=== PATIENT | female | born 1945 | race Caucasian/White ===

== ENCOUNTER 2023-06-04 05:41 | Inpatient (IN) | payer MEDICARE, OTHER, SELFPAY ==
[2023-06-04] VITALS (17 sets, daily range): BP systolic 128–174; BP diastolic 69–99; PULSE 124; O2SAT 92–94; BMI 19.7; BMI 18.6
[2023-06-04] MEDS: DUONEB 3 ML INH ×5 (04:19→20:49)
[2023-06-04] MEDS: DECADRON 6 MG IV (04:19)
--- NOTE | 2023-06-04 04:23 | ED.GENMED ---
History of Present Illness
<Keo Smith MD - Last Filed: 06/04/23 13:10>
General
Chief Complaint: Breathing Problem
Source: patient and ambulance crew
Exam Limitations: none
Time Seen by Provider: 06/04/23 04:01
Nursing documentation reviewed up to this point in time: agreed with
Travel History
Have you had any contact with someone who has COVID-19?: No
Do you have any symptoms of coronavirus? Fever > 100 degrees, chills, cough, shortness of breath, sore throat, loss of taste or smell, muscle aches, or headache?: No
History of Present Illness
History of Present Illness:
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 Denies fever or chills. Denies chest pain. Denies chest palpitations. Denies back
pain. Denies nausea, vomiting, or diarrhea. Denies leg pain or swelling. Denies recent travel or surgery. Denies sick contact. Denies recent change in medications or diet. Per paramedics, patient's pulse ox was 88% on 2 L of oxygen with
significantly decreased breath sounds, along with respiratory distress. Patient was initially placed on CPAP, which she could not tolerate. Patient was given DuoNeb in route to the hospital along with supplemental oxygen.
Past History
<Keo Smith MD - Last Filed: 06/04/23 13:10>
Past History
ED Past Medical History: COPD and HTN
ED Past Surgical History: Gynecological and Orthopedic
Review of Systems
<Keo Smith MD - Last Filed: 06/04/23 13:10>
Review of Systems
Allergies reviewed?: Yes
All Other Systems: ROS reviewed and negative except as documented in HPI and ROS
Constitutional: Reports no symptoms; Denies fever
EENT: Reports no symptoms
Respiratory: Reports cough and trouble breathing
Cardiac: Reports no symptoms
ABD/GI: Reports no symptoms
: Reports no symptoms
Musculoskeletal: Reports no symptoms
Skin: Reports no symptoms
Neurological: Reports no symptoms
Phy Exam
<Keo Smith MD - Last Filed: 06/04/23 13:10>
Physical Exam
Physical Exam:
Physical Exam
General: mild respiratory distress, not acutely ill. afebrile
Head: nc/at. eomi
Neck: supple. no meningeal signs.
Heart: tachycardic, no murmur. equal radial pulses.
Lungs: mild respiratory distress. expiratory wheezing bilaterally with diminished breath sounds.
Abdomen: normal bowel sounds. not tender.
Neuro: alert and oriented. no focal neurological deficits
Skin: no rash
Psychiatric: well kept. interactive and cooperative
Extremities: no edema. no calf tenderness
<CLEMENT David - Last Filed: 06/04/23 05:45>
Heart Failure Risk
Heart Failure Risk Score: Not Applicable
Course
<Keo Smith MD - Last Filed: 06/04/23 13:10>
Orders/Labs/Results
Orders:
Orders
06/04/23 04:09
Dexamethasone Sod Phosphate [Decadron] 6 mg IV NOW STA
Ipratropium/Albuterol Sulfate [Duoneb] 3 ml INH R NOW ONE
06/04/23 04:10
Electrocardiogram (*1) Urgent
Reason for Study: Shortness of Breath
EKG- Treatment ONCE
CR Chest Portable - 1 View Urgent
Comment:
Reason For Exam: cough/sob
Reason Study Needs to be Portable: Patient Unstable
06/04/23 04:11
Dexamethasone Sod Phosphate [Decadron] 20 mg .ROUTE .STK-MED ONE
Ipratropium/Albuterol Sulfate [Duoneb] 3 ml .ROUTE .STK-MED ONE
06/04/23 04:21
COVID-19 Antigen Urgent
Source: Nasal Swab
Complete Blood Count/With Diff Urgent
Comprehensive Metabolic Panel Urgent
D-Dimer Urgent
Magnesium Urgent
Troponin I Urgent
Dexamethasone Sod Phosphate [Decadron] 6 mg IV NOW STA
06/04/23 05:29
Admit/Transfer Patient As Directed
Co-Sign Provider:
Level of Care: Inpatient admission
Assign to:: Telemetry
Physician / Group: Carmine
Diagnosis: Acute COPD Exac
Reason for Telemetry: Arrhythmia
Date to Stop Telemetry: 06/07/23
Time to Stop Telemetry: 11:00
Reason for Hospitalization: COPD
Expected length of stay greater than two midnights?: Yes
ELOS- Estimated Length of Stay in days: 3
I certify the patient meets the requirements for IP care: Yes
06/04/23 05:30
Code Status As Directed
Resuscitation Status: Full Code
06/04/23 07:40
Troponin I Q6H
Acetaminophen [Tylenol] 650 mg PO Q4HPRN PRN
Albuterol Nebs [Ventolin Nebules] 2.5 mg INH R Q4HPRN PRN
06/04/23 07:40
Consult Notification Routine
Specialty to Notify: Pulmonary
Date consulting provider notified: 06/04/23
Time consulting provider notified: 07:43
Notified:: Provider
Comment: TT @ [phone]
PULMONARY CONSULT Routine
Consulting Provider: Antonio Sweeney
Was physician already notified: No
Reason for consult: AE-COPD
Activity As Directed
Activity Level: Ambulate
With Assistance
I/O [Intake/ Output] As Directed
Frequency: Per unit guidelines
Vital Signs As Directed
Frequency: Per unit guidelines
Chest PT [Rx Chest Pt] [RESP] Routine
Special Instructions: BID
Oxygen Therapy [O2 Therapy] [RESP] Routine
Titrate/Wean O2 to maintain O2 sat greater than (%): 94
Ot Eval And Treat Routine
PT Consult [Pt Eval And Treat] Routine
Activity Level: Ambulate
With Assistance
DX Deep Vein Thrombosis Video Routine
06/04/23 08:00
Amlodipine [Norvasc] 10 mg PO DAILY
Budesonide [Pulmicort] 0.5 mg INH R BID
Famotidine [Pepcid] 20 mg PO DAILY
Guaifenesin [Mucinex] 1,200 mg PO Q12
Ipratropium/Albuterol Sulfate [Duoneb] 3 ml INH R QID
Levothyroxine [Synthroid] 50 mcg PO DAILY@0700
06/04/23 09:00
Lisinopril [Zestril] 30 mg PO DAILY
06/04/23 10:00
Doxycycline Hyclate [Vibramycin] 100 mg 0.9% Sodium Chloride 250 ml [Nss] 250 ml IV Q12H
06/04/23 12:00
Dexamethasone Sod Phosphate [Decadron] 4 mg IV Q8H
06/04/23 13:40
Troponin I Q6H
06/04/23 18:00
Enoxaparin Sodium [Lovenox] 40 mg SC QPM
06/04/23 19:40
Troponin I Q6H
06/04/23 22:00
Montelukast Sodium [Singulair] 10 mg PO HS
Pravastatin Sodium [Pravachol] 20 mg PO HS
06/05/23 Breakfast
Regular
At Your Request: Full Participation
Basic Metabolic Panel IN AM
Complete Blood Count/No Diff IN AM
06/07/23 11:00
DC Protocol for Telemetry ONCE
Abnormal Lab Results
06/04/23
04:21
WBC 12.6 H 10^3/uL
(4.8-10.8)
RBC 4.09 L 10^6/uL
(4.20-5.40)
MCH 31.5 H pg
(27.0-31.0)
MPV 11.5 H fL
(7.4-10.4)
Abs Immat Gran (auto) 0.1 H 10^3/uL
(0-0.05)
Absolute Neuts (auto) 7.0 H 10^3/uL
(1.4-6.5)
Absolute Lymphs (auto) 3.7 H 10^3/uL
(1.2-3.4)
Absolute Monos (auto) 1.4 H 10^3/uL
(0.1-0.6)
Monocytes % 11.1 H %
(1.7-9.3)
Glucose 142 H mg/dl
(70-99)
06/04/23 04:21
06/04/23 04:21
Vital Signs
Initial and Last Documented VS:
Initial Vital Signs
Pulse Ox
100
06/04/23 04:02
Last Documented Vital Signs
Temp Pulse Resp BP Pulse Ox
98 F 122 18 148/77 95
06/04/23 12:32 06/04/23 12:32 06/04/23 12:32 06/04/23 12:32 06/04/23 12:32
<CLEMENT David - Last Filed: 06/04/23 05:45>
Orders/Labs/Results
Orders:
Orders
06/04/23 04:09
Dexamethasone Sod Phosphate [Decadron] 6 mg IV NOW STA
Ipratropium/Albuterol Sulfate [Duoneb] 3 ml INH R NOW ONE
06/04/23 04:10
Electrocardiogram (*1) Urgent
Reason for Study: Shortness of Breath
EKG- Treatment ONCE
CR Chest Portable - 1 View Urgent
Comment:
Reason For Exam: cough/sob
Reason Study Needs to be Portable: Patient Unstable
06/04/23 04:11
Dexamethasone Sod Phosphate [Decadron] 20 mg .ROUTE .STK-MED ONE
Ipratropium/Albuterol Sulfate [Duoneb] 3 ml .ROUTE .STK-MED ONE
06/04/23 04:21
COVID-19 Antigen Urgent
Source: Nasal Swab
Complete Blood Count/With Diff Urgent
Comprehensive Metabolic Panel Urgent
D-Dimer Urgent
Magnesium Urgent
Troponin I Urgent
Dexamethasone Sod Phosphate [Decadron] 6 mg IV NOW STA
06/04/23 05:29
Admit/Transfer Patient As Directed
Co-Sign Provider:
Level of Care: Inpatient admission
Assign to:: Telemetry
Physician / Group: Carmine
Diagnosis: Acute COPD Exac
Reason for Telemetry: Arrhythmia
Date to Stop Telemetry: 06/07/23
Time to Stop Telemetry: 11:00
Reason for Hospitalization: COPD
Expected length of stay greater than two midnights?: Yes
ELOS- Estimated Length of Stay in days: 3
I certify the patient meets the requirements for IP care: Yes
06/04/23 05:30
Code Status As Directed
Resuscitation Status: Full Code
06/04/23 07:40
Troponin I Q6H
Acetaminophen [Tylenol] 650 mg PO Q4HPRN PRN
Albuterol Nebs [Ventolin Nebules] 2.5 mg INH R Q4HPRN PRN
06/04/23 07:40
Consult Notification Routine
Specialty to Notify: Pulmonary
Date consulting provider notified: 06/04/23
Time consulting provider notified: 07:43
Notified:: Provider
Comment: TT @ [phone]
PULMONARY CONSULT Routine
Consulting Provider: Antonio Sweeney
Was physician already notified: No
Reason for consult: AE-COPD
Activity As Directed
Activity Level: Ambulate
With Assistance
I/O [Intake/ Output] As Directed
Frequency: Per unit guidelines
Vital Signs As Directed
Frequency: Per unit guidelines
Chest PT [Rx Chest Pt] [RESP] Routine
Special Instructions: BID
Oxygen Therapy [O2 Therapy] [RESP] Routine
Titrate/Wean O2 to maintain O2 sat greater than (%): 94
Ot Eval And Treat Routine
PT Consult [Pt Eval And Treat] Routine
Activity Level: Ambulate
With Assistance
DX Deep Vein Thrombosis Video Routine
06/04/23 08:00
Amlodipine [Norvasc] 10 mg PO DAILY
Budesonide [Pulmicort] 0.5 mg INH R BID
Famotidine [Pepcid] 20 mg PO DAILY
Guaifenesin [Mucinex] 1,200 mg PO Q12
Ipratropium/Albuterol Sulfate [Duoneb] 3 ml INH R QID
Levothyroxine [Synthroid] 50 mcg PO DAILY@0700
06/04/23 09:00
Lisinopril [Zestril] 30 mg PO DAILY
06/04/23 10:00
Doxycycline Hyclate [Vibramycin] 100 mg 0.9% Sodium Chloride 250 ml [Nss] 250 ml IV Q12H
06/04/23 12:00
Dexamethasone Sod Phosphate [Decadron] 4 mg IV Q8H
06/04/23 13:40
Troponin I Q6H
06/04/23 18:00
Enoxaparin Sodium [Lovenox] 40 mg SC QPM
06/04/23 19:40
Troponin I Q6H
06/04/23 22:00
Montelukast Sodium [Singulair] 10 mg PO HS
Pravastatin Sodium [Pravachol] 20 mg PO HS
06/05/23 Breakfast
Regular
At Your Request: Full Participation
Basic Metabolic Panel IN AM
Complete Blood Count/No Diff IN AM
06/07/23 11:00
DC Protocol for Telemetry ONCE
Abnormal Lab Results
06/04/23
04:21
WBC 12.6 H 10^3/uL
(4.8-10.8)
RBC 4.09 L 10^6/uL
(4.20-5.40)
MCH 31.5 H pg
(27.0-31.0)
MPV 11.5 H fL
(7.4-10.4)
Abs Immat Gran (auto) 0.1 H 10^3/uL
(0-0.05)
Absolute Neuts (auto) 7.0 H 10^3/uL
(1.4-6.5)
Absolute Lymphs (auto) 3.7 H 10^3/uL
(1.2-3.4)
Absolute Monos (auto) 1.4 H 10^3/uL
(0.1-0.6)
Monocytes % 11.1 H %
(1.7-9.3)
Glucose 142 H mg/dl
(70-99)
06/04/23 04:21
06/04/23 04:21
Vital Signs
Initial and Last Documented VS:
Initial Vital Signs
Pulse Ox
100
06/04/23 04:02
Last Documented Vital Signs
Temp Pulse Resp BP Pulse Ox
98 F 122 18 148/77 95
06/04/23 12:32 06/04/23 12:32 06/04/23 12:32 06/04/23 12:32 06/04/23 12:32
<Keo Smith MD - Last Filed: 06/04/23 13:10>
MDM/Problems Addressed
MDM/Problems Addressed:
Chest x-ray: No acute findings. COVID-negative
Patient reports significant improvement in symptoms after treatment.
History and exam consistent with likely COPD exacerbation versus acute bronchitis. Patient will be admitted for further evaluation and treatment.
<Keo Smith MD - Last Filed: 06/04/23 13:10>
*EKG
Interpreted by ED Provider?: Yes
Heart Rate: 117
Rate: tachycardiac
Rhythm: sinus and PVC's
[place]: normal axis
Interval: normal interval
<CLEMENT David - Last Filed: 06/04/23 05:45>
*Critical Care Note
Total Time (30-74mins, 75-104mins- exclusive of procedures): Not Applicable
ED Attending Note
<Keo Smith MD - Last Filed: 06/04/23 13:10>
-
Portions of this chart may have been created with voice recognition software.� Occasional wrong word or��sound alike� substitutions may have occurred due to the inherent limitations of voice recognition software.
Discharge Plan
Departure
Patient Disposition: Admit
Date of Disposition: 06/04/23
Time of Disposition: 04:58
Admit to: Telemetry
Presentation/result/management discussed w/ accepting MD/DO: Hospitalist
Condition: Fair
Covid-19: Negative COVID-19
Discharge Problem:
COPD exacerbation
Interventions
Interventions:
*Risk Screen - Suicide Last Done: 06/04/23 04:03
*General Assessment Last Done: 06/04/23 04:03
*Neglect/Abuse Screening Last Done: 06/04/23 04:03
ED- Fall Risk Assessment Last Done: 06/04/23 04:03
*ED COVID-19 Vaccine History Last Done: 06/04/23 04:03
ED- Cardiac Assessment Last Done: 06/04/23 04:24
ED- Pulmonary Assessment Last Done: 06/04/23 04:24
[2023-06-04 04:38] LABS: % Basophils 1.1 % (0-2); % Eosinophils 1.9 % (0-6); % Immature Granulocytes 0.5 % (0-0.5); % Lymphocytes 29.7 % (20.5-51.1); % Monocytes 11.1 % (1.7-9.3); % Neutrophils 55.7 % (42.2-75.2); Absolute Basophils 0.1 10^3/uL (0-0.2); Absolute Eosinophils 0.2 10^3/uL (0-0.7); Absolute Immature Granulocytes 0.1 10^3/uL (0-0.05); Absolute Lymphocytes 3.7 10^3/uL (1.2-3.4); Absolute Monocytes 1.4 10^3/uL (0.1-0.6); Hematocrit 39.1 % (37.0-47.0); Hemoglobin 12.9 g/dL (12.0-16.0); Mean Corpuscular Hgb 31.5 pg (27.0-31.0); Mean Corpuscular Volume 95.6 fL (81.0-99.0); Mean Platelet Volume 11.5 fL (7.4-10.4); Nucleated Red Blood Cells % 0 %; Platelet Count 370 10^3/uL (130-400); Red Blood Cell Count 4.09 10^6/uL (4.20-5.40); Red Cell Dist. Width 12.8 % (11.5-14.5); White Blood Cell Count 12.6 10^3/uL (4.8-10.8)
[2023-06-04 04:44] LABS: COVID-19 Antigen Negative (Negative)
[2023-06-04 04:47] LABS: D-Dimer 0.41 ug/mlFEU (0.00-0.50)
[2023-06-04 04:49] LABS: ALT (SGPT) 22 U/L (0-35); AST (SGOT) 30 U/L (14-36); Albumin 4.8 g/dl (3.5-5.0); Alkaline Phosphatase 43 U/L (38-126); Blood Urea Nitrogen 15 mg/dl (7-17); Calcium 9.9 mg/dl (8.4-10.2); Carbon Dioxide 29 mmol/L (22-30); Chloride 101 mmol/L (98-107); Estimated Creatinine Clearance 44 ml/min; Glucose 142 mg/dl (70-99); Potassium 4.2 mmol/L (3.5-5.1); Sodium 138 mmol/L (135-145); Total Bilirubin 0.6 mg/dl (0.2-1.3); Total Protein 7.4 g/dl (6.3-8.2); eGFR > 60.00
[2023-06-04 05:00] LABS: Troponin I < 0.012 ng/ml
--- NOTE | 2023-06-04 05:33 | HPS.HSE ---
Family Physician
-
Family Physician: Shantelle Strickland
Chief Complaint
-
SOB
History of Present Illness
Patient is a 77y F with PMH significant for COPD who presents to ED complaining of SOB. Patient states that she has been more SOB than usual for the past week or so. She has had increased cough that was productive early in the week - but has
become gradually less so. Cough is now described as 'tight'. She has been wearing her O2 at 2 lpm at all times at home for the past 3 days or so (usually 1 lpm during the day and 2 lpm at HS). She has been using her nebs as prescribed but has
noted no significant improvement in her symptoms.
Patient states that she woke around 2AM feeling SOB. She checked her SpO2 at home and it was in the 80s. She attempted to get her breath, but ultimately woke her around 3 AM and presented to the ED for further evaluation.
Patient states that she also appreciated chest heaviness / L sided chest discomfort with this AM's symptoms.
Patient has been treated in the ED with oxygen, nebs and steroids and notes that she feels improved from initial arrival.
Patient was last hospitalized for similar in 09/2022.
She is followed locally by Dr. Ahmadi.
Medical History
Past Medical History
Past Medical History: Reports Other
Additional Past Medical History:
COPD
Hypertension
Hypothyroidism
Skin Cancer
Past Surgical History: Reports Other
Additional Past Surgical History:
Hysterectomy
Spinal Surgery
Foot Surgery
Skin Cancer Excision
Social History
Tobacco: Former Smoker (Quit smoking 2011. > 50 pack years total use.)
Alcohol: Occasional
Drug: None
Personal:
Living: With Family
Family History
Family History: Not pertinent
Allergies / Home Medications
Allergies reflects when Allergies were last updated in [facility].
Home Medications with original date entered in [facility]
Allergy/Medication List:
Allergies
Allergy/AdvReac Type Severity Reaction Status Date / Time
No Known Allergies Allergy Verified 06/04/23 04:02
Home Medications
amlodipine 10 mg tablet 10 mg PO DAILY Blood pressure 02/15/09
levothyroxine 50 mcg tablet 50 mcg PO DAILY Thyroid 02/15/09
lisinopril 30 mg tablet (Zestril) 30 mg PO DAILY Blood pressure 02/15/09
montelukast 10 mg tablet 10 mg PO HS Allergies 02/15/09
fluticasone fur. 100 mcg-umeclid 62.5 mcg-vilant 25 mcg inhalat.powder (Trelegy Ellipta) 1 ea inhalation R DAILY Lung/breathing issues 09/17/22
pravastatin 20 mg tablet 20 mg PO HS High cholesterol 09/17/22
budesonide 0.5 mg/2 mL suspension for nebulization 0.5 mg (2 mL) inhalation BID 30 days #120 mL 09/25/22
famotidine 20 mg tablet 20 mg PO DAILY 30 days #30 tabs 09/25/22
nebulizer and compressor #1 ea 09/25/22
albuterol sulfate 2.5 mg/3 mL (0.083 %) solution for nebulization 2.5 mg inhalation BID 06/04/23
Review of Systems
-
History Source: Patient
A 12 point ROS was completed and negative except as noted: Yes
Constitutional: Reports Fatigue; Denies Fever or Chills
EENT: Denies Sore Throat
Respiratory: Reports Cough and Trouble Breathing; Denies Hemoptysis
Cardiac: Reports Chest Pain; Denies Diaphoresis, Palpitations or Syncope
Abdomen/GI: Denies Abdominal Pain, Nausea, Vomiting or Diarrhea
: Denies Dysuria or Frequency
Musculoskeletal: Reports Edema; Denies Joint Pain
Neurological: Denies Dizzy or Headache
Psych: Denies Depression or Anxiety
Physical Exam
Vital Signs
Vital Signs
Temp Pulse Resp BP Pulse Ox
98.1 F 114 24 173/83 96
06/04/23 04:03 06/04/23 04:03 06/04/23 04:03 06/04/23 04:03 06/04/23 04:24
Physical Exam
General: Other (77y F in moderate distress due to dyspnea.)
HEENT: Moist mucous membranes, PERRLA and Other (Neck supple.)
Respiratory: Other (Markedly diminished breath sounds throughout. Faint end expiratory wheezing. Purse-lipped breathing with accessory muscle use.)
Cardiac: S1/S2 and Tachycardia; No Murmur
GI: Soft, Non Tender, Non Distended and Normal Bowel Sounds
Musculoskeletal: No Clubbing, No Cyanosis and Other (1+ pitting edema b/l ankles)
Neuro: AO x 3
Laboratory Results
-
06/04/23 04:21
06/04/23 04:21
Laboratory Results
Total Bilirubin 0.6 mg/dl (0.2-1.3) 06/04/23 04:21
AST 30 U/L (14-36) 06/04/23 04:21
ALT 22 U/L (0-35) 06/04/23 04:21
Alkaline Phosphatase 43 U/L (38-126) 06/04/23 04:21
Troponin I < 0.012 ng/ml 06/04/23 04:21
Impression/Plan
-
A/P: Patient is a 77y F with PMH significant for COPD and hypertension who presents to ED complaining of SOB.
AE-COPD
Acute Hypoxemic Respiratory Insufficiency secondary to the above
- Admit for further evaluation and treatment.
- Markedly diminished breath sounds throughout at present.
- IV steroids, O2 support, nebs ATC and PRN.
- IV doxycycline for now given harsh cough / mucus production.
- Chest PT / mucolytics.
- Pulm evaluation - followed by Dr. Ahmadi as an outpatient.
- Follow for clinical improvement.
Benign Hypertension
- Stable. Continue outpatient med regimen with holding parameters.
Hypothyroidism
- Stable. Continue T4 supplementation.
DVT Prophylaxis: Lovenox
Code Status: Full
[2023-06-04] MEDS: PULMICORT 0.5 MG INH ×2 (08:26→20:49)
[2023-06-04] MEDS: PEPCID 20 MG PO (09:07)
[2023-06-04] MEDS: MUCINEX 1200 MG PO ×2 (09:07→21:03)
[2023-06-04] MEDS: SYNTHROID 50 MCG PO (09:07)
[2023-06-04] MEDS: NORVASC 10 MG PO (09:07)
[2023-06-04] MEDS: ZESTRIL 30 MG PO (09:19)
[2023-06-04] MEDS: VIBRAMYCIN 260 MG IV ×2 (10:41→22:44)
--- NOTE | 2023-06-04 12:54 | W.PN.HOSP.TC ---
Today's Communication/Plan
-
continue Decadron
currently on Doxy, will defer to pulm if abx should be broadened
CT scan of chest
Assessment / Plan
Assessment / Plan
A/P:� Patient is a 77y F with PMH significant for COPD and hypertension who presents to ED complaining of SOB.
AE-COPD
Acute Hypoxemic Respiratory Insufficiency secondary to the above
�- Admit for further evaluation and treatment.
�- Improved breath sounds throughout at present with significant wheeze
�- IV steroids, O2 support, nebs ATC and PRN.
�- IV doxycycline for now given harsh cough / mucus production.
�- Chest PT / mucolytics.
�- Pulm evaluation - followed by Dr. Ahmadi as an outpatient.
�- Follow for clinical improvement.
continue Decadron 4 mg IV q8h
CT scan of chest
Benign Hypertension
�- Stable.� Continue outpatient med regimen with holding parameters.
Hypothyroidism
�- Stable.� Continue T4 supplementation.
DVT Prophylaxis:� Lovenox
Code Status:� Full
reviewed with at bedside
Anticipated Discharge: > 48 hours
Subjective/Interval History
-
Date of Service: June 04, 2023
remains sob, freq coughing
Objective Data
-
Labs:
Laboratory Results
06/04/23
04:21
WBC 12.6 H
Hgb 12.9
Hct 39.1
Plt Count 370
Sodium 138
Potassium 4.2
Chloride 101
Carbon Dioxide 29
BUN 15
Creatinine 0.8
Glucose 142 H
Calcium 9.9
Total Bilirubin 0.6
AST 30
ALT 22
Alkaline Phosphatase 43
Vital Signs:
Vital Signs
Temp Pulse Resp BP Pulse Ox
98 F 122 18 148/77 95
06/04/23 12:32 06/04/23 12:32 06/04/23 12:32 06/04/23 12:32 06/04/23 12:32
Review of Systems
-
Constitutional: Denies Fever
EENT: Reports No Symptoms Reported
Respiratory: Reports Cough, Trouble Breathing and Wheezing
Cardiac: Reports No Symptoms; Denies Chest Pain
Musculoskeletal: Reports No Symptoms
Physical Exam
-
General: Well Developed, Well Nourished and Respiratory Distress
HEENT: Normocephalic, Atraumatic and Moist Mucous Membranes
Respiratory: Wheezes (holoexpiratory wheeze) and Rhonchi (very rhonchus cough)
Cardiac: Regular Rhythm and S1/S2
GI: Soft, Nontender and Nondistended
Musculoskeletal: No Clubbing, No Cyanosis and No Edema
[2023-06-04] MEDS: DECADRON 4 MG IV ×2 (12:56→21:04)
--- NOTE | 2023-06-04 14:25 | PTCARENOTE ---
Patient unable to complete Ct scan of chest. Patient was too SOB. Patient on 4L NC 95%, RR 30-32, pursed lip breathing, unable to complete a sentence. Earlier it took patient 10 mins to recover from using BSC. Physician made aware and respiratory.
--- NOTE | 2023-06-04 15:00 | PTCARENOTE ---
Report given to Jeane, transfer patient to [id number].
--- NOTE | 2023-06-04 15:15 | PTCARENOTE ---
Physician at bedside, patient received neb treatment. Patient is breathing better and moving air better. RR 22, 4L NC 94-96%
--- NOTE | 2023-06-04 15:43 | CON.PUL ---
Consultation
Consultation Request
Date/Time Consultation Requested: 06-04-23
Date/Time Consultation Performed: 06-04-23
Requesting Provider: Hospitalist
Performing Provider: Dr Lara
Reason for Consultation: dyspnea
Medical History
-
Chief Complaint: dyspnea
History of Present Illness:
Ms Santiago Richardson is a 77/W adm with acute on chronic dyspnea and acute on chronic dry cough.
Known h/o very severe COPD, on comprehensive BD therapy and home O2 at 2LPM
Noticed mild improvement in dyspnea since after adm
Her previous unintentional wt loss has improved as c/w September 2022: depression/anxiety/poor appetite due to lung cancer diagnosis [currently on chemo-XRT at [facility] and locally]), and very severe COPD
Past Medical History
Past Medical History: Other (see A&P for PMH/PSH)
Social History
Tobacco: Former Smoker
Alcohol: None
Drug: None
Personal:
Living: With Family
Employment: Not Employed
Family History
Family History: Reviewed & Not Pertinent
Allergies / Home Medications
Allergies
Allergy/AdvReac Type Severity Reaction Status Date / Time
No Known Allergies Allergy Verified 06/04/23 04:02
Home Medications
Medication Instructions Recorded Confirmed Last Taken Type
amlodipine 10 mg tablet 10 mg PO DAILY Blood pressure 02/15/09 06/04/23 06/03/23 History
levothyroxine 50 mcg tablet 50 mcg PO DAILY@0600 Thyroid 02/15/09 06/04/23 06/03/23 History
lisinopril 30 mg tablet (Zestril) 30 mg PO DAILY Blood pressure 02/15/09 06/04/23 06/03/23 History
montelukast 10 mg tablet 10 mg PO HS Allergies 02/15/09 06/04/23 06/03/23 History
fluticasone fur. 100 mcg-umeclid 1 ea inhalation R DAILY 09/17/22 06/04/2324 History
62.5 mcg-vilant 25 mcg Lung/breathing issues
inhalat.powder (Trelegy Ellipta)
pravastatin 20 mg tablet 20 mg PO HS High cholesterol 09/17/22 06/04/23 06/03/23 History
famotidine 20 mg tablet 20 mg PO DAILY 30 days #30 tabs 09/25/22 06/04/23 06/03/23 Rx
acetaminophen 500 mg tablet 1,000 mg PO HS 06/04/23 06/04/23 06/03/23 History
(Tylenol Extra Strength)
albuterol sulfate 2.5 mg/3 mL 2.5 mg inhalation R BID 06/04/23 06/04/23 06/03/23 History
(0.083 %) solution for nebulization
albuterol sulfate 90 mcg/actuation 2 puff inhalation R Q6HPRN PRN sob 06/04/23 06/04/23 Unknown History
aerosol inhaler (ProAir HFA)
budesonide 0.5 mg/2 mL suspension 0.5 mg inhalation R BID 06/04/23 06/04/23 06/03/23 History
for nebulization
guaifenesin 400 mg tablet 400 mg PO BID 06/04/23 06/04/23 06/03/23 History
omega 6-hpn-wsb-fish oil 1,000 mg 1 cap PO DAILY 06/04/23 06/04/23 06/03/23 History
(120 mg-180 mg) capsule (Fish Oil)
therapeutic multivitamin 1 tab PO DAILY 06/04/23 06/04/23 06/03/23 History
Review of Systems
-
History Source: Patient
All other systems: Negative unless noted
Constitutional: Fatigue
Respiratory: Cough and Trouble Breathing
Neuro: Weakness
Vitals / Labs / Diagnostic Testing
Vital Signs
Temp Pulse Resp BP Pulse Ox
98 F 120 24 149/75 94
06/04/23 12:32 06/04/23 15:15 06/04/23 15:15 06/04/23 14:15 06/04/23 15:15
Lab Data
06/04/23 04:21
06/04/23 04:21
Diagnostic Testing:
Physical Exam
-
HEENT: Normocephalic and Moist Mucous Membranes
Cardiovascular: Regular Rhythm, Murmur (n) and Peripheral Edema (trace MAUREEN)
Respiratory: Wheeze (trace), Rhonchi and Accessory Resp Muscle Use (mild)
GI: Soft, Non Distended and Non Tender
Neurology: Awake, AO x 3 and No Motor Deficits
Skin: Dry
General: Respiratory Distress (mild at rest on O2)
Assessment
-
Assessment:
Ms Santiago Richardson is a 77/W adm with acute on chronic dyspnea and acute on chronic dry cough. Known h/o very severe COPD, on comprehensive BD therapy and home O2 at 2LPM
Impression:
AECOPD
Chronic leukocytosis
Negative COVID
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
COPD, on nocturnal home O2 at 2LPM, added exertional O2 2L for last 6m, on trelegy, albuterol HFA/nebs, montelukast
HTN
Hypothyroidism
HLD
Recent HZ, L posterior thigh
Contrast allergy
Plan:
O2 protocol to continue
Baseline O2 at home 2L
Currently at 4L, POx 94% at rest
States mild improvement of dyspnea since adm
Reports some increase in chronic dry cogh
Reports compliance to outpatient COPD regimen
Empiric doxycycline IV started at ER 06-04, continue
Procure sputum sample
Mucolytics
Acapella valve
She is not on chronic antimicrobial prophylaxis for COPD
Continue dexam as prescribed on adm: 4 mg IV q8
Will taper depending on response
She is not on chronic systemic CS
Continue Dns qid and alb ns prn for now
Hold LABDs for now, eventually return to trelegy
Continue budesonide
OK to continue budesonide, DNs, montelukast. Although we may consider resume trelegy upon d/c, she may benefit from ongoing nebulized therapy in the interim until seen in the office
Will need nebulizer prescription at d/c
DVT prophylaxis
Full code status
D/w and Mr Richardson
Follow with Dr Ahmadi as scheduled
Diagnostic tests:
CXR 06-04-23: portable, no infiltrates. Emphysematous lewis
Chest CTA 09-18-22
Comparison examination: Chest CT 11/09/2020
FINDINGS:
There is no pulmonary embolism.
There is no aortic dissection.
There is no pneumothorax.
There are no abnormal pleural or parenchymal masses.
There is no pleural effusion.
There is no significant parenchymal airspace disease.
The mediastinum is normal.
There is no hilar or mediastinal lymphadenopathy.
There is no axillary lymphadenopathy.
There is mild right middle lobe consolidation. There is mild atelectasis versus scarring of the lingula.
There is severe cystic change mostly in the right upper lung field but also the right lower lobe and left upper lung consistent with emphysematous disease.
There is a simple left renal cyst measuring 3.7 cm.
There is minimal atherosclerotic vascular disease. The osseous structures show mild degenerative disease.
IMPRESSION: No evidence of pulmonary embolus.
Mild right middle lobe consolidation. This may represent atelectasis or pneumonia. Stable
Mild lingular atelectasis versus scarring. Stable
Severe emphysematous disease. Stable
Simple left renal cyst. Stable
MAUREEN doppler 09-17-22: negative
TTE 01-07-23: LVEF 65%. Normal RV
--- NOTE | 2023-06-04 16:19 | PTCARENOTE ---
Received patient from ED via stretcher. AAOx3, assisted to bed. Assessed and oriented to room. estate agent reading ST. Breath sounds diminished. Tachypneic and pursed lip breathing noted. Call marina in close reach. Family at bedside.
[2023-06-04 16:49] LABS: Troponin I < 0.012 ng/ml
[2023-06-04] MEDS: LOVENOX 40 MG SC (17:27)
--- NOTE | 2023-06-04 19:30 | PTCARENOTE ---
Patient arrived to the unit via stretcher. Patient transferred over onto the bed. AAOx2. Disoriented to time. Patient confused on why she was here, RN called patient's daughter from room and put patient at ease. Patient educated on medications and
plan care. Stated she as in some pain in her LE's. BLIND INSTALLER ordered PRN tylenol. See MAR. Patient made comfortable in bed.
[2023-06-04] MEDS: PRAVACHOL 20 MG PO (21:04)
[2023-06-04] MEDS: SINGULAIR 10 MG PO (21:04)
[2023-06-04 22:46] LABS: Troponin I < 0.012 ng/ml
[2023-06-05] MEDS: DECADRON 4 MG IV ×3 (03:23→22:33)
[2023-06-05 03:27] VITALS: BP 122/72
[2023-06-05] MEDS: SYNTHROID 50 MCG PO (06:10)
[2023-06-05 07:25] VITALS: BP 111/56
[2023-06-05] MEDS: DUONEB 3 ML INH ×4 (07:43→20:14)
[2023-06-05] MEDS: PULMICORT 0.5 MG INH ×2 (07:43→20:13)
[2023-06-05 08:16] LABS: Hematocrit 33.3 % (37.0-47.0); Hemoglobin 10.9 g/dL (12.0-16.0); Mean Corp Hgb Conc. 32.7 g/dL (33.0-37.0); Mean Corpuscular Hgb 31.4 pg (27.0-31.0); Mean Platelet Volume 11.4 fL (7.4-10.4); Platelet Count 292 10^3/uL (130-400); Red Blood Cell Count 3.47 10^6/uL (4.20-5.40); Red Cell Dist. Width 13.2 % (11.5-14.5); White Blood Cell Count 7.9 10^3/uL (4.8-10.8)
[2023-06-05] MEDS: VIBRAMYCIN 260 MG IV (08:59)
[2023-06-05] MEDS: ZESTRIL 30 MG PO (08:59)
[2023-06-05] MEDS: MUCINEX 1200 MG PO ×2 (08:59→22:32)
[2023-06-05] MEDS: NORVASC 10 MG PO (08:59)
[2023-06-05] MEDS: PEPCID 20 MG PO (08:59)
[2023-06-05 09:51] LABS: Blood Urea Nitrogen 20 mg/dl (7-17); Calcium 8.9 mg/dl (8.4-10.2); Carbon Dioxide 27 mmol/L (22-30); Chloride 101 mmol/L (98-107); Estimated Creatinine Clearance 41 ml/min; Glucose 140 mg/dl (70-99); Potassium 4.9 mmol/L (3.5-5.1); Sodium 137 mmol/L (135-145); eGFR > 60.00
--- NOTE | 2023-06-05 10:21 | W.PN.HOSP.TC ---
Addendum entered and electronically signed by Honey Bennett MD 06/05/23 14:41:
Acute on chronic� Hypoxic respiratory Failure
-see treatment plan below
Underweight
- appreciate dietary
Original Note:
Today's Communication/Plan
-
decadron
duonebs
doxycycline
appreciate pulm
Assessment / Plan
Assessment / Plan
A/P:� Patient is a 77y F with PMH significant for COPD and hypertension who presents to ED complaining of SOB.
AE-COPD
Acute Hypoxemic Respiratory Insufficiency secondary to the above
�- Improved breath sounds throughout at present with significant wheeze
�- IV steroids, O2 support, nebs ATC and PRN.
�- continue doxycycline given harsh cough / mucus production.
�- Chest PT / mucolytics.
�- Pulm evaluation appreciated- followed by Dr. Ahmadi as an outpatient.
�- Follow for clinical improvement.
continue Decadron 4 mg IV q8h
CT scan of chest w/out contrast ordered
-will need nebulizer prescription at [place] - consult placed
Patient needs a nebulizer due to chronic lung disease.
Benign Hypertension
�- Stable.� Continue outpatient med regimen with holding parameters.
Hypothyroidism
�- Stable.� Continue T4 supplementation.
DVT Prophylaxis:� Lovenox
Code Status:� Full
reviewed with at bedside
Anticipated Discharge: > 48 hours
Subjective/Interval History
-
Date of Service: June 05, 2023
patient with some deep breathing when I walked in stating she was anxious from IV leaking
still very OOB with using bathroom, anxiety
nebulizers help
she is able to converse with me
Objective Data
-
Labs:
Laboratory Results
06/05/23
07:24
WBC 7.9
Hgb 10.9 L
Hct 33.3 L
Plt Count 292 D
Sodium 137
Potassium 4.9
Chloride 101
Carbon Dioxide 27
BUN 20 H
Creatinine 0.8
Glucose 140 H
Calcium 8.9
Vital Signs:
Vital Signs
Temp Pulse Resp BP Pulse Ox
98.1 F 96 18 111/56 97
06/05/23 07:25 06/05/23 07:50 06/05/23 07:50 06/05/23 07:25 06/05/23 09:05
I&O
06/04/23 06/05/23 06/06/23
06:59 06:59 06:59
Intake Total 920 / 920
Balance 920 / 920
Review of Systems
-
History Source: Patient
All other systems: Reviewed and negative
Physical Exam
-
General: Well Developed, Well Nourished and Respiratory Distress
HEENT: Normocephalic, Atraumatic and Moist Mucous Membranes
Respiratory: Wheezes (end expiratory ) and Decreased Breath Sounds
Cardiac: Regular Rhythm and S1/S2
GI: Soft, Nontender and Nondistended
Musculoskeletal: No Clubbing, No Cyanosis and No Edema
Skin: Warm and Dry; Negative Rash
Neuro: AO x 3
Psych: Anxious
Data Reviewed
-
Diagnostic Radiology: Report Reviewed by me
Labs: Labs Reviewed by me
--- NOTE | 2023-06-05 11:24 | W.PN.PUL3 ---
Today's Communication / Plan
-
O2
Atb
Sputum cx
BDs
CS
Assessment
-
Assessment:
Ms Santiago Richardson is a 77/W adm with acute on chronic dyspnea and acute on chronic dry cough. Known h/o very severe COPD, on comprehensive BD therapy and home O2 at 2LPM
Impression:
AECOPD
Chronic leukocytosis
Negative COVID
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
Very COPD, on nocturnal and exertional home O2 at 2LPM, on trelegy, albuterol HFA/nebs, montelukast
HTN
Hypothyroidism
HLD
Plan:
O2 protocol to continue
Baseline O2 at home 2L
Currently at 4L, POx 96% at rest
States mild improvement of dyspnea since adm
Reports some increase in chronic dry cough, today able to expectorate small amount of yellow sputum (sent for cx 06-05)
Reports compliance to outpatient COPD regimen
Empiric doxycycline IV started at ER 06-04, continue
Mucolytics
Acapella valve
She is not on chronic antimicrobial prophylaxis for COPD
Continue dexam as prescribed on adm: 4 mg IV q8, keep for now
Will taper depending on response
She is not on chronic systemic CS
Continue Dns qid and alb ns prn for now
Hold LABDs for now, eventually return to trelegy
Continue budesonide
OK to continue budesonide, DNs, montelukast.
DVT prophylaxis
Full code status
D/w and Mr Dylan on a daily basis
Follow with Dr Ahmadi as scheduled
Diagnostic tests:
CXR 06-04-23: portable, no infiltrates. Emphysematous lewis
Chest CTA 09-18-22
Comparison examination: Chest CT 11/09/2020
FINDINGS:
There is no pulmonary embolism.
There is no aortic dissection.
There is no pneumothorax.
There are no abnormal pleural or parenchymal masses.
There is no pleural effusion.
There is no significant parenchymal airspace disease.
The mediastinum is normal.
There is no hilar or mediastinal lymphadenopathy.
There is no axillary lymphadenopathy.
There is mild right middle lobe consolidation. There is mild atelectasis versus scarring of the lingula.
There is severe cystic change mostly in the right upper lung field but also the right lower lobe and left upper lung consistent with emphysematous disease.
There is a simple left renal cyst measuring 3.7 cm.
There is minimal atherosclerotic vascular disease. The osseous structures show mild degenerative disease.
IMPRESSION: No evidence of pulmonary embolus.
Mild right middle lobe consolidation. This may represent atelectasis or pneumonia. Stable
Mild lingular atelectasis versus scarring. Stable
Severe emphysematous disease. Stable
Simple left renal cyst. Stable
MAUREEN doppler 09-17-22: negative
TTE 01-07-23: LVEF 65%. Normal RV
Subjective Data
-
Date of Service:
Date of Service: June 05, 2023
Chief Complaint: Pulmonary Follow Up
Subjective:
No major events reported overnight
No able to expectorate scanty yellowish sputum this morning
Review of Systems
General: Fever (n), Sweats (n), Chills (n) and Satisfactory Appetite
HEENT: Epistaxis (n) and Dysphagia (n)
Cardiopulmonary: Dyspnea, Cough, Sputum Production and Wheezing
GI: Abdominal Pain (n), Nausea (n) and Vomiting (n)
Neuro: Weakness
Objective Data
Data Reviewed
Vital Signs / I&O / Oxygen:
Vital Signs
Temp Pulse Resp BP Pulse Ox
98.1 F 96 18 111/56 97
06/05/23 07:25 06/05/23 07:50 06/05/23 07:50 06/05/23 07:25 06/05/23 09:05
Intake and Output
06/04/23 06/05/23 06/06/23
06:59 06:59 06:59
Intake Total 920 / 920
Balance 920 / 920
SaO2 97
Nasal Cannula flow liters per 4
minute
Physical Exam
General: Comfortable
HEENT: Normocephalic and Moist Mucous Membranes
Cardiovascular: Regular Rhythm, Murmur (n), JVD, Peripheral Edema (n) and Calf Tenderness (n)
Respiratory: Wheeze (trace), Rhonchi, Accessory Resp Muscle Use and Stridor (n)
GI: Soft, Non Distended and Non Tender
Neurology: AO x 3 and No Motor Deficits
Skin: Dry
Labs/Micro/Reports
Lab Data
06/05/23 07:24
06/05/23 07:24
[2023-06-05 11:29] VITALS: BP 162/76
--- NOTE | 2023-06-05 13:47 | CM ---
Reviewed chart, met with patient, her spouse and two sons to obtain information for assessment. Patient stated that she lives in a multi-story town home with one step to enter a stair glide to get from the first floor to the next.
Patient described herself as independent with some of her ADLs, dressing, bathing and toileting. Her spouse is home and available in the event she gets sob. 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
they both do laundry.
Patient is on continuos o2 2 liters. She has a concentrator and portable units. She has a nebulizer but it is old. She has a rollator that she uses when she gets tired.
Patient has a prescription plan and uses the [facility] in [place] for all of her medications. She has a cardiologist whom she sees as well as a PCP.
Patient has had VN services in the past through [facility]. She denied wanting them post this admission. She has never been to a SNF and is hopeful just to be able to return right home when she is medically cleared for discharge.
Plan: Case management will continue to follow and assist with discharge planning. Patient is hoping to be able to return home with no needs. Received consult for nebulizer.
--- NOTE | 2023-06-05 14:16 | PN.CDI ---
CDI
- -
CDI:
Physician Documentation Request
Admit Date: 06/04/23 05:41
Dear Doctor Donald,
Please review the following and provide your response in the progress notes.
Clinical Indicators:
Height:5 ft 2 in
Weight: 101 lb 9.6 oz
BMI:18.6
Other Clinical Notes: Pulmonology consult,' ....poor appetite due to lung cancer diagnosis...'
If possible, please provide an associated diagnosis related to the abnormal BMI, such as:
BMI < or = to 19
Underweight
Cachexia
- Other
Use of terms such as suspected, likely, concern for, or probable (associated with a specific diagnosis that is being evaluated, monitored, or treated as if it exists) are acceptable and can be coded in the inpatient setting, when documented at the
time of discharge.
Thank you,
Jeanie Ascencio RN
CDI Specialist
[place] [facility]
Please use your independent medical judgment in providing your response.
--- NOTE | 2023-06-05 14:19 | PN.CDI ---
CDI
- -
CDI:
Physician Documentation Request
Admit Date: 06/04/23 05:41
Dear Doctor Donald,
Please review the following and provide your response in the progress notes.
Clinical Indicators:
Pt admitted with COPD exacerbation on 2 LPM home oxygen via NC
Documented throughout the record, ' Acute Hypoxemic Respiratory Insufficiency ...'
Documented per EMS record, ' ...sitting in tripod position on the edge of her bed stating she can't breathing.The patient in obvious and severe distress with tachypnea, accessory muscle use and speaking in 1-2 word sentences .The patient was also
noted to be pursed lip breathing and found on nasal oxygen at 2 LPM ...The patient stated she has a history of COPD and is always on oxygen via NC NC @ 2 LPM ...pulse ox was initially 82 % ...NRB mask was replaced with duoneb treatment... placed
on CPAP.After about 1 minute she was complaining of increased trouble breathing ...It was replaced with the NRB @ 20 LPM .' 15 LPM Pulse 116, RR 36 effort labored 36
Pt care note 06/04 @ 1425, ' Patient was too SOB. Patient on 4L NC 95%, RR 30-32, pursed lip breathing, unable to complete a sentence. Earlier it took patient 10 mins to recover from using BSC..'
Documented per ED, ' Patient with history of oxygen dependent COPD (2 L via nasal cannula), presents to ED secondary to worsening shortness of breath with cough over the past 3 days...mild respiratory distress... tachycardic, ...'
Documented per H&P,' She has been wearing her O2 at 2 lpm at all times at home for the past 3 days or so (usually 1 lpm during the day and 2 lpm at HS)...She checked her SpO2 at home and it was in the 80s. ....Respiratory: Other (Markedly
diminished breath sounds throughout. Faint end expiratory wheezing. Purse-lipped breathing with accessory muscle use.)...'
Clarify which of the following accurately represents the patient's respiratory status:
Acute on chronic Hypoxic respiratory Failure
Chronic Hypoxic respiratory Failure
COPD exacerbation -only
Hypoxia
Other
Additional information for Respiratory Failure:
Recognized criteria for Respiratory Failure (Source: [facility] Feb/Mar 2013)
ABGs: (1 or more) Symptoms Please indicate type if known
1. p)2 <60 or RA SPO2 <91% on RA 1. Tachypnea, SOB, dyspnea Hypoxic
2. pCO2 50 and pH <7.35 2. Use of accessory muscles Hypercapnic
3. pO2 decrease of pCO2 increase by 3. Pallor or cyanosis Hypoxic and Hypercapnic
10 mmHg from baseline if known 4. Anxiety or restlessness Unable to determine
5. Unable to speak in full sentences
Supplemental O2 of > 40% (5LPM) Intubation is not required
Use of terms such as suspected, likely, concern for, or probable (associated with a specific diagnosis that is being evaluated, monitored, or treated as if it exists) are acceptable and can be coded in the inpatient setting, when documented at the
time of discharge.
Thank you,
Jeanie Ascencio RN
CDI Specialist
[place] [facility]
Please use your independent medical judgment in providing your response.
[2023-06-05 15:36] VITALS: BP 136/66
[2023-06-05] MEDS: LOVENOX 40 MG SC (17:00)
[2023-06-05] MEDS: TYLENOL 650 MG PO (17:04)
[2023-06-05 19:20] VITALS: BP 137/68
[2023-06-05] MEDS: SINGULAIR 10 MG PO (22:33)
[2023-06-05] MEDS: PRAVACHOL 20 MG PO (22:33)
[2023-06-05] MEDS: VIBRAMYCIN 100 MG PO (22:33)
[2023-06-05 23:03] VITALS: BP 118/58
[2023-06-06] VITALS (8 sets, daily range): BP systolic 110–161; BP diastolic 57–115; PULSE 104; O2SAT 93
[2023-06-06] MEDS: DECADRON 4 MG IV ×3 (04:12→21:15)
[2023-06-06] MEDS: SYNTHROID 50 MCG PO (05:31)
[2023-06-06] MEDS: PULMICORT 0.5 MG INH ×2 (07:27→19:50)
[2023-06-06] MEDS: DUONEB 3 ML INH ×4 (07:27→19:50)
[2023-06-06] MEDS: ZESTRIL 30 MG PO (09:28)
[2023-06-06] MEDS: MUCINEX 1200 MG PO ×2 (09:28→21:15)
[2023-06-06] MEDS: VIBRAMYCIN 100 MG PO (09:28)
[2023-06-06] MEDS: NORVASC 10 MG PO (09:28)
[2023-06-06] MEDS: PEPCID 20 MG PO (09:29)
--- NOTE | 2023-06-06 10:30 | W.PN.HOSP.TC ---
Today's Communication/Plan
-
Continue with current steroids with a taper.
Continue with nebulizers and antibiotics
For CT chest today.
Assessment / Plan
Assessment / Plan
A/P:� Patient is a 77y F with PMH significant for COPD and hypertension who presents to ED complaining of SOB.
AE-COPD
Acute Hypoxemic Respiratory Insufficiency secondary to the above
�- Improved breathing but still symptomatic
�- IV steroids without taper, O2 support, nebs ATC and PRN.
�- continue doxycycline given harsh cough / mucus production.
�- Chest PT / mucolytics.
�- Pulm evaluation appreciated- followed by Dr. Ahmadi as an outpatient.
�- Follow for clinical improvement.
continue Decadron 4 mg IV q8h
CT scan of chest w/out contrast ordered-patient with shortness of breath and also getting worked up and anxious about her chest CT. Will give 1 dose of Ativan.
-will need nebulizer prescription at [facility] consult placed
Patient needs a nebulizer due to chronic lung disease.
Benign Hypertension
�- Stable.� Continue outpatient med regimen with holding parameters.
Hypothyroidism
�- Stable.� Continue T4 supplementation.
DVT Prophylaxis:� Lovenox
Code Status:� Full
reviewed with at bedside
Anticipated Discharge: > 48 hours
Subjective/Interval History
-
Date of Service: June 06, 2023
Patient overall feeling improved with her breathing since admission. At home she could not even breathe. Now she is able to breathe little better but still having struggle this morning. She is also very anxious about her CAT scan chest today.
She does not take anything for anxiety.
Objective Data
-
Vital Signs:
Vital Signs
Temp Pulse Resp BP Pulse Ox
98.0 F 94 22 132/60 98
06/06/23 07:30 06/06/23 09:28 06/06/23 07:33 06/06/23 09:28 06/06/23 07:33
I&O
06/05/23 06/06/23 06/07/23
06:59 06:59 06:59
Intake Total 920 / 920 720 / 720
Balance 920 / 920 720 / 720
Review of Systems
-
Constitutional: Denies Fever
EENT: Denies Sore Throat
Respiratory: Reports Cough and Trouble Breathing
Cardiac: Denies Chest Pain
Abdomen/GI: Denies Abdominal Pain, Nausea or Vomiting
Neuro: Denies Dizzy
Physical Exam
-
General: No Apparent Distress
HEENT: Moist Mucous Membranes
Respiratory: Decreased Breath Sounds (In general); Negative Non Labored Respirations (Tachypnea) or Accessory Resp Muscle Use
Cardiac: Regular Rhythm and S1/S2
Musculoskeletal: No Edema
Neuro: AO x 3; Negative Tremors
Psych: Calm; Negative Confused
Data Reviewed
-
Labs: Labs Reviewed by me
[2023-06-06] MEDS: ATIVAN 0.5 MG PO (11:13)
--- NOTE | 2023-06-06 12:01 | W.PN.PUL3 ---
Today's Communication / Plan
-
O2
Azithro
Sputum cx
BDs
CS with wean as tolerated
Assessment
-
Assessment:
Ms Santiago Richardson is a 77/W adm with acute on chronic dyspnea and acute on chronic dry cough. Known h/o very severe COPD, on comprehensive BD therapy and home O2 at 2LPM
Impression:
AECOPD
Chronic leukocytosis - resolved 06/05/2023
Negative COVID
Conditions LABELING STRATEGIST:
Severe COPD (post-BD FEV1: 44%, DLco: 27% via PFT from 05/2018), on nocturnal and exertional home O2 at 2LPM, on trelegy, albuterol HFA/nebs, montelukast
HTN
Hypothyroidism
HLD
Plan:
O2 protocol to continue --> titrate to keep SpO2 >88% and <96%
Baseline O2 at home 2L
Currently at 4L, POx 96% at rest
States mild improvement of dyspnea since adm and seems to worsen with anxiety
Reports some increase in chronic dry cough, able to expectorate small amount of yellow sputum (sent for cx 06-05)
Reports compliance to outpatient COPD regimen
Empiric doxycycline IV started at ER 06-04, continue
There is no evidence of pneumonia on CT chest today --> change doxy to azithro for anti-inflammatory effect
Mucolytics
Acapella valve
She is not on chronic antimicrobial prophylaxis for COPD
Continue dexam as prescribed on adm: 4 mg IV q8, keep for now
Will taper depending on response
She is not on chronic systemic CS
Continue Dns qid and alb ns prn for now
Hold LABDs for now, eventually return to trelegy
Continue budesonide
OK to continue budesonide, DNs, montelukast.
DVT prophylaxis
Full code status
D/w Mrs and Mr Richardson on a daily basis
Pulmonary service will continue to follow along. I discussed above plan with the patient and her and they verbalized understanding to their satisfaction.
Follow with Dr Ahmadi as scheduled
Diagnostic tests:
CXR 06-04-23: portable, no infiltrates. Emphysematous lewis
Chest CTA 09-18-22
Comparison examination: Chest CT 11/09/2020
FINDINGS:
There is no pulmonary embolism.
There is no aortic dissection.
There is no pneumothorax.
There are no abnormal pleural or parenchymal masses.
There is no pleural effusion.
There is no significant parenchymal airspace disease.
The mediastinum is normal.
There is no hilar or mediastinal lymphadenopathy.
There is no axillary lymphadenopathy.
There is mild right middle lobe consolidation. There is mild atelectasis versus scarring of the lingula.
There is severe cystic change mostly in the right upper lung field but also the right lower lobe and left upper lung consistent with emphysematous disease.
There is a simple left renal cyst measuring 3.7 cm.
There is minimal atherosclerotic vascular disease. The osseous structures show mild degenerative disease.
IMPRESSION: No evidence of pulmonary embolus.
Mild right middle lobe consolidation. This may represent atelectasis or pneumonia. Stable
Mild lingular atelectasis versus scarring. Stable
Severe emphysematous disease. Stable
Simple left renal cyst. Stable
MAUREEN doppler 09-17-22: negative
TTE 01-07-23: LVEF 65%. Normal RV
Subjective Data
-
Date of Service:
Date of Service: June 06, 2023
Chief Complaint: Pulmonary Follow Up
Subjective:
Seen today. Saturating 97% on 3 L/min nasal cannula. She feels like her breathing is better today and that it is directly related to anxiety. She took Ativan today prior to her CT chest send the Ativan really helped her breathing. She denies
chest pain, headache, worsening shortness of breath, fevers or chills.
Review of Systems
General: Other (12 point ROS performed and is negative unless mentioned above.)
Objective Data
Data Reviewed
Vital Signs / I&O / Oxygen:
Vital Signs
Temp Pulse Resp BP Pulse Ox
98.1 F 104 22 144/65 92
06/06/23 15:38 06/06/23 15:38 06/06/23 15:38 06/06/23 15:38 06/06/23 15:38
Intake and Output
06/05/23 06/06/23 06/07/23
06:59 06:59 06:59
Intake Total 920 / 920 720 / 720
Balance 920 / 920 720 / 720
SaO2 92
Nasal Cannula flow liters per 3
minute
Physical Exam
General: Respiratory Distress (Negative) and Comfortable
HEENT: Normocephalic and Moist Mucous Membranes
Cardiovascular: Regular Rhythm, Murmur (n), JVD, Peripheral Edema (n) and Calf Tenderness (n)
Respiratory: Wheeze (trace), Rhonchi, Accessory Resp Muscle Use (Negative), Stridor (n) and Other (Grossly diminished breath sounds)
GI: Soft, Non Distended and Non Tender
Neurology: AO x 3 and No Motor Deficits
Skin: Warm and Dry
Labs/Micro/Reports
Lab Data
06/05/23 07:24
06/05/23 07:24
Microbiology
06/05/23 13:22 Sputum Respiratory Culture - Final
06/05/23 13:22 Sputum Gram Stain - Final
[2023-06-06] MEDS: LOVENOX 40 MG SC (18:26)
[2023-06-06] MEDS: ZITHROMAX INFUSION 250 IV (18:26)
[2023-06-06] MEDS: PRAVACHOL 20 MG PO (21:15)
[2023-06-06] MEDS: SINGULAIR 10 MG PO (21:15)
[2023-06-06] MEDS: TYLENOL 650 MG PO (21:30)
[2023-06-07] VITALS (68 sets, daily range): BP systolic 51–176; BP diastolic 31–102; BMI 18.9
[2023-06-07] MEDS: DECADRON 4 MG IV ×3 (04:34→20:00)
[2023-06-07] MEDS: SYNTHROID 50 MCG PO (05:29)
[2023-06-07] MEDS: PULMICORT 0.5 MG INH (07:52)
[2023-06-07] MEDS: DUONEB 3 ML INH ×4 (07:52→19:35)
[2023-06-07 08:09] LABS: Hematocrit 32.9 % (37.0-47.0); Mean Corp Hgb Conc. 33.4 g/dL (33.0-37.0); Mean Corpuscular Hgb 32.3 pg (27.0-31.0); Mean Corpuscular Volume 96.5 fL (81.0-99.0); Mean Platelet Volume 12.3 fL (7.4-10.4); Platelet Count 312 10^3/uL (130-400); Red Blood Cell Count 3.41 10^6/uL (4.20-5.40); Red Cell Dist. Width 13.2 % (11.5-14.5); White Blood Cell Count 11.3 10^3/uL (4.8-10.8)
[2023-06-07] MEDS: NORVASC 10 MG PO (09:34)
[2023-06-07] MEDS: MUCINEX 1200 MG PO (09:34)
[2023-06-07] MEDS: PEPCID 20 MG PO (09:34)
[2023-06-07] MEDS: ZESTRIL 30 MG PO (09:34)
[2023-06-07] MEDS: ZITHROMAX 250 MG PO (09:35)
[2023-06-07] MEDS: ATROVENT NEBULES 1 MG INH (10:05)
[2023-06-07] MEDS: XOPENEX 1.25 MG INHALANT SOLUTION INH (10:05)
[2023-06-07] MEDS: MORPHINE SULFATE 1 MG IV (10:12)
[2023-06-07] MEDS: FLUSH (NSS) 2 FLUSH IV (10:13)
--- NOTE | 2023-06-07 10:20 | RR ---
A Rapid Response was called on this patient, please see Rapid Response form.
--- NOTE | 2023-06-07 10:20 | PTCARENOTE ---
0940 assisted patient back to bed from commode, heart rate as high as 160's, resp rate 34/min patient struggling to breath. pox 89% on 4l nasal cannula, patient reporting SOB and pain in left chest and of feeling hot. O2 increased to 6 liters,
0945 Dr Reaves and resp therapist texted and asked to come and see patient. 1000 EKG completed, Dr and therapist at bedside , updated. Xopenex treatment given, heart remaining in 130's 1015, morphine 1mg IV given as ordered, neb finished and patient
less responsive, not following commands, rapid respnse called and Dr Reaves texted with update and asked to return to room. Doctor at bedside within minutes. see rapid response form.
[2023-06-07 10:29] LABS: Glucose - Point of Care 181 mg/dl (70-99)
[2023-06-07 10:37] LABS: B.E. -0.3 mmol/L; O2 Saturation % 88.6 % (94-98); PO2 60 mmHg (83-108)
[2023-06-07 10:40] LABS: pH 7.15 (7.35-7.45)
[2023-06-07 10:41] LABS: PCO2 89 mmHg (32-35)
[2023-06-07 11:09] LABS: Hematocrit 40.5 % (37.0-47.0); Hemoglobin 13.1 g/dL (12.0-16.0); Mean Corp Hgb Conc. 32.3 g/dL (33.0-37.0); Mean Corpuscular Volume 98.8 fL (81.0-99.0); Mean Platelet Volume 11.8 fL (7.4-10.4); Platelet Count 415 10^3/uL (130-400); Red Cell Dist. Width 13.1 % (11.5-14.5); White Blood Cell Count 16.8 10^3/uL (4.8-10.8)
[2023-06-07] MEDS: SUBLIMAZE 50 MCG IV ×3 (11:28→12:53)
[2023-06-07] MEDS: SUBLIMAZE 100 IV (11:29)
[2023-06-07 11:39] LABS: ALT (SGPT) 31 U/L (0-35); AST (SGOT) 34 U/L (14-36); Albumin 4.8 g/dl (3.5-5.0); Alkaline Phosphatase 45 U/L (38-126); Blood Urea Nitrogen 25 mg/dl (7-17); Calcium 9.3 mg/dl (8.4-10.2); Carbon Dioxide 32 mmol/L (22-30); Chloride 99 mmol/L (98-107); Estimated Creatinine Clearance 37 ml/min; Glucose 207 mg/dl (70-99); Potassium 5.3 mmol/L (3.5-5.1); Sodium 135 mmol/L (135-145); Total Bilirubin 0.6 mg/dl (0.2-1.3); Total Protein 7.6 g/dl (6.3-8.2); eGFR > 60.00
[2023-06-07 11:50] LABS: Troponin I < 0.012 ng/ml
--- NOTE | 2023-06-07 12:08 | W.PN.INTV ---
Today's Communication / Plan
Recommendations
Continue mechanical ventilation
Follow chest tube output
Daily chest x-ray
Continue steroids
Continue nebulizers
Continue sedation
Assessment
-
Acute hypercapnic respiratory failure due to severe exacerbation of COPD-transfer from floors 06/07/2023
Emergently intubated at the bedside in the ICU-06/07/2023
CT chest this admission: Severe emphysema. No pneumonia.
Spontaneous secondary pneumothorax on the left
Status post emergent chest tube placement 06/07/2023
Conditions INVESTIGATIONS MANAGER:
Severe COPD (post-BD FEV1: 44%, DLco: 27% via PFT from 05/2018), on nocturnal and exertional home O2 at 2LPM, on trelegy, albuterol HFA/nebs, montelukast
Follows with Dr. Ahmadi
HTN
Hypothyroidism
HLD
Assessment and plan:
Critically ill: Emergently intubated due to worsening shortness of breath-initially admitted for acute exacerbation of COPD.
ABG prior to intubation 7 ..
Emergently intubated: I was at the bedside during intubation: Tooth #7 was placed-#8 tube too large for her.
Developed hypotension post propofol and paralysis for intubation.
Small amount of Dylan-Synephrine was given.
Fluid resuscitation with normal saline was given.
-
On exam noted asymmetric breath sounds. Chest x-ray confirmed left pneumothorax moderate to large.
Immediately discussed with interventional radiology: Dr. Marlow came at the bedside and placed a chest tube.
Currently with continuous airleak.
-
On mechanical ventilation unable to deliver tidal volumes due to ongoing air leak.
Pulmonary mechanics reviewed.
Personally adjusted mechanical ventilation to pressure control.
Will target tidal volume between 280 and 300 to decrease transpulmonary pressure.
PEEP of 5.
Maintain respiratory rate of 14
Maintain sedation
Repeat ABG, will adjust minute ventilation as necessary.
Will keep sedation
-
Remains hypotensive: PICC line will be placed.
Started Levophed, maintain mean arterial blood pressure 65 mmHg.
Hopefully hemodynamics will improve as sedation wears off. Will try to minimize as able.
Hold antihypertensives
-
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
Will continue conservative management.
-
Continue steroids
Nebulizers
Azithromycin for anti-inflammatory properties
Recent CT chest without pneumonia.
Obtain a sputum culture.
-
Dobbhoff tube will be placed: Start tube feedings
-
Monitor blood sugars on high-dose of steroids
Insulin sliding scale
-
DVT prophylaxis subcu Lovenox
PPI for GI prophylaxis
-
Personally discussed case with primary team, interventional radiology, anesthesia. Records reviewed.
-
Critical care statement: A total of 60 minutes of critical care time was provided for this patient today. This includes management of unstable vital signs, evaluation of the patient at bedside, reviewing the patient's pertinent medical records
including ventilator settings, arterial blood gases, radiographs, microbiology, laboratory evaluations and discussion with primary team, critical care nursing, and respiratory therapy.
Subjective Dataa
Subjective Data
Date of Service:
Date of Service: June 07, 2023
Chief Complaint: Sod Cutter Follow Up (Acute respiratory failure-hypercapnic due to severe COPD exacerbation)
Subjective:
Patient transferred to the ICU 06/07/2023 emergently after developing acute onset shortness of breath after moving to the commode.
ABG performed: Showed acute hypercapnic respiratory failure.
Immediately, immediately, anesthesia was called by me. Anesthesia was called stat by me-patient was intubated with a #7 ET tube. I was at the bedside during the course of the intubation.
Patient was sedated.
After intubation it was noted asymmetric breath sounds. Decreased on the left.
Stat chest x-ray demonstrated left pneumothorax.
I personally also call interventional radiology, chest tube was placed.
Patient is unable to provide history.
Records reviewed: Patient has severe emphysema/COPD follows in our office with Dr. Ahmadi.
Review of Systems
General: Fever and Unobtainable - Sedation
Objective Data
Data Reviewed
Vital Signs / I&O / Oxygen:
Vital Signs
Temp Pulse Resp BP Pulse Ox
96.6 F L 143 32 156/74 91
06/07/23 11:27 06/07/23 10:05 06/07/23 10:05 06/07/23 09:34 06/07/23 10:05
Intake and Output
06/06/23 06/07/23 06/08/23
06:59 06:59 06:59
Intake Total 720 / 720 1200 / 1200
Balance 720 / 720 1200 / 1200
SaO2 91
Nasal Cannula flow liters per 6
minute
Physical Exam
General: Respiratory Distress (Severe on exam)
HEENT: Normocephalic
Cardiovascular: S1-S2, JVD and Other (Tachycardic)
Respiratory: Other (Decreased breath sounds bilaterally throughout)
GI: Soft and Non Distended
Neurology: Awake and Other (Moving 4 extremities, follows simple commands.)
Skin: Other (Cold extremities)
Labs/Micro/Reports
Lab Data
06/07/23 10:55
06/07/23 10:55
Laboratory Results
06/07/23 06/07/23
10:28 10:55
pH 7.15 L* Cancelled
pCO2 89 H* Cancelled
pO2 60 L Cancelled
HCO3 31.0 H Cancelled
O2 Delivery Level Cancelled
Microbiology
06/05/23 13:22 Sputum Respiratory Culture - Final
06/05/23 13:22 Sputum Gram Stain - Final
[2023-06-07 12:54] LABS: B.E. -0.8 mmol/L; HCO3 24.3 mmol/L (21-28); O2 Saturation % 98.7 % (94-98); PCO2 41 mmHg (32-35); PO2 81 mmHg (83-108); pH 7.38 (7.35-7.45)
[2023-06-07 13:29] LABS: Glucose - Point of Care 191 mg/dl (70-99)
[2023-06-07] MEDS: NOVOLOG FLEXPEN-LOW RESISTANCE 1 UNITS SC ×2 (13:57→17:43)
--- NOTE | 2023-06-07 14:49 | PTCARENOTE ---
Pt is s/p rapid response. Pt had gotten OOB to commode x 2 this am. Pt became tachypneic,dyspneic with decreased LOC after the second time OOB.
1042-Pt transported to ICU via bed with RNs and RT.Dr Monahan at bedside.No breath sounds auscultated throughout.Pt remains tachypneic and dyspneic. She is awake and nods yes when physician asked if she wanted to be intubated.
1045-Intubated by GEOTHERMAL OPERATING ENGINEER as per MD order. #7 ETT 21 cm.Pt hypotensive.500 ml NSS bolus given as per MD order.Post intubation CXR completed.Left pneumo noted by physician.
1140-Left chest tube placed by IR MD. Draining serosang drainage.+ air leak noted.Dr Monahan made aware. Pt alarming for low tidal volume.Dr Monahan adjusted chest tube suction to 10cm.
1200-BP 73/43.Levophed initiated as per MD order.
1215-Right PICC placed as per MD order.Dobbhoff inserted as per MD order.
1500-Pt awakens to voice.Nods/shakes head appropriately to questions.Her is at bedside.Plan of care discussed.Fentanyl,Propofol and Levophed gtts infusing via right PICC.#7 ETT to vent. PCMV 16 14/5 40%.Coarse diminished breath sounds
throughout.Sputum C&S sent.POX 94%Dobbhoff clamped.Pt incontinent moderate amount urine.
--- NOTE | 2023-06-07 15:07 | W.PN.HOSP.TC ---
Today's Communication/Plan
-
Call her and updated him
Discussed with the critical care
Discussed with the nurse
Prognosis is poor
Assessment / Plan
Assessment / Plan
Physical exam:
General: Lethargic but oriented x3, continue to get worse, in respiratory distress, tachypneic and tachycardic
HEENT: No active discharge, ecchymosis or bruising, moist lips, tongue and mucous membrane.
Eyes: No discharge or red conjunctiva, no nystagmus, pupils are reactive and equal
Neck:Supple, no JVD no bruit no goiter.
Respiratory: Normal AP contour and diameter, normal chest wall movement, normal respiratory effort, no respiratory distress,
Lungs: Diminished air entry bilaterally, no wheezing or rhonchi, no rales or crackles
Heart: S1, S2 regular, tachycardia, no added sound.
Gastrointestinal: Positive bowel sounds, soft, nontender, no guarding or rigidity or organomegaly
Musculoskeletal: , no chest wall abnormality or tenderness. All joints and extremities have good range of motion, no muscle tenderness or any joint swelling or tenderness.
Extremities: No pitting edema, good peripheral pulses, good range of motion
A/P:� Patient is a 77y F with PMH significant for COPD and hypertension who presents to ED complaining of SOB.
Acute respiratory distress:
Likely secondary to pneumothorax.
-Transfer to ICU and intubated
-Chest tube placement
-Management. Nuclear Process Engineer
-Discussed with lawn care professional
AE-COPD
Acute Hypoxemic Respiratory Insufficiency secondary to the above
�- Improved breathing but still symptomatic
�- IV steroids without taper, O2 support, nebs ATC and PRN.
�-Defer management to inflammatory factors for pulmonary
�- Pulm evaluation appreciated-
�- Follow for clinical improvement.
-Breathing treatment
Patient needs a nebulizer due to chronic lung disease.
Benign Hypertension
�- Stable.� Continue outpatient med regimen with holding parameters.
Hypothyroidism
�- Stable.� Continue T4 supplementation.
DVT Prophylaxis:� Lovenox
Code Status:� Full as discussed with the patient
Called her and updated him
Anticipated Discharge: > 48 hours
Subjective/Interval History
-
Date of Service: June 07, 2023
Seen and examined multiple times earlier today and BOAT DETAILER were called.
Earlier the morning she was doing well but she wanted to come over the bedside and she came back to the bedside chest pain with worsening shortness of breath and tachycardia, patient evaluated and she has worsening short of breath and tachycardia
cardia and tachypneic and left-sided chest pain continued, EKG done showed sinus tachycardia without acute change, she was clearly very anxious we will give 1 mg IV morphine. Just before the morphine were given she received a dose of Xopenex and
Atrovent while she was receiving dose according to the nurse she was becoming less responsive given her eyes wide awake and she was breathing on her own, after the morphine given she remained the same, patient was reevaluated closely, ensure coming
around even we gave some Narcan without major change,
Placed on nonrebreather mask, and eventually transferred to ICU where continued to get worse intubated while chest x-ray showed large left-sided pneumothorax. Chest tube placed
Objective Data
-
Labs:
Laboratory Results
06/07/23 06/07/23 06/07/23
06:09 10:28 10:55
WBC 11.3 H 16.8 H
Hgb 11.0 L 13.1
Hct 32.9 L 40.5
Plt Count 312 415 H D
HCO3 31.0 H Cancelled
Sodium 135
Potassium 5.3 H
Chloride 99
Carbon Dioxide 32 H
BUN 25 H
Creatinine 0.9
Glucose 207 H
Calcium 9.3
Total Bilirubin 0.6
AST 34
ALT 31
Alkaline Phosphatase 45
06/07/23
12:42
WBC
Hgb
Hct
Plt Count
HCO3 24.3
Sodium
Potassium
Chloride
Carbon Dioxide
BUN
Creatinine
Glucose
Calcium
Total Bilirubin
AST
ALT
Alkaline Phosphatase
Vital Signs:
Vital Signs
Temp Pulse Resp BP Pulse Ox
96.6 F L 102 14 116/51 94
06/07/23 11:27 06/07/23 14:00 06/07/23 14:00 06/07/23 14:00 06/07/23 14:42
I&O
06/06/23 06/07/23 06/08/23
07:59 07:59 07:59
Intake Total 720 / 720 1200 / 1200 618.2 / 618.2
Balance 720 / 720 1200 / 1200 618.2 / 618.2
Review of Systems
-
Unable to obtain full review of systems at this time due to: Acuity
[2023-06-07 15:23] LABS: Triglycerides 157 mg/dl (10-149)
--- NOTE | 2023-06-07 15:28 | PTOTSP ---
Patient transfer from [facility]- to ICU 06/07. DC OT, waiting for new eval orders when medically stable.
--- NOTE | 2023-06-07 16:29 | PTCARENOTE ---
Pt assessed.No change in assessment noted.
[2023-06-07] MEDS: LOVENOX 40 MG SC (17:36)
[2023-06-07] MEDS: DIPRIVAN 100 IV (17:51)
[2023-06-07 17:53] LABS: Glucose - Point of Care 152 mg/dl (70-99)
--- NOTE | 2023-06-07 18:08 | PTCARENOTE ---
Pt's son at bedside.Pt's eyes open.Pt gesturing to ETT,nodding head yes when I asked her if she wanted an explanation.She has no recall of this mornings events. This am's events and plan of care discussed with pt.Pt maintained full eye contact when
I was speaking to her.
[2023-06-07] MEDS: LEVOPHED 250 IV (20:30)
[2023-06-07] MEDS: PRAVACHOL 20 MG TUBE (22:30)
[2023-06-07] MEDS: SINGULAIR 10 MG TUBE (22:30)
[2023-06-07 23:44] LABS: Glucose - Point of Care 180 mg/dl (70-99)
[2023-06-08] VITALS (66 sets, daily range): BP systolic 75–145; BP diastolic 41–86; BMI 18.8
[2023-06-08] MEDS: NOVOLOG FLEXPEN-LOW RESISTANCE 1 UNITS SC (00:04)
--- NOTE | 2023-06-08 02:27 | PTCARENOTE ---
Rec'd care of patient at 1930. Patient intubated and sedated. Alert and following commands. Nodding head and mouthing words appropriately. Oriented x3. NSR with pvcs on tele. Trace edema in b/l LE. Palpable pulses. #7 ett @ 21 cm. Repositioned to
the left. PC A/C 16 14/5/40%. Left chest tube to wall suction, -[id number]. +1 air leak. Negative for tidaling/crepitus. Lung sounds diminished throughout. Right nare DHT in place. No TFs ordered at current time. Incontinent of urine. Purewick in
place. Around 2200, changes in chest tube observed. Air leak constant bubbling. Patient resting comfortably. No distress. Vital stable. No crepitus. Chest tube assessed for any kinks or disconnections. HAUL TRUCK DRIVER notified and CXR obtained. 'Small new left
inferior pneumothorax' found on CXR. No new orders. Assessment unchanged at 0000. Levophed gtt down to 3 mcg/min. Titrating for MAP >65.
[2023-06-08] MEDS: DIPRIVAN 100 IV (03:43)
[2023-06-08] MEDS: SUBLIMAZE 100 IV (03:43)
[2023-06-08] MEDS: DECADRON 4 MG IV ×2 (03:51→19:33)
--- NOTE | 2023-06-08 04:51 | PTCARENOTE ---
Air leak increased after patient observed to be coughing. Vitals stable. No crepitus. Dressing c/d/i. No changes in assessment.
[2023-06-08 04:55] LABS: Hematocrit 30.9 % (37.0-47.0); Hemoglobin 10.6 g/dL (12.0-16.0); Mean Corp Hgb Conc. 34.3 g/dL (33.0-37.0); Mean Corpuscular Hgb 31.7 pg (27.0-31.0); Mean Corpuscular Volume 92.5 fL (81.0-99.0); Mean Platelet Volume 11.5 fL (7.4-10.4); Platelet Count 327 10^3/uL (130-400); Red Blood Cell Count 3.34 10^6/uL (4.20-5.40); Red Cell Dist. Width 13.2 % (11.5-14.5); White Blood Cell Count 14.4 10^3/uL (4.8-10.8)
[2023-06-08 05:53] LABS: Blood Urea Nitrogen 21 mg/dl (7-17); Calcium 8.5 mg/dl (8.4-10.2); Carbon Dioxide 26 mmol/L (22-30); Chloride 103 mmol/L (98-107); Estimated Creatinine Clearance 42 ml/min; Glucose 144 mg/dl (70-99); Magnesium 2.6 mg/dl (1.6-2.3); Potassium 4.5 mmol/L (3.5-5.1); Sodium 133 mmol/L (135-145); eGFR > 60.00
[2023-06-08] MEDS: NOVOLOG FLEXPEN-LOW RESISTANCE SC ×2 (06:03→11:58)
[2023-06-08] MEDS: SYNTHROID 50 MCG PO (06:04)
[2023-06-08 06:20] LABS: Glucose - Point of Care 146 mg/dl (70-99)
[2023-06-08] MEDS: DUONEB 3 ML INH ×4 (07:42→20:18)
--- NOTE | 2023-06-08 08:23 | W.PN.HOSP.TC ---
Today's Communication/Plan
-
see A/P
Assessment / Plan
Assessment / Plan
HPI: Patient is a 77y F with PMH significant for COPD and hypertension who presents to ED complaining of SOB.
A/P:
# Acute hypercapnic respiratory failure on admission due to severe exacerbation of COPD
s/p Emergently intubated at the bedside in the ICU-06/07/2023
Cont sedation with propofol/fentanyl
GI ppx with IV Protonix (instead of MOBILE NURSE pepcid)
Cont IV Decadron, DuoNeb, Azithromycin for COPD
Industrial Insulator on board
# Spontaneous secondary pneumothorax on the left following intubation
Status post emergent chest tube placement 06/07/2023
Industrial Insulator on board
# Mild hyponatremia
# Benign Hypertension
BP low, hold MOBILE NURSE Norvasc and Lisinopril
Levophed started, cont
# Hypothyroidism, Stable.�
Continue T4 supplementation.
DVT Prophylaxis: Lovenox SQ
Code Status:�Full as discussed with the patient
DW RN
d/w on the phone
Anticipated Discharge: > 48 hours
Subjective/Interval History
-
Date of Service: June 08, 2023
Objective Data
-
Labs:
Laboratory Results
06/08/23 06/08/23
04:26 04:42
WBC 14.4 H
Hgb 10.6 L
Hct 30.9 L
Plt Count 327 D
Sodium Cancelled 133 L
Potassium Cancelled 4.5
Chloride Cancelled 103
Carbon Dioxide Cancelled 26
BUN Cancelled 21 H
Creatinine Cancelled 0.8
Glucose Cancelled 144 H
Calcium Cancelled 8.5
Vital Signs:
Vital Signs
Temp Pulse Resp BP Pulse Ox
37.4 C 66 14 101/62 97
06/08/23 07:47 06/08/23 07:46 06/08/23 07:46 06/08/23 07:25 06/08/23 07:46
I&O
06/07/23 06/08/23 06/09/23
06:59 06:59 06:59
Intake Total 1200 / 1200 1173.8 / 1196.2 22. / 22.4
Output Total 169 / 169
Balance 1200 / 1200 1004.8 / 1027.2 22. / .4
Review of Systems
-
Unable to obtain full review of systems at this time due to: Patient Intubation
Physical Exam
-
General: Intubated and Appears Chronically Ill
HEENT: Oxygen (on vent)
Respiratory: Chest Tubes (L side)
Cardiac: Regular Rhythm and S1/S2
GI: Soft, Nontender and Nondistended
Musculoskeletal: No Edema
Neuro: Sedated
Data Reviewed
-
Diagnostic Radiology: Image personally visualized and interpreted and Report Reviewed by me
Labs: Labs Reviewed by me
[2023-06-08] MEDS: TYLENOL ORAL SOLUTION 650 MG TUBE ×3 (08:37→21:58)
[2023-06-08] MEDS: ZITHROMAX 250 MG TUBE (08:37)
[2023-06-08] MEDS: MIRALAX 17 GRAMS TUBE (08:37)
[2023-06-08] MEDS: NSS (PRESERVATIVE FREE) 10 ML IV (09:05)
[2023-06-08] MEDS: PROTONIX IV 40 MG IV (09:06)
--- NOTE | 2023-06-08 10:40 | W.PN.INTV ---
Today's Communication / Plan
Recommendations
Will increase suction to -15
Repeat chest x-ray tomorrow morning
continue pressure control ventilation
wean sedation and try spontaneous breathing trial today
Continue nebulizers
Decrease steroids
Nutritional support.
*Lovenox for DVT prophylaxis
Assessment
-
77-year-old woman with history of COPD, initially admitted with acute exacerbation of COPD. Emergently transferred to ICU on 06/07/2023 after developing acute onset shortness of breath. Found to have a left-sided pneumothorax. Chest tube was
placed. Patient was intubated for hypercapnic respiratory failure.
Acute hypercapnic respiratory failure due to severe exacerbation of COPD-transfer from floors 06/07/2023
Emergently intubated at the bedside in the ICU-06/07/2023
CT chest this admission: Severe emphysema. No pneumonia.
Spontaneous secondary pneumothorax on the left
Status post emergent chest tube placement 06/07/2023
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
Severe COPD (post-BD FEV1: 44%, DLco: 27% via PFT from 05/2018), on nocturnal and exertional home O2 at 2LPM, on trelegy, albuterol HFA/nebs, montelukast
Follows with Dr. Ahmadi
HTN
Hypothyroidism
HLD
Assessment and plan:
Critically ill: Emergently intubated due to worsening shortness of breath-initially admitted for acute exacerbation of COPD.06/07/2023
Emergently intubated: I was at the bedside during intubation: Tooth #7 was placed-#8 tube too large for her.
-
Secondary spontaneous pneumothorax on the left.
Status post bedside chest tube placement
Continuous airleak present.
Will keep chest tube to suction
Chest x-ray this morning with persistent small left pneumothorax.
Will increase suction to -20 and repeat chest x-ray later today.(We have been trying to minimize suction) not ready for waterseal yet.
-
On mechanical ventilation unable to deliver tidal volumes due to ongoing air leak.
Pulmonary mechanics reviewed.
Personally adjusted mechanical ventilation to pressure control.
Will target tidal volume between 280 and 300 to decrease transpulmonary pressure.
PEEP of 5.
Maintain respiratory rate of 14
Maintain sedation-without change.
ABG 06/07/2023: 7.38/41/81-adequate oxygenation and ventilation.
-
Remains hypotensive:
PICC line in place.
Continue Levophed, maintain mean arterial blood pressure 65 mmHg.
Hold antihypertensives
-
No evidence for infection at this point.
-
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
Will continue conservative management.
-
Wean down steroids 4 mg IV every 12 hours.
Nebulizers
Azithromycin for anti-inflammatory properties
Recent CT chest without pneumonia. Normal respiratory danielle 06/05/2023
Tracheal aspirate sent and will be pending.
-
Dobbhoff tube will be placed: Continue tube feedings
-
Monitor blood sugars on high-dose of steroids
Insulin sliding scale
-
DVT prophylaxis subcu Lovenox
PPI for GI prophylaxis
-
Critical care statement: A total of 35 minutes of critical care time was provided for this patient today. This includes management of unstable vital signs, evaluation of the patient at bedside, reviewing the patient's pertinent medical records
including ventilator settings, arterial blood gases, radiographs, microbiology, laboratory evaluations and discussion with primary team, critical care nursing, and respiratory therapy.
Subjective Dataa
Subjective Data
Date of Service:
Date of Service: June 08, 2023
Chief Complaint: Kayak Maker Follow Up (Acute respiratory failure-hypercapnic due to severe COPD exacerbation)
Subjective:
Sedated
Mechanical ventilation
Chest tube in place on the left hemithorax
Review of Systems
General: Unobtainable - Sedation
Objective Data
Data Reviewed
Vital Signs / I&O / Oxygen:
Vital Signs
Temp Pulse Resp BP Pulse Ox
99.3 F 75 21 88/58 96
06/08/23 07:47 06/08/23 10:00 06/08/23 10:00 06/08/23 10:00 06/08/23 10:00
Intake and Output
06/07/23 06/08/23 06/09/23
06:59 06:59 06:59
Intake Total 1200 / 1200 1173.8 / 1196.2 22.4 / 22.4
Output Total 169 / 169
Balance 1200 / 1200 1004.8 / 1027.2 22.4 / 22.4
SaO2 [P-A/C] 96
SaO2 96
Nasal Cannula flow liters per 6
minute
Physical Exam
General: Respiratory Distress (Severe on exam)
HEENT: Normocephalic and Other (ET tube in place without secretions)
Cardiovascular: S1-S2, JVD and Other (Tachycardic)
Respiratory: Wheeze (Expiratory bilaterally) and Chest Tube (Continues air leak)
GI: Soft and Non Distended
Neurology: Awake and Other (Moving 4 extremities, follows simple commands.)
Skin: Other (Cold extremities)
Labs/Micro/Reports
Lab Data
06/08/23 04:42
06/08/23 04:42
Laboratory Results
06/07/23 06/07/23 06/07/23
10:28 10:55 12:42
pH 7.15 L* Cancelled 7.38
pCO2 89 H* Cancelled 41 H
pO2 60 L Cancelled 81 L
HCO3 31.0 H Cancelled 24.3
O2 Delivery Level Cancelled Not Reportable
Microbiology
06/07/23 14:04 Tracheal Aspirate Gram Stain - Preliminary
06/05/23 13:22 Sputum Respiratory Culture - Final
06/05/23 13:22 Sputum Gram Stain - Final
--- NOTE | 2023-06-08 10:58 | W.PN.UPDATE ---
Update Note
Progress Note Update
was updated by Dr. Monahan 06/08/2023. He states that he is coming later to visit.
--- NOTE | 2023-06-08 11:54 | PTCARENOTE ---
Patient has been on wean since around 1100. Pt awake, following commands. Just mildly anxious with sedation off. Relaxing music playing in background. Chest tube increased to -[address] Monahan. Otherwise no changes at this time.
[2023-06-08 12:00] LABS: Glucose - Point of Care 130 mg/dl (70-99)
[2023-06-08 12:18] LABS: B.E. 1.7 mmol/L; HCO3 25.8 mmol/L (21-28); O2 Saturation % 98.6 % (94-98); PCO2 38 mmHg (32-35); PO2 93 mmHg (83-108); pH 7.44 (7.35-7.45)
--- NOTE | 2023-06-08 13:31 | PTCARENOTE ---
pt extubated without difficulty to nasal cannula. voice is hoarse, thrush noted on tongue. pt reports recent amoxicillin for dental procedure as outpatient. Dr Monahan aware. Family at bedside and updated.
[2023-06-08 17:26] LABS: Glucose - Point of Care 116 mg/dl (70-99)
[2023-06-08] MEDS: LOVENOX 40 MG SC (18:00)
[2023-06-08] MEDS: MYCOSTATIN ORAL SUSPENSION 5 ML PO ×2 (18:01→21:40)
[2023-06-08] MEDS: DILAUDID 0.25 MG IV (19:49)
[2023-06-08] MEDS: PULMICORT 0.5 MG INH (20:18)
[2023-06-08] MEDS: PRAVACHOL 20 MG TUBE (21:41)
[2023-06-08] MEDS: SINGULAIR 10 MG TUBE (21:41)
--- NOTE | 2023-06-08 21:47 | PTCARENOTE ---
Addendum entered by Vivian Orellana RN 06/08/23 22:21:
O2 titrated down to 4L, pulse ox mid 90s.
Original Note:
Initial assessment as documented. At approx 21:30, pt with increased SOB/WOB after repositioning, pulse ox low 80s, requiring increased O2. Pt previously on 2L NC, increased to 6L NC + NRB. Placed on midflow NC at this time, 10L. Safe environment
maintained, call marina within reach, pt repositioned self.
[2023-06-08 22:03] LABS: Glucose - Point of Care 93 mg/dl (70-99)
[2023-06-09] VITALS (18 sets, daily range): BP systolic 111–162; BP diastolic 57–87; BMI 18.6
[2023-06-09] MEDS: DILAUDID 0.25 MG IV ×4 (01:29→19:33)
[2023-06-09] MEDS: TYLENOL 650 MG PO ×2 (04:16→21:40)
[2023-06-09 04:39] LABS: Hematocrit 33.2 % (37.0-47.0); Mean Corp Hgb Conc. 33.1 g/dL (33.0-37.0); Mean Corpuscular Hgb 31.8 pg (27.0-31.0); Mean Platelet Volume 12.1 fL (7.4-10.4); Platelet Count 273 10^3/uL (130-400); Red Blood Cell Count 3.46 10^6/uL (4.20-5.40); Red Cell Dist. Width 13.3 % (11.5-14.5); White Blood Cell Count 14.9 10^3/uL (4.8-10.8)
--- NOTE | 2023-06-09 04:43 | PTCARENOTE ---
Pt now on 2L NC, tolerating, pulse ox 95%, denies SOB. AM labs pending.
[2023-06-09 04:44] LABS: INR 0.95; PT 12.8 Sec (11.4-14.6)
[2023-06-09 04:45] LABS: APTT 25.1 Sec (23.4-35.0)
[2023-06-09 04:50] LABS: Blood Urea Nitrogen 23 mg/dl (7-17); Calcium 8.2 mg/dl (8.4-10.2); Carbon Dioxide 27 mmol/L (22-30); Chloride 103 mmol/L (98-107); Estimated Creatinine Clearance 48 ml/min; Glucose 130 mg/dl (70-99); Potassium 4.9 mmol/L (3.5-5.1); Sodium 134 mmol/L (135-145); eGFR > 60.00
[2023-06-09] MEDS: SYNTHROID 50 MCG PO (06:09)
[2023-06-09] MEDS: DUONEB 3 ML INH ×4 (07:35→19:13)
[2023-06-09] MEDS: PULMICORT 0.5 MG INH ×2 (07:35→19:13)
[2023-06-09] MEDS: NSS (PRESERVATIVE FREE) 10 ML IV (08:01)
[2023-06-09] MEDS: MYCOSTATIN ORAL SUSPENSION 5 ML PO ×4 (08:02→21:40)
[2023-06-09] MEDS: PROTONIX IV 40 MG IV (08:02)
[2023-06-09] MEDS: ZITHROMAX 250 MG TUBE (08:02)
[2023-06-09] MEDS: PEPCID 20 MG PO (08:02)
[2023-06-09] MEDS: DECADRON 4 MG IV ×2 (08:03→14:52)
[2023-06-09 08:19] LABS: Glucose - Point of Care 104 mg/dl (70-99)
--- NOTE | 2023-06-09 08:45 | PTCARENOTE ---
Rec'd pt at 0700. Pt AAOx3, follows commands, CORDOBA. Monitor SR with occas PVCs. Lungs dim, increased WOB. +orthopnea/LAMBERT. Pox 93-95% on 2LNC. Left chest tube in place, dressing C/D/I, no crepitus. +1 air leak. Serosang drainage to atrium. +BS, abd
soft/nt. Incont yellow urine, purewick in place.
--- NOTE | 2023-06-09 09:32 | W.PN.HOSP.TC ---
Today's Communication/Plan
-
see A/P
Assessment / Plan
Assessment / Plan
HPI: Patient is a 77y F with PMH significant for COPD and hypertension who presents to ED complaining of SOB.
A/P:
# Acute hypercapnic respiratory failure on admission due to severe COPD exacerbation
s/p Emergent intubation in the ICU 06/07, Extubated 06/08
GI ppx with IV Protonix (instead of STRATIGRAPHY TEACHER pepcid)
Cont IV Decadron, DuoNeb, Azithromycin for COPD
Mobility Specialist/pulm on board
# Spontaneous secondary pneumothorax on the left following intubation
Status post emergent chest tube placement 06/07/2023
Mobility Specialist/Pulm on board to manage chets tube
# Likely compensated shock with positive pressure ventilation and sedation S/E, resolved
Off Levophed
# Mild hyponatremia
# Mild leucocytosis likely reactive
# Benign Hypertension
BP now stable, STRATIGRAPHY TEACHER Norvasc and Lisinopril not resumed yet
Off Levophed support
# Hypothyroidism, Stable.�
Continue T4 supplementation.
DVT Prophylaxis: Lovenox SQ
Code Status:�Full as discussed with the patient
called to update, call not answered
Anticipated Discharge: > 48 hours
Subjective/Interval History
-
Date of Service: June 09, 2023
Objective Data
-
Labs:
Laboratory Results
06/09/23
04:12
WBC 14.9 H
Hgb 11.0 L
Hct 33.2 L
Plt Count 273
PT 12.8
INR 0.95
APTT 25.1
Sodium 134 L
Potassium 4.9
Chloride 103
Carbon Dioxide 27
BUN 23 H
Creatinine 0.7
Glucose 130 H
Calcium 8.2 L
Vital Signs:
Vital Signs
Temp Pulse Resp BP Pulse Ox
36.6 C 102 11 139/76 96
06/09/23 08:00 06/09/23 08:00 06/09/23 08:00 06/09/23 08:00 06/09/23 08:00
I&O
06/08/23 06/09/23 06/10/23
06:59 06:59 06:59
Intake Total 1173.8 / 1196.2 764.3 / 764.3
Output Total 169 / 169 1359 / 1359
Balance 1004.8 / 1027.2 -594.7 / -594.7
Review of Systems
-
All other systems: Reviewed and negative
Physical Exam
-
General: Well Developed, Comfortable, Conversant and Appears Chronically Ill
HEENT: Oxygen (on 2L NC)
Respiratory: Chest Tubes (L side)
Cardiac: Regular Rhythm and S1/S2
GI: Soft, Nontender and Nondistended
Musculoskeletal: No Edema
Neuro: Awake
Psych: Calm and Intact Judgement/Insight
Data Reviewed
-
Diagnostic Radiology: Image personally visualized and interpreted and Report Reviewed by me
Labs: Labs Reviewed by me
--- NOTE | 2023-06-09 10:50 | W.PN.INTV ---
Today's Communication / Plan
Recommendations
Continue IV steroids
Nebulizer
Daily x-ray
Follow chest tube to suction. Eventual transition to waterseal in the next 24 to 48 hours. airleak improved.
Assessment
-
77-year-old woman with history of COPD, initially admitted with acute exacerbation of COPD. Emergently transferred to ICU on 06/07/2023 after developing acute onset shortness of breath. Found to have a left-sided pneumothorax. Chest tube was
placed. Patient was intubated for hypercapnic respiratory failure.
Acute hypercapnic respiratory failure due to severe exacerbation of COPD-transfer from floors 06/07/2023
Emergently intubated at the bedside in the ICU-06/07/2023
CT chest this admission: Severe emphysema. No pneumonia.
Spontaneous secondary pneumothorax on the left
Status post emergent chest tube placement 06/07/2023
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
Severe COPD (post-BD FEV1: 44%, DLco: 27% via PFT from 05/2018), on nocturnal and exertional home O2 at 2LPM, on trelegy, albuterol HFA/nebs, montelukast
Follows with Dr. Ahmadi
HTN
Hypothyroidism
HLD
Assessment and plan:
Critically ill: Emergently intubated due to worsening shortness of breath-initially admitted for acute exacerbation of COPD.06/07/2023
Emergently intubated: I was at the bedside during intubation: Tooth #7 was placed-#8 tube too large for her.
-
Secondary spontaneous pneumothorax on the left.
Status post bedside chest tube placement 06/07/2023.
Decrease suction to - 02/17/20212023.
Chest x-ray 06/09/2023: Persistent 5 to 10% basilar pneumothorax. Stable since yesterday.
Airleak improved, intermittently present with tidal respirations.
No ready for waterseal yet. Will consider in the next 24 hours.
Recommend conservative management. If airleak stops during the last several days and able to discontinue chest tube. I recommend outpatient CT surgery evaluation for VATS as the rate of recurrence is very high. If there is persistent air leak
with conservative management may need to consult while in the hospital.
-
Extubated 06/08/2023.
Tolerating well
Continue oxygen supplementation to maintain pulse ox above 90%.
-
Hemodynamically stable.
-
No evidence for infection at this point.
Tracheal aspirate with normal respiratory danielle.
-
Continues to report dyspnea, overall improved.
Decreased breath sounds bilaterally.
Continue dexamethasone 4 mg IV every 12 hours.
Nebulizers-Pulmicort/DuoNebs.
Azithromycin for anti-inflammatory properties
Recent CT chest without pneumonia. Normal respiratory danielle 06/05/2023
Tracheal aspirate with normal respiratory danielle.
-
Tolerating diet
-
Monitor blood sugars on high-dose of steroids
Insulin sliding scale
-
DVT prophylaxis subcu Lovenox
PPI for GI prophylaxis
Transfer to telemetry. Critical care team will sign off.
Pulmonary will follow
Subjective Dataa
Subjective Data
Date of Service:
Date of Service: June 09, 2023
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
Subjective:
No new complaints.
Chest tube continues to have air leak.
Objective Data
Data Reviewed
Vital Signs / I&O / Oxygen:
Vital Signs
Temp Pulse Resp BP Pulse Ox
98 F 102 11 139/76 96
06/09/23 08:00 06/09/23 08:00 06/09/23 08:00 06/09/23 08:00 06/09/23 08:00
Intake and Output
06/08/23 06/09/23 06/10/23
06:59 06:59 06:59
Intake Total 1173.8 / 1196.2 764.3 / 764.3
Output Total 169 / 169 1359 / 1359
Balance 1004.8 / 1027.2 -594.7 / -594.7
SaO2 [CPAP/PSV] 96
SaO2 [P-A/C] 96
SaO2 96
Nasal Cannula flow liters per 2
minute
Physical Exam
General: Respiratory Distress (Severe on exam)
HEENT: Normocephalic and Other (ET tube in place without secretions)
Cardiovascular: S1-S2, JVD and Other (Tachycardic)
Respiratory: Wheeze (Expiratory bilaterally) and Chest Tube (Continues air leak)
GI: Soft and Non Distended
Neurology: Awake and Other (Moving 4 extremities, follows simple commands.)
Skin: Other (Cold extremities)
Labs/Micro/Reports
Lab Data
06/09/23 04:12
06/09/23 04:12
Laboratory Results
06/08/23 06/09/23
11:59 04:12
PT 12.8
INR 0.95
APTT 25.1
pH 7.44
pCO2 38 H
pO2 93
HCO3 25.8
O2 Delivery Level Not Reportable
Microbiology
06/07/23 14:04 Tracheal Aspirate Respiratory Culture - Preliminary
Usual Respiratory Danielle
06/07/23 14:04 Tracheal Aspirate Gram Stain - Preliminary
[2023-06-09 12:00] LABS: Glucose - Point of Care 112 mg/dl (70-99)
--- NOTE | 2023-06-09 12:19 | PTCARENOTE ---
chest tube suction changed to -10cm by Dr. Monahan. Assessment otherwise unchanged. Family at bedside, updated. Pt tele status
--- NOTE | 2023-06-09 13:30 | PTCARENOTE ---
~1245 pt c/o some pain at chest tube site, PRN Dilaudid given. ~1300 pt with increased WOB, pox down to 87%. Pt stated that she couldn't catch her breath. O2 increased to 6L, pox up to 96%. Chest tube assessed, no crepitus, device connected
appropriately. Air leak remains +1. Dr. Monahan notified, suction changed back to -20cm, stat PCXR done. ~1320 pt stated that her breathing was feeling better. Family remains at bedside.
--- NOTE | 2023-06-09 14:40 | W.PN.UPDATE ---
Update Note
Progress Note Update
Developed acute onset shortness of breath.
Lung exam with diminished breath sounds bilaterally.
Repeat chest x-ray with worsening pneumothorax.
Patient tachycardic but cooperative. Mild chest discomfort to palpation.
EKG appears regular.
Will obtain troponins
Suction on chest tube was increased to -30, now I can see a constant air leak. Perhaps with decreased suction there was recurrent pneumothorax.
Will continue to monitor in the ICU.
Family at the bedside.
--- NOTE | 2023-06-09 15:05 | PTCARENOTE ---
Pt with second episode of resp distress, HR 130-150's, pox 86% on 4LNC. Increased WOB, lungs dim throughout/tight. Pt stating she can't catch her breath. Dr. Monahan notified. Breathing treatment given, O2 increased to 10L midflow. MD at bedside to
assess pt. Suction on chest tube increased to -30cm by MD. Troponin drawn and sent. Family at bedside, pt states that her breathing is starting to feel better at this time.
[2023-06-09 15:26] LABS: Troponin I < 0.012 ng/ml
[2023-06-09 16:21] LABS: Glucose - Point of Care 149 mg/dl (70-99)
[2023-06-09] MEDS: LOVENOX 40 MG SC (17:33)
[2023-06-09] MEDS: PRAVACHOL 20 MG PO (21:40)
[2023-06-09] MEDS: SINGULAIR 10 MG TUBE (21:40)
[2023-06-10] VITALS (11 sets, daily range): BP systolic 101–157; BP diastolic 56–104; BMI 18.6
[2023-06-10] MEDS: DECADRON 4 MG IV ×3 (00:17→15:54)
[2023-06-10 03:40] LABS: Hematocrit 33.5 % (37.0-47.0); Hemoglobin 11.1 g/dL (12.0-16.0); Mean Corp Hgb Conc. 33.1 g/dL (33.0-37.0); Mean Corpuscular Hgb 31.5 pg (27.0-31.0); Mean Corpuscular Volume 95.2 fL (81.0-99.0); Mean Platelet Volume 11.4 fL (7.4-10.4); Platelet Count 262 10^3/uL (130-400); Red Blood Cell Count 3.52 10^6/uL (4.20-5.40); Red Cell Dist. Width 13.3 % (11.5-14.5); White Blood Cell Count 14.7 10^3/uL (4.8-10.8)
[2023-06-10 04:33] LABS: Blood Urea Nitrogen 27 mg/dl (7-17); Calcium 8.6 mg/dl (8.4-10.2); Carbon Dioxide 30 mmol/L (22-30); Chloride 102 mmol/L (98-107); Estimated Creatinine Clearance 55 ml/min; Glucose 135 mg/dl (70-99); Sodium 135 mmol/L (135-145); eGFR > 60.00
[2023-06-10] MEDS: SYNTHROID 50 MCG PO (06:10)
[2023-06-10] MEDS: DILAUDID 0.25 MG IV ×2 (06:11→11:21)
--- NOTE | 2023-06-10 06:31 | PTCARENOTE ---
PW catheter in place, pt voided 750ml this shift in PW. Pt placed on bedpan with attempt to have BM, voided 500ml--no BM. Continued stress incontinence with each cough immediately after voiding. Bladder scanned for 91ml. Continued with stress
incontinence, straight cath = 450ml.
[2023-06-10] MEDS: DUONEB 3 ML INH ×4 (07:30→19:36)
[2023-06-10] MEDS: PULMICORT 0.5 MG INH ×2 (07:31→19:36)
[2023-06-10 07:38] LABS: Glucose - Point of Care 129 mg/dl (70-99)
--- NOTE | 2023-06-10 07:44 | W.PN.HOSP.TC ---
Today's Communication/Plan
-
see A/P
Assessment / Plan
Assessment / Plan
HPI: Patient is a 77y F with PMH significant for COPD and hypertension who presents to ED complaining of SOB.
A/P:
# Acute hypercapnic respiratory failure on admission due to severe COPD exacerbation
s/p Emergent intubation in the ICU 06/07, Extubated 06/08
GI ppx with MUSIC EDUCATION ADJUNCT PROFESSOR pepcid and added IV Protonix
Cont IV Decadron, DuoNeb, Azithromycin for COPD
Economic Analysis Director/pulm on board
# Spontaneous secondary pneumothorax on the left following intubation
Status post emergent chest tube placement 06/07/2023
Per Pulm, likely constant air leak, increased chest tube suction
# Likely compensated shock with positive pressure ventilation and sedation S/E, resolved
Off Levophed
# Mild hyponatremia, resolved
# Mild leucocytosis likely reactive, improving
# Benign Hypertension
BP stable off Levophed support
MUSIC EDUCATION ADJUNCT PROFESSOR Norvasc and Lisinopril NOT resumed yet
# Hypothyroidism, Stable.�
Continue T4 supplementation.
DVT Prophylaxis: Lovenox SQ
Code Status:�Full as discussed with the patient
Anticipated Discharge: > 48 hours
Subjective/Interval History
-
Date of Service: June 10, 2023
Objective Data
-
Labs:
Laboratory Results
06/10/23
03:29
WBC 14.7 H
Hgb 11.1 L
Hct 33.5 L
Plt Count 262
Sodium 135
Potassium 5.0
Chloride 102
Carbon Dioxide 30
BUN 27 H
Creatinine 0.6
Glucose 135 H
Calcium 8.6
Vital Signs:
Vital Signs
Temp Pulse Resp BP Pulse Ox
36.6 C 116 24 142/94 96
06/10/23 07:34 01/22/24 07:32 06/10/23 07:32 06/10/23 06:00 06/10/23 07:32
I&O
06/09/23 06/10/23 06/11/23
06:59 06:59 06:59
Intake Total 764.3 / 764.3 240 / 240
Output Total 1359 / 1359 2180 / 2180
Balance -594.7 / -594.7 -1940 / -194
Review of Systems
-
All other systems: Reviewed and negative
Physical Exam
-
General: Well Developed, Comfortable, Conversant and Appears Chronically Ill
HEENT: Oxygen (2L -> 7L NC)
Respiratory: Chest Tubes (L side)
Cardiac: Regular Rhythm and S1/S2
GI: Soft, Nontender and Nondistended
Musculoskeletal: No Edema
Neuro: Awake
Psych: Calm and Intact Judgement/Insight
Data Reviewed
-
Diagnostic Radiology: Image personally visualized and interpreted and Report Reviewed by me
Labs: Labs Reviewed by me
[2023-06-10] MEDS: ZESTRIL 30 MG PO (07:48)
[2023-06-10] MEDS: MYCOSTATIN ORAL SUSPENSION 5 ML PO ×4 (07:48→21:46)
[2023-06-10] MEDS: NORVASC 10 MG PO (07:48)
[2023-06-10] MEDS: PEPCID 20 MG PO (07:48)
[2023-06-10] MEDS: TYLENOL 650 MG PO ×3 (07:49→22:07)
[2023-06-10] MEDS: ZITHROMAX 250 MG PO (07:59)
--- NOTE | 2023-06-10 09:07 | W.PN.INTV ---
Today's Communication / Plan
Recommendations
Continue IV steroids
Nebulizer
Daily x-ray
Follow chest tube to suction. Eventual transition to waterseal in the next 24 hours. airleak continues to improve. Hopefully can remove by -Saturday.
Assessment
-
77-year-old woman with history of COPD, initially admitted with acute exacerbation of COPD. Emergently transferred to ICU on 06/07/2023 after developing acute onset shortness of breath. Found to have a left-sided pneumothorax. Chest tube was
placed. Patient was intubated for hypercapnic respiratory failure.
Acute hypercapnic respiratory failure due to severe exacerbation of COPD-transfer from floors 06/07/2023
Emergently intubated at the bedside in the ICU-06/07/2023 - extubated 06/08/2023
CT chest this admission: Severe emphysema. No pneumonia.
Spontaneous secondary pneumothorax on the left
Status post emergent chest tube placement 06/07/2023
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
Severe COPD (post-BD FEV1: 44%, DLco: 27% via PFT from 05/2018), on nocturnal and exertional home O2 at 2LPM, on trelegy, albuterol HFA/nebs, montelukast
Follows with Dr. Ahmadi
HTN
Hypothyroidism
HLD
Assessment and plan:
On -, pt was was emergently intubated due to worsening shortness of breath-initially admitted for acute exacerbation of COPD.06/07/2023
Pt extubated the next day
-
Secondary spontaneous pneumothorax on the left
Status post bedside chest tube placement 06/07/2023.
Chest x-ray 06/09/2023: Persistent 5 to 10% basilar pneumothorax.
Air leak continues to improve --> reduced suction to -[id number]. If PTX is stable tomorrow AM, tehn will clamp chest tube. IF PTX stable for >6 hrs then will remove chest tube. If air leak persists then she will need to be evaluated by thoracic
surgery for pleurodesis
Continue high-dose oxygen to help resorb PTX
-
Maintain MAP>65
-
No evidence for infection at this point.
Tracheal aspirate with normal respiratory danielle iwona (likely contaminant and not pathological)
-
Continues to report dyspnea, overall improved.
Decreased breath sounds bilaterally.
Continue dexamethasone 4 mg IV every 8 hours.
Nebulizers-Pulmicort/DuoNebs.
Azithromycin for anti-inflammatory properties
Recent CT chest without pneumonia. Normal respiratory danielle 06/05/2023
Tracheal aspirate with normal respiratory danielle.
-
Tolerating diet
-
Monitor blood sugars on high-dose of steroids
Insulin sliding scale
-
DVT prophylaxis subcu Lovenox
PPI for GI prophylaxis
Continue telemetry level of care.
Pulmonary will follow
(Patient was seen and examined on 06/10/2023)
Subjective Dataa
Subjective Data
Date of Service:
Date of Service: June 10, 2023
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
Subjective:
Pt seen this AM. Doing well, but having hard time taking in deep breath. She had no issues overnight. Chest tube at negative suction at -[id number] - no air leak seen at bedside. Pt denies chest pain, CHIU, abd pain, N/V/f/c.
Review of Systems
General: Other (negative unless mentioned above)
Objective Data
Data Reviewed
Vital Signs / I&O / Oxygen:
Vital Signs
Temp Pulse Resp BP Pulse Ox
97.8 F 116 24 142/94 96
06/10/23 07:34 06/10/23 07:32 06/10/23 07:32 06/10/23 06:00 06/10/23 07:32
Intake and Output
01/06/10/23 06/11/23
06:59 06:59 06:59
Intake Total 764.3 / 764.3 240 / 240
Output Total 1359 / 1359 2180 / 2180
Balance -594.7 / -594.7 -194 / -1939
SaO2 [CPAP/PSV] 96
SaO2 [P-A/C] 96
SaO2 96
Nasal Cannula flow liters per 8
minute
Physical Exam
General: Comfortable and Chills (negative)
HEENT: Normocephalic and Anicteric
Cardiovascular: S1-S2 and Peripheral Edema (negative)
Respiratory: Wheeze (minimal during end-expiration), Crackles (negative), Rhonchi (negative), Accessory Resp Muscle Use (occasionally and worsened with coughing) and Chest Tube (Continues air leak)
GI: Soft, Non Distended and Non Tender
Neurology: AO x 3
Skin: Warm, Dry and Jaundice (negative)
Labs/Micro/Reports
Lab Data
06/10/23 03:29
06/10/23 03:29
Microbiology
06/07/23 14:04 Tracheal Aspirate Respiratory Culture - Final
Iwona albicans
06/07/23 14:04 Tracheal Aspirate Gram Stain - Final
[2023-06-10] MEDS: ATIVAN 0.5 MG PO (11:00)
--- NOTE | 2023-06-10 11:09 | VATNOTE ---
06/10 Evaluated need for picc- primary RN request to keep another day d/t potential for reintubation.
[2023-06-10] MEDS: PROTONIX IV IV (12:08)
[2023-06-10] MEDS: NSS (PRESERVATIVE FREE) IV (12:08)
--- NOTE | 2023-06-10 12:15 | PTCARENOTE ---
Pt has c/o t/o morning of having some difficulty with breathing. Slightly anxious, does well with pursed lip breathing, but sats mid 80s on 6l midflow, oxygen increased to 8lmidflow. Dr Mckeon in to see pt. Chest tube without airleak, but air
leak has been intermittent at [address] Mckeon adjusted suction to -20. Ativan given and shortly after, pt reported not being able to urinate and feeling pressure. Bladder scan for [address] Straight cath
without difficulty for 1liter of clear yellow urine, pt reported relief. Now with soreness at chest tube site. Dilaudid given as ordered as it is early for tylenol. Family in to see pt and updated. Otherwise no changes from am assessment.
[2023-06-10] MEDS: SENOKOT-S 1 TABLET PO (13:28)
--- NOTE | 2023-06-10 16:11 | PTCARENOTE ---
Pt assisted oob to chair with 1 person assist. Slowly with break. Pt tolerated well. No desats noted. Pt does have some increased wob, but settles quickly. Pt does have frequent cough that causes her to be sob. Otherwise no changes. Family
remains at bedside.
[2023-06-10] MEDS: TESSALON PERLES 200 MG PO ×2 (16:59→20:09)
[2023-06-10] MEDS: ROBITUSSIN 200 MG PO (16:59)
[2023-06-10] MEDS: LOVENOX 40 MG SC (17:04)
[2023-06-10] MEDS: MIRALAX 17 GRAMS PO (17:43)
--- NOTE | 2023-06-10 20:00 | PTCARENOTE ---
Received patient AAOx3, family at bedside, following commands. Normal sinus/sinus tach, 90s-100s. BP stable, 150s/60s. Palpable radial and pedal pulses bilaterally. On 8L midflow, lung sounds decreased throughout. Dyspneic on exertion and at rest,
shallow and pursed lip breathing. Left chest tube, set to -20 suction, no air leak, serosanguineous drainage. Purewick in place, bedside commode to void. Heel protectors CDI, chest tube dressing CDI. PICC and PIVs WNL. Hourly rounding and patient
safety checks ongoing.
[2023-06-10] MEDS: MUCINEX 1200 MG PO (20:09)
[2023-06-10] MEDS: SINGULAIR 10 MG PO (21:46)
[2023-06-10] MEDS: PRAVACHOL 20 MG PO (21:46)
[2023-06-11] MEDS: DECADRON 4 MG IV ×3 (00:12→21:11)
[2023-06-11 05:14] VITALS: BP 136/65
--- NOTE | 2023-06-11 05:15 | PTCARENOTE ---
Gave patient tylenol earlier in the shift for pain at chest tube site. Patient voided, bladder scanned for >600 around 2230, straight cathed for 450 mls. Otherwise patient assessment unchanged from previous, labs sent, sleeping comfortably in bed.
Hourly rounding and patient safety checks ongoing.
[2023-06-11 05:26] LABS: Hematocrit 33.7 % (37.0-47.0); Hemoglobin 11.2 g/dL (12.0-16.0); Mean Corp Hgb Conc. 33.2 g/dL (33.0-37.0); Mean Corpuscular Hgb 32.3 pg (27.0-31.0); Mean Corpuscular Volume 97.1 fL (81.0-99.0); Mean Platelet Volume 11.7 fL (7.4-10.4); Platelet Count 287 10^3/uL (130-400); Red Blood Cell Count 3.47 10^6/uL (4.20-5.40); Red Cell Dist. Width 12.8 % (11.5-14.5); White Blood Cell Count 13.8 10^3/uL (4.8-10.8)
[2023-06-11 05:45] LABS: Blood Urea Nitrogen 30 mg/dl (7-17); Calcium 9.3 mg/dl (8.4-10.2); Carbon Dioxide 31 mmol/L (22-30); Chloride 98 mmol/L (98-107); Estimated Creatinine Clearance 55 ml/min; Glucose 143 mg/dl (70-99); Potassium 4.8 mmol/L (3.5-5.1); Sodium 135 mmol/L (135-145); eGFR > 60.00
[2023-06-11] MEDS: SYNTHROID 50 MCG PO (06:03)
[2023-06-11] MEDS: TYLENOL 650 MG PO ×3 (06:30→21:10)
[2023-06-11] MEDS: DUONEB 3 ML INH (07:24)
[2023-06-11] MEDS: PULMICORT 0.5 MG INH ×2 (07:24→19:50)
[2023-06-11] MEDS: MUCINEX 1200 MG PO ×2 (08:42→21:12)
[2023-06-11] MEDS: MYCOSTATIN ORAL SUSPENSION 5 ML PO ×4 (08:42→21:11)
[2023-06-11] MEDS: ZESTRIL 30 MG PO (08:43)
[2023-06-11 08:44] VITALS: BP 118/67
[2023-06-11] MEDS: TESSALON PERLES 200 MG PO ×2 (08:45→21:11)
[2023-06-11] MEDS: NORVASC 10 MG PO (08:46)
[2023-06-11] MEDS: ZITHROMAX 250 MG PO (08:46)
[2023-06-11] MEDS: MIRALAX 17 GRAMS PO (08:46)
[2023-06-11] MEDS: PROTONIX IV 40 MG IV (08:46)
[2023-06-11] MEDS: NSS (PRESERVATIVE FREE) 10 ML IV (08:46)
[2023-06-11] MEDS: PEPCID 20 MG PO (09:01)
--- NOTE | 2023-06-11 09:22 | W.PN.HOSP.TC ---
Today's Communication/Plan
-
see A/P
Assessment / Plan
Assessment / Plan
HPI: 77y F with PMH significant for COPD and hypertension who presented to ED complaining of SOB.
A/P:
# Acute hypercapnic respiratory failure on admission due to severe COPD exacerbation
s/p Emergent intubation in the ICU 06/07, Extubated 06/08
GI ppx with METER MECHANIC Pepcid and added IV Protonix
Cont IV Decadron, DuoNeb, Azithromycin for COPD
Air Twist Operator/pulm on board
# Spontaneous secondary pneumothorax on the left following intubation
Status post emergent chest tube placement 06/07/2023
Per Pulm, likely constant air leak, increased chest tube suction
# Likely compensated shock with positive pressure ventilation and sedation S/E, resolved
Off Levophed
# Mild hyponatremia, resolved
# Mild leucocytosis likely reactive, improving
# Benign Hypertension
BP stable off Levophed support
Resumed METER MECHANIC Norvasc and Lisinopril
# Hypothyroidism, Stable.�
Continue T4 supplementation.
DVT Prophylaxis: Lovenox SQ
Code Status:�Full as discussed with the patient
Anticipated Discharge: > 48 hours
Subjective/Interval History
-
Date of Service: June 11, 2023
Objective Data
-
Labs:
Laboratory Results
06/11/23
05:11
WBC 13.8 H
Hgb 11.2 L
Hct 33.7 L
Plt Count 287
Sodium 135
Potassium 4.8
Chloride 98
Carbon Dioxide 31 H
BUN 30 H
Creatinine 0.6
Glucose 143 H
Calcium 9.3
Vital Signs:
Vital Signs
Temp Pulse Resp BP Pulse Ox
36.9 C 107 24 118/67 96
06/11/23 08:06 06/11/23 08:46 06/11/23 07:28 06/11/23 08:46 06/11/23 07:28
I&O
06/10/23 06/11/23 06/12/23
06:59 06:59 06:59
Intake Total 240 / 240 1240 / 1240 240 / 240
Output Total 2180 / 2180 2200 / 2200 450 / 450
Balance -1940 / -1940 -960 / -960 -210 / -210
Review of Systems
-
All other systems: Reviewed and negative
Physical Exam
-
General: Well Developed, Comfortable, Conversant and Appears Chronically Ill
HEENT: Oxygen (2L -> 6L NC)
Respiratory: Chest Tubes (L side)
Cardiac: Regular Rhythm and S1/S2
GI: Soft, Nontender and Nondistended
Musculoskeletal: No Edema
Neuro: Awake
Psych: Calm and Intact Judgement/Insight
Data Reviewed
-
Diagnostic Radiology: Image personally visualized and interpreted and Report Reviewed by me
Labs: Labs Reviewed by me
[2023-06-11 09:50] VITALS: BP 118/47
--- NOTE | 2023-06-11 09:55 | W.PN.PUL3 ---
Today's Communication / Plan
-
Continue IV steroids
Nebulizer
Daily x-ray
Keep chest tube to negative suction.� Eventual transition to waterseal once air leak is resolved.
Assessment
-
77-year-old woman with history of COPD, initially admitted with acute exacerbation of COPD.� Emergently transferred to ICU on 06/07/2023 after developing acute onset shortness of breath.� Found to have a left-sided pneumothorax.� Chest tube was
placed.� Patient was intubated for hypercapnic respiratory failure.
Acute hypercapnic respiratory failure due to severe exacerbation of COPD-transfer from floors 06/07/2023
Emergently intubated at the bedside in the ICU-06/07/2023 - extubated 06/08/2023
CT chest this admission: Severe emphysema.� No pneumonia.
Spontaneous secondary pneumothorax on the left
Status post emergent chest tube placement 06/07/2023
Conditions TRIP RIDER:
Severe COPD (post-BD FEV1: 44%, DLco: 27% via PFT from 05/2018), on nocturnal and exertional home O2 at 2LPM, on trelegy, albuterol HFA/nebs, montelukast
Follows with Dr. Ahmadi
HTN
Hypothyroidism
HLD
Assessment and plan:
On -, pt was was emergently intubated due to worsening shortness of breath-initially admitted for acute exacerbation of COPD.06/07/2023
Pt extubated the next day
-
Secondary spontaneous pneumothorax on the left
s/p bedside chest tube placement 06/07/2023.
Chest x-ray 06/09/2023: Persistent 5 to 10% basilar pneumothorax.
Air leak continues to improve -->�reduced suction to -[id number].� Due to persistent air leak, keep chest tube to negative suction and continue to monitor. �If air leak persists by tomorrow she will need to be evaluated by thoracic surgery for
pleurodesis
Continue high-dose oxygen to help resorb PTX
-
Maintain MAP>65
-
No evidence for infection at this point.
Tracheal aspirate with normal respiratory danielle� iwona (likely contaminant and not pathological)
-
Continues to report dyspnea, overall improved.
Decreased breath sounds bilaterally.
Continue dexamethasone� 4 mg IV every 8 hours.�
Nebulizers-Pulmicort/DuoNebs.
Azithromycin for anti-inflammatory properties
Recent CT chest without pneumonia.� Normal respiratory danielle 06/05/2023
Tracheal aspirate with normal respiratory danielle.
-
Tolerating diet
-
Monitor blood sugars on high-dose of steroids
Insulin sliding scale
-
DVT prophylaxis subcu Lovenox
PPI for GI prophylaxis
Continue telemetry level of care.
Pulmonary will follow
(Patient was seen and examined on 06/11/2023)
Subjective Data
-
Date of Service:
Date of Service: June 11, 2023
Chief Complaint: Pulmonary Follow Up
Subjective:
Looks well this AM. Straight cath overnight and again yesterday. There is still a level 1 air leak seen, with stable left basilar pneumothorax.
Review of Systems
General: Other (Negative unless mentioned above)
Objective Data
Data Reviewed
Vital Signs / I&O / Oxygen:
Vital Signs
Temp Pulse Resp BP Pulse Ox
98.4 F 107 24 118/67 96
06/11/23 08:06 06/11/23 08:46 06/11/23 07:28 06/11/23 08:46 06/11/23 07:28
Intake and Output
06/10/23 06/11/23 06/12/23
06:59 06:59 06:59
Intake Total 240 / 240 1240 / 1240 240 / 240
Output Total 2180 / 2180 2200 / 2200 450 / 450
Balance -1940 / -1940 -960 / -960 -210 / -210
SaO2 [CPAP/PSV] 96
SaO2 [P-A/C] 96
SaO2 96
Nasal Cannula flow liters per 8
minute
Physical Exam
General: Respiratory Distress (Negative) and Comfortable
HEENT: Normocephalic and Moist Mucous Membranes
Cardiovascular: S1-S2, Murmur (n), JVD, Peripheral Edema (n) and Calf Tenderness (n)
Respiratory: Wheeze (trace), Rhonchi, Accessory Resp Muscle Use (Negative), Stridor (n), Chest Tube (Left hemithorax) and Other (Grossly diminished breath sounds)
GI: Soft, Non Distended and Non Tender
Neurology: AO x 3 and No Motor Deficits
Skin: Warm and Dry
Labs/Micro/Reports
Lab Data
06/11/23 05:11
06/11/23 05:11
Microbiology
06/07/23 14:04 Tracheal Aspirate Respiratory Culture - Final
Iwona albicans
06/07/23 14:04 Tracheal Aspirate Gram Stain - Final
--- NOTE | 2023-06-11 09:56 | PTCARENOTE ---
drowsy , pleasant , on 6L NC with sat of 100% , ST on monitor, L chest tube 20cm of suction , Lungs with exp wheezing , occasional productive cough , tolerating diet , voided on commode , post residual urine was 0 , labs noted
[2023-06-11] MEDS: ATROVENT NEBULES 0.5 MG INH ×3 (11:16→19:48)
[2023-06-11] MEDS: XOPENEX 1.25 MG INHALANT SOLUTION INH ×3 (11:16→19:53)
[2023-06-11 11:19] VITALS: BP 139/99
[2023-06-11] MEDS: FLOMAX 0.400000000000000022 MG PO (12:03)
[2023-06-11 14:34] LABS: Urine Albumin Negative (Neg - Trace); Urine Bilirubin Negative (Negative); Urine Character Clear (Clear); Urine Color Yellow; Urine Glucose Negative (Negative); Urine Ketone Negative (Negative); Urine Leukocyte Negative (Negative); Urine Nitrite Negative (Negative); Urine Occult Blood Negative (Negative); Urine Urobilinogen Negative (Neg - 1+)
[2023-06-11] MEDS: MUCOMYST 10% 4 ML INH (14:49)
[2023-06-11 15:18] VITALS: BP 111/56
--- NOTE | 2023-06-11 15:50 | CM ---
CM following re: discharge planning.
Reviewed pt's chart. Per chart review, pt requires 5L NC of O2. Patient is on continuos o2 2 liters at home. She has a concentrator and portable units. She has a nebulizer but it is old. She has a rollator that she uses when she gets tired.
PT/OT recommended home PT. Awaiting for updated PT/OT evaluations to determine a level of care at discharge.
Per CM note, pt is known to [facility]
D/C plan: home with anticipated [facility] and family support. family to transport at discharge.
CM will follow with discharge plan updates as hospitalization progresses
[2023-06-11 15:51] VITALS: BP 111/56
[2023-06-11] MEDS: LOVENOX 40 MG SC (17:12)
--- NOTE | 2023-06-11 18:04 | PTCARENOTE ---
no change in assessments , pt family at bedside
[2023-06-11] MEDS: MUCOMYST 10% 2 ML INH (19:53)
[2023-06-11] MEDS: SINGULAIR 10 MG PO (21:10)
[2023-06-11] MEDS: PRAVACHOL 20 MG PO (21:12)
--- NOTE | 2023-06-11 23:46 | PTCARENOTE ---
Cannot verify vitals from 1000, from previous shift. Received patient AAOx3, in bed, family at bedside. Gave tylenol for pain at chest tube site. Normal sinus/sinus tach, 80s-110s. BP stable. Palpable radial and pedal pulses bilaterally. 6 liters
midflow, increased to 12 liters when using bedside commode. Lung sounds diminished, expiratory wheeze noted. Left chest tube, dressing CDI. Serosanguineous fluid, set to -20 suction, air leak present. Commode to void. PICC WNL, PIVs WNL. Hourly
rounding and patient safety checks ongoing.
[2023-06-12] VITALS (10 sets, daily range): BP systolic 89–156; BP diastolic 50–104
[2023-06-12] MEDS: TYLENOL 650 MG PO ×3 (01:31→17:38)
[2023-06-12 04:43] LABS: Hematocrit 31.9 % (37.0-47.0); Hemoglobin 10.9 g/dL (12.0-16.0); Mean Corp Hgb Conc. 34.2 g/dL (33.0-37.0); Mean Corpuscular Hgb 32.5 pg (27.0-31.0); Mean Corpuscular Volume 95.2 fL (81.0-99.0); Mean Platelet Volume 11.5 fL (7.4-10.4); Platelet Count 294 10^3/uL (130-400); Red Blood Cell Count 3.35 10^6/uL (4.20-5.40); Red Cell Dist. Width 12.9 % (11.5-14.5); White Blood Cell Count 14.1 10^3/uL (4.8-10.8)
[2023-06-12 05:17] LABS: Blood Urea Nitrogen 29 mg/dl (7-17); Calcium 8.9 mg/dl (8.4-10.2); Carbon Dioxide 29 mmol/L (22-30); Chloride 99 mmol/L (98-107); Estimated Creatinine Clearance 55 ml/min; Glucose 129 mg/dl (70-99); Potassium 5.1 mmol/L (3.5-5.1); Sodium 131 mmol/L (135-145); eGFR > 60.00
[2023-06-12] MEDS: SYNTHROID 50 MCG PO (06:37)
--- NOTE | 2023-06-12 06:56 | PTCARENOTE ---
Assessed patient at bedside change of shift. Patient in respiratory distress. HR in 160s, use of accessory muscles. RT to bedside and Stat CXR ordered. Patient is AAOx3, denies pain, feels very anxious. awaiting cxr
[2023-06-12] MEDS: ATROVENT NEBULES 0.5 MG INH ×4 (06:59→19:21)
[2023-06-12] MEDS: PULMICORT 0.5 MG INH ×2 (06:59→19:21)
[2023-06-12] MEDS: MUCOMYST 10% 2 ML INH ×2 (07:26→19:22)
[2023-06-12] MEDS: XOPENEX 1.25 MG INHALANT SOLUTION INH ×4 (07:26→19:21)
--- NOTE | 2023-06-12 07:34 | W.PN.HOSP.TC ---
Today's Communication/Plan
-
see A/P
Assessment / Plan
Assessment / Plan
HPI: 77y F with PMH significant for COPD and hypertension who presented to ED complaining of SOB.
A/P:
# Acute hypercapnic respiratory failure on admission due to severe COPD exacerbation
s/p Emergent intubation in the ICU 06/07, Extubated 06/08
GI ppx with RECORD LABEL INTERNSHIP Pepcid and added IV Protonix
Cont IV Decadron, DuoNeb with levalbuterol, Azithromycin for COPD
Pasteuriser Operator/pulm on board
Check CT PE 06/12 for acute respiratory distress
# Spontaneous secondary pneumothorax on the left following intubation
Status post emergent chest tube placement 06/07/2023
Per Pulm, likely constant air leak, chest tube suction was increased, plan for waterseal in the next 24 hours. ��
# Likely compensated shock with positive pressure ventilation and sedation S/E, resolved
Off Levophed
# Mild hyponatremia, resolved
# Mild leucocytosis likely reactive, improving
# Benign Hypertension
BP stable off Levophed support
Resumed RECORD LABEL INTERNSHIP Norvasc and Lisinopril
# Hypothyroidism, Stable.�
Continue T4 supplementation.
DVT Prophylaxis: Lovenox SQ
Code Status:�Full as discussed with the patient
DW RN
acute respiratory distress 06/12 morning
Anticipated Discharge: > 48 hours
Subjective/Interval History
-
Date of Service: June 12, 2023
Objective Data
-
Labs:
Laboratory Results
06/12/23
04:31
WBC 14.1 H
Hgb 10.9 L
Hct 31.9 L
Plt Count 294
Sodium 131 L
Potassium 5.1
Chloride 99
Carbon Dioxide 29
BUN 29 H
Creatinine 0.6
Glucose 129 H
Calcium 8.9
Vital Signs:
Vital Signs
Temp Pulse Resp BP Pulse Ox
37.2 C 115 28 156/78 92
06/11/23 15:51 06/12/23 07:08 06/12/23 07:08 06/12/23 06:40 06/12/23 07:08
I&O
06/11/23 06/12/23 06/13/23
06:59 06:59 06:59
Intake Total 1240 / 1240 490 / 490
Output Total 2200 / 2200 2100 / 2100
Balance -960 / -960 -1610 / -1610
Review of Systems
-
All other systems: Reviewed and negative
Respiratory: Reports Trouble Breathing
Physical Exam
-
General: Well Developed, Comfortable, Respiratory Distress, Conversant and Appears Chronically Ill
HEENT: Oxygen (7L NC)
Respiratory: Chest Tubes (L side)
Cardiac: Regular Rhythm and S1/S2
GI: Soft, Nontender and Nondistended
Musculoskeletal: No Edema
Neuro: Awake
Psych: Calm and Intact Judgement/Insight
Data Reviewed
-
Diagnostic Radiology: Image personally visualized and interpreted and Report Reviewed by me
Labs: Labs Reviewed by me
[2023-06-12] MEDS: ZESTRIL 30 MG PO (08:38)
[2023-06-12] MEDS: FLOMAX 0.400000000000000022 MG PO (08:39)
[2023-06-12] MEDS: PEPCID 20 MG PO (08:39)
[2023-06-12] MEDS: NORVASC 10 MG PO (08:40)
[2023-06-12] MEDS: MIRALAX PO (08:40)
[2023-06-12] MEDS: TESSALON PERLES 200 MG PO ×2 (08:40→20:02)
[2023-06-12] MEDS: MUCINEX 1200 MG PO ×2 (08:40→20:02)
[2023-06-12] MEDS: DECADRON 4 MG IV ×2 (08:40→20:02)
[2023-06-12] MEDS: PROTONIX IV 40 MG IV (08:41)
[2023-06-12] MEDS: NSS (PRESERVATIVE FREE) 10 ML IV (08:41)
[2023-06-12] MEDS: MYCOSTATIN ORAL SUSPENSION 5 ML PO ×3 (08:41→22:54)
[2023-06-12] MEDS: ZITHROMAX PO (09:35)
--- NOTE | 2023-06-12 09:55 | W.PN.PUL3 ---
Today's Communication / Plan
-
Continue IV steroids - wean as tolerated
Check CTA chest
Raise suction on left-sided CT back to -40; obtain serial CXR
Nebulizers with mucomyst
Eventual transition to waterseal once air leak is resolved. If PAL does not resolve, will consult CT surgery as options are surgery vs endobronchial valve placement
Assessment
-
77-year-old woman with history of COPD, initially admitted with acute exacerbation of COPD.� Emergently transferred to ICU on 06/07/2023 after developing acute onset shortness of breath.� Found to have a left-sided pneumothorax.� Chest tube was
placed.� Patient was intubated for hypercapnic respiratory failure.
Acute hypercapnic respiratory failure due to severe exacerbation of COPD-transfer from floors 06/07/2023
Emergently intubated at the bedside in the ICU-06/07/2023 - extubated 06/08/2023
CT chest this admission: Severe emphysema.� No pneumonia.
Spontaneous secondary pneumothorax on the left c/b persistent air leak (occurring throughout respiratory cycle)
Status post emergent chest tube placement 06/07/2023
Conditions ENGLISH ADJUNCT FACULTY:
Severe COPD (post-BD FEV1: 44%, DLco: 27% via PFT from 05/2018), on nocturnal and exertional home O2 at 2LPM, on trelegy, albuterol HFA/nebs, montelukast
Follows with Dr. Ahmadi
HTN
Hypothyroidism
HLD
Assessment and plan:
On -, pt was was emergently intubated due to worsening shortness of breath-initially admitted for acute exacerbation of COPD.06/07/2023
Pt extubated the next day
-
Secondary spontaneous pneumothorax on the left
s/p bedside chest tube placement 06/07/2023.
Chest x-ray 06/09/2023: Persistent 5 to 10% basilar pneumothorax.
Air leak is now worse today and is persisting throughout inspiration and expiration -->�suction is currently at -[id number].� Due to persistent air leak, keep chest tube to negative suction and continue to monitor. �If air leak persists she will need
to be evaluated by thoracic surgery for pleurodesis - other option besides surgery is bronchoscopic valve placement
Continue high-dose oxygen to help resorb PTX
CXR obtained on afternoon due to continues SOB and worsening hypoxia --> shows worsening L-sided PTX. Suction raised to -[id number] and FIO2 should be continued on 100%
Check CTA Chest to r/o PE given her worsening hypoxia and tachycardia (unlikely a PE given she has been getting LMWH since admission)
-
Maintain MAP>65
-
No evidence for infection at this point.
Tracheal aspirate with normal respiratory danielle� iwona (likely contaminant and not pathological)
-
Decreased breath sounds bilaterally.
Continue dexamethasone�--> reduced on 06/11 from 4 mg IV every 8 hours to 4mg IV q12hr
Nebulizers-Pulmicort/DuoNebs.
Azithromycin for anti-inflammatory properties
Recent CT chest without pneumonia.� Normal respiratory danielle 06/05/2023
Tracheal aspirate with normal respiratory danielle.
Continue mucolytics with mucinex and mucomyst given with nebulized bronchodilators
-
Tolerating diet - hold PO diet until SOB improves and L-sided PTX is stable
-
Monitor blood sugars on high-dose of steroids
Insulin sliding scale
Goal BG 140-180
-
DVT prophylaxis subcu Lovenox
PPI for GI prophylaxis
Continue telemetry level of care.
Pulmonary will follow
Subjective Data
-
Date of Service:
Date of Service: June 12, 2023
Chief Complaint: Pulmonary Follow Up
Subjective:
Patient seen this morning. She appears more short of breath today although she does not endorse difficulty breathing. Afebrile overnight. She denies chest pain. Leukocytosis is stable. Hemoglobin also stable. She says that she gets short of
breath still with minimal activity. Family at bedside including son and . They state that she has been getting short of breath with minimal activity for months now. Patient denies headache, abdominal pain, nausea, vomiting, fevers or
chills.
Review of Systems
General: Other (12 point ROS performed and is negative unless mentioned above.)
Objective Data
Data Reviewed
Vital Signs / I&O / Oxygen:
Vital Signs
Temp Pulse Resp BP Pulse Ox
97.8 F 124 20 126/72 95
06/12/23 12:41 06/12/23 12:06 06/12/23 12:06 06/12/23 08:40 06/12/23 12:06
Intake and Output
06/11/23 06/12/23 06/13/23
06:59 06:59 06:59
Intake Total 1240 / 1240 490 / 490
Output Total 2200 / 2200 2100 / 2100
Balance -960 / -960 -1610 / -1610
SaO2 [CPAP/PSV] 96
SaO2 [P-A/C] 96
SaO2 95
Nasal Cannula flow liters per 60
minute
Physical Exam
General: Respiratory Distress (positive)
HEENT: Normocephalic and Moist Mucous Membranes
Cardiovascular: S1-S2, Murmur (n), JVD, Peripheral Edema (n) and Calf Tenderness (n)
Respiratory: Wheeze (trace), Rhonchi, Accessory Resp Muscle Use (positive, worsens with movement), Stridor (n), Chest Tube (Left hemithorax with level 1 air leak) and Other (Grossly diminished breath sounds)
GI: Soft, Non Distended and Non Tender
Neurology: AO x 3 and No Motor Deficits
Skin: Warm and Dry
Labs/Micro/Reports
Lab Data
06/12/23 04:31
06/12/23 04:31
Microbiology
06/07/23 14:04 Tracheal Aspirate Respiratory Culture - Final
Iwona albicans
06/07/23 14:04 Tracheal Aspirate Gram Stain - Final
[2023-06-12] MEDS: MIRALAX 17 GRAMS PO (10:27)
[2023-06-12] MEDS: ZITHROMAX 250 MG PO (10:27)
[2023-06-12] MEDS: SOLU-CORTEF 200 MG IV ×3 (11:25→22:54)
--- NOTE | 2023-06-12 11:51 | PTCARENOTE ---
Patient used bedpan, had difficult time recovering. Switched from nasal midflow cannula to high flow. 60L at 100%. STarted pre medication for CT scan PE study.
[2023-06-12] MEDS: MYCOSTATIN ORAL SUSPENSION PO (13:04)
--- NOTE | 2023-06-12 14:54 | CM ---
CM following re: discharge planning.
Discussed in rounds,reviewed pt's chart, met with pt. Per Rounds meeting, pt requires 60 L HFNC with FIO2 100%, family at bedside. Patient is on continuos O2 at home 2 L NC at baseline. She has a concentrator and portable units. She has a
nebulizer but it is old. She has a rollator that she uses when she gets tired.
PT/OT will re-evaluate the pt when clinically appropriate.
Per CM note, [facility]
D/C plan: TBD and will depend on pt's progress
CM will follow with discharge plan updates as hospitalization progresses
--- NOTE | 2023-06-12 17:00 | PTCARENOTE ---
Repeat CXR completed, appears improved. Patient may eat. Continuing to premedicate for CT scan tonight.
[2023-06-12] MEDS: LOVENOX 40 MG SC (17:38)
--- NOTE | 2023-06-12 20:00 | PTCARENOTE ---
Received patient AAOx3, following commands, denying pain. at bedside. Normal sinus/sinus tach, 90s-110s. BP stable, 110s/50-60s. Palpable radial and pedal pulses bilaterally. Lung sounds diminished, expiratory wheeze noted. Left chest tube
set to -40 suction, air leak level 1. No crepitus. Dressing CDI. Maxed on high flow nasal cannula, saturating 99%. Bedpan to void. Right DL PICC WNL, PIVs WNL. Hourly rounding and patient safety checks ongoing, CT PE at 0000.
[2023-06-12] MEDS: PRAVACHOL 20 MG PO (22:55)
[2023-06-12] MEDS: SINGULAIR 10 MG PO (22:55)
[2023-06-12] MEDS: BENADRYL 50 MG IV (22:55)
[2023-06-13] VITALS (24 sets, daily range): BP systolic 98–153; BP diastolic 55–93
[2023-06-13] MEDS: TYLENOL 650 MG PO ×3 (05:03→17:21)
[2023-06-13 05:18] LABS: Hematocrit 31.1 % (37.0-47.0); Mean Corp Hgb Conc. 35.4 g/dL (33.0-37.0); Mean Corpuscular Volume 90.4 fL (81.0-99.0); Mean Platelet Volume 11.3 fL (7.4-10.4); Platelet Count 318 10^3/uL (130-400); Red Blood Cell Count 3.44 10^6/uL (4.20-5.40); Red Cell Dist. Width 12.9 % (11.5-14.5); White Blood Cell Count 12.8 10^3/uL (4.8-10.8)
--- NOTE | 2023-06-13 05:29 | PTCARENOTE ---
After using bedpan, patient reported new sharp pain on inspiration under her right shoulder. New crepitus around chest tube site noted as well. Pedro Alvarado PRESIDENT + PUBLISHER to bedside, no further intervention at this time. Vitals stable, saturating 97%, BP
120s/60s, heart rate 90s. Patient safety checks ongoing.
[2023-06-13 05:40] LABS: Blood Urea Nitrogen 26 mg/dl (7-17); Calcium 8.7 mg/dl (8.4-10.2); Carbon Dioxide 29 mmol/L (22-30); Chloride 102 mmol/L (98-107); Estimated Creatinine Clearance 55 ml/min; Glucose 133 mg/dl (70-99); Potassium 4.3 mmol/L (3.5-5.1); Sodium 134 mmol/L (135-145); eGFR > 60.00
[2023-06-13] MEDS: SYNTHROID 50 MCG PO (06:19)
[2023-06-13] MEDS: PULMICORT 0.5 MG INH ×2 (07:27→20:47)
[2023-06-13] MEDS: ATROVENT NEBULES 0.5 MG INH ×4 (07:27→20:46)
[2023-06-13] MEDS: XOPENEX 1.25 MG INHALANT SOLUTION INH ×4 (07:27→20:46)
[2023-06-13] MEDS: MUCOMYST 10% 2 ML INH ×2 (07:27→20:46)
--- NOTE | 2023-06-13 08:00 | PTCARENOTE ---
Received patient from night time babysitter. Patient is AAOx3, tearful but pleasant. States she did not sleep well, does not feel well, complains of headache. Patient remains on high flow nasal cannula, is completely turned on right side and states that
she breathes better in that position. Left sided chest tube is hooked up to -40cm of suction, airleak noted and slight amount of crepitus at chest tube insertion. Patient states that she has pain underneath right scapula and slight pain at collar
bone. Patient remains tachypneic Did obtain order from Dr. Javier for morphine. Patient is sinus tach on the monitor. Using bed shore to void, minimal appetite and did not want bowel regimen today. Will review orders. Patient able to make needs
known and call marina within reach.
[2023-06-13] MEDS: PROTONIX IV 40 MG IV (08:07)
[2023-06-13] MEDS: NSS (PRESERVATIVE FREE) 10 ML IV (08:07)
[2023-06-13] MEDS: DECADRON 4 MG IV (08:07)
[2023-06-13] MEDS: TESSALON PERLES 200 MG PO ×2 (08:08→21:07)
[2023-06-13] MEDS: NORVASC PO (08:08)
[2023-06-13] MEDS: ZITHROMAX 250 MG PO (08:08)
[2023-06-13] MEDS: MYCOSTATIN ORAL SUSPENSION 5 ML PO ×3 (08:08→21:08)
[2023-06-13] MEDS: MUCINEX 1200 MG PO ×2 (08:09→21:06)
[2023-06-13] MEDS: PEPCID 20 MG PO (08:09)
[2023-06-13] MEDS: FLOMAX 0.400000000000000022 MG PO (08:09)
[2023-06-13] MEDS: ZESTRIL 30 MG PO (08:09)
[2023-06-13] MEDS: MIRALAX PO (08:14)
--- NOTE | 2023-06-13 08:16 | W.PN.HOSP.TC ---
Addendum entered and electronically signed by Ibis Javier MD 06/14/23 09:20:
discussed with RN and consulting manager extensively
total time spent 51 min
Original Note:
Today's Communication/Plan
-
see A/P
Assessment / Plan
Assessment / Plan
HPI: 77y F with PMH significant for COPD and hypertension who presented to ED complaining of SOB.
A/P:
# Acute hypercapnic respiratory failure on admission due to severe COPD exacerbation
s/p Emergent intubation in the ICU 06/07, Extubated 06/08
now on high flow NC
GI ppx with SCADA TECHNICIAN Pepcid and added IV Protonix
Cont IV Decadron, DuoNeb with levalbuterol, Azithromycin for COPD
Alarm Service Technician/pulm on board
Follow CT PE formal report from 06/12
# Spontaneous secondary pneumothorax on the left following intubation
Status post emergent chest tube placement 06/07/2023
Worsening resp distress 06/12 with increased pneumothorax on CXR, increased suction of chest tube
follow up CXR noted worsening L pneumothorax
pending CXR 06/13 report
Alarm Service Technician/Pulm on board
# Likely compensated shock with positive pressure ventilation and sedation S/E, resolved
Off Levophed
# Mild hyponatremia
# Mild leucocytosis likely reactive, improving
# Benign Hypertension
BP stable off Levophed support
Resumed SCADA TECHNICIAN Norvasc and Lisinopril
# Hypothyroidism, Stable.�
Continue T4 supplementation.
DVT Prophylaxis: Lovenox SQ
Code Status:�Full as discussed with the patient
DW RN
Anticipated Discharge: > 48 hours
Subjective/Interval History
-
Date of Service: June 13, 2023
Objective Data
-
Labs:
Laboratory Results
06/13/23
04:56
WBC 12.8 H
Hgb 11.0 L
Hct 31.1 L
Plt Count 318
Sodium 134 L
Potassium 4.3
Chloride 102
Carbon Dioxide 29
BUN 26 H
Creatinine 0.6
Glucose 133 H
Calcium 8.7
Vital Signs:
Vital Signs
Temp Pulse Resp BP Pulse Ox
36.7 C 97 16 98/87 94
06/13/23 07:59 06/13/23 07:35 06/13/23 07:35 06/13/23 08:09 06/13/23 07:35
I&O
06/12/23 06/13/23 06/14/23
06:59 06:59 06:59
Intake Total 490 / 490
Output Total 2100 / 2100 800 / 800
Balance -1610 / -1610 -800 / -800
Review of Systems
-
Respiratory: Reports Trouble Breathing
Physical Exam
-
General: Well Developed, Comfortable, Respiratory Distress, Conversant and Appears Chronically Ill
HEENT: Oxygen (high flow NC)
Respiratory: Chest Tubes (L side)
Cardiac: Regular Rhythm and S1/S2
GI: Soft, Nontender and Nondistended
Musculoskeletal: No Edema
Neuro: Awake
Psych: Calm and Intact Judgement/Insight
Data Reviewed
-
Diagnostic Radiology: Image personally visualized and interpreted and Report Reviewed by me
CT Scan: Image personally visualized and interpreted
Labs: Labs Reviewed by me
[2023-06-13] MEDS: MORPHINE SULFATE 1 MG IV ×3 (09:56→21:06)
--- NOTE | 2023-06-13 10:02 | W.PN.PUL3 ---
Today's Communication / Plan
-
Continue IV steroids - wean as tolerated
Place new chest tube into left-sided PTX
Continue negative suction on left-sided CT & obtain daily CXR
Nebulizers with mucomyst
Eventual transition to waterseal once air leak is resolved. If PAL does not resolve, will consult CT surgery as options are surgery vs endobronchial valve placement. With her low DLco of <28% since 2019 and most recent PFT showed a DLco of 6%, it
is contraindicated for her to lose any additional lung function as this may not be compatible with life. Hence, hospice may be her best option if this air leak does not resolve.
Assessment
-
77-year-old woman with history of COPD, initially admitted with acute exacerbation of COPD.� Emergently transferred to ICU on 06/07/2023 after developing acute onset shortness of breath.� Found to have a left-sided pneumothorax.� Chest tube was
placed.� Patient was intubated for hypercapnic respiratory failure.
Acute hypercapnic respiratory failure due to severe exacerbation of COPD-transfer from floors 06/07/2023
Emergently intubated at the bedside in the ICU-06/07/2023 - extubated 06/08/2023
CT chest this admission: Severe emphysema.� No pneumonia.
Spontaneous secondary pneumothorax on the left c/b persistent air leak, appears loculated via CTA chest done 06/12/2023
Status post emergent chest tube placement 06/07/2023 but now with possible chest tube dysfunction either due to compression from partially re-expanded lung vs chest tube torsion
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
Very severe COPD (FEV1: 30%, DLco: 6% via PFT from 02/2023, decreased from DLco of 27% via PFT from 05/2018), on nocturnal and exertional home O2 at 2LPM, on trelegy, albuterol HFA/nebs, montelukast
Follows with Dr. Ahmadi
Air trapping also seen due to emphysema
HTN
Hypothyroidism
HLD
Assessment and plan:
On -, pt was was emergently intubated due to worsening shortness of breath-initially admitted for acute exacerbation of COPD.06/07/2023
Pt extubated the next day
-
Secondary spontaneous pneumothorax on the left
s/p bedside chest tube placement 06/07/2023.
Chest x-ray 06/09/2023: Persistent 5 to 10% basilar pneumothorax.
Airleak had initially improved earlier this week, but now it is persisting and she is more symptomatic. CT chest done yesterday shows a moderately sized left-sided partially loculated pneumothorax with near complete left lower lobe atelectasis. No
tension seen. Also a left upper lobe suspected pneumatocele. Considering patient is more symptomatic despite having a chest tube on negative suction at [id number], additional chest tube to be placed to see if this helps her Sx.
If air leak persists she will need to be evaluated by thoracic surgery for pleurodesis - other option besides surgery is bronchoscopic valve placement; she is high risk for either of these procedures and I do not feel any loss of lung function will
be tolerated given her DLco is 6% with DLco/VA 9% on PFts from 02/2023, reduced from DLco of 27% in October 2021
Continue high-dose oxygen to help resorb PTX --> ideally would get her off the HFNC as the positive pressure will only worsen her PTX; once 2nd chest tube is inserted we will place onto NRB andn remove her from HFNC, and see if she is stable on
this regimen
-
Maintain MAP>65
-
No evidence for infection at this point.
Tracheal aspirate with normal respiratory danielle� kwaku (likely contaminant and not pathological)
-
Decreased breath sounds bilaterally.
Continue dexamethasone�--> reduced on 06/11 from 4 mg IV q8 hours to 4mg IV q12hr (equivalent to 53mg prednisone)
Nebulizers-Pulmicort/DuoNebs.
Azithromycin for anti-inflammatory properties
Recent CT chest without pneumonia.� Normal respiratory danielle 06/05/2023
Tracheal aspirate with normal respiratory danielle.
Continue mucolytics with mucinex and mucomyst given with nebulized bronchodilators
-
Tolerating diet - hold PO diet until SOB improves and L-sided PTX is stable
-
Monitor blood sugars on high-dose of steroids
Insulin sliding scale
Goal BG 140-180
-
DVT prophylaxis subcu Lovenox
PPI for GI prophylaxis
Continue telemetry level of care.
Pulmonary will follow
Data:
CTA Chest 06-13-2023:
1. No evidence of pulmonary embolism.
2. Moderate partially loculated left-sided pneumothorax with associated complete left lower lobe atelectasis. No overt tension. Consider possibility of chest tube dysfunction and/or bronchopleural fistula.
3. Probable pneumatocele development in the left upper lobe.
4. Scattered bronchial wall thickening and mucous plugging with possible superimposed aspiration pneumonia in the left lower lobe.
Subjective Data
-
Date of Service:
Date of Service: June 13, 2023
Chief Complaint: Pulmonary Follow Up
Subjective:
Appears more short of breath this morning and tachycardic into the 110s. CTA of the chest done last night is negative for pulmonary embolism and it shows a partially loculated left sided pneumothorax with possible chest tube dysfunction versus BPF.
Also a probable pneumatocele in the left upper lobe. There continues to be an occasional air leak (level 1) in chest to this morning. Patient feels better when she is leaning on her right side. Discussion held with myself and IR, and considering
the moderately sized left-sided pneumothorax on CTA chest, decision made to reinsert new chest tube on the left for patient's comfort.
Review of Systems
General: Other (12 point ROS performed and is negative unless mentioned above.)
Objective Data
Data Reviewed
Vital Signs / I&O / Oxygen:
Vital Signs
Temp Pulse Resp BP Pulse Ox
98.0 F 96 16 113/66 97
06/13/23 07:59 06/13/23 11:06 06/13/23 11:06 06/13/23 11:00 06/13/23 11:06
Intake and Output
06/12/23 06/13/23 06/14/23
06:59 06:59 06:59
Intake Total 490 / 490
Output Total 2100 / 2100 800 / 800
Balance -1610 / -1610 -800 / -800
SaO2 [CPAP/PSV] 96
SaO2 [P-A/C] 96
SaO2 97
Nasal Cannula flow liters per 50
minute
Physical Exam
General: Respiratory Distress (positive) and Chills (negative)
HEENT: Normocephalic and Moist Mucous Membranes
Cardiovascular: Murmur (n), JVD, Peripheral Edema (n), Calf Tenderness (n) and Other (Tachycardic)
Respiratory: Wheeze (negative), Rhonchi, Accessory Resp Muscle Use (positive, worsens with movement), Stridor (n), Chest Tube (Left hemithorax with occassional level 1 air leak) and Other (Grossly diminished breath sounds)
GI: Soft, Non Distended and Non Tender
Neurology: AO x 3 and No Motor Deficits
Skin: Warm and Dry
Labs/Micro/Reports
Lab Data
06/13/23 04:56
06/13/23 04:56
--- NOTE | 2023-06-13 12:00 | PTCARENOTE ---
Awaiting call from IR to take patient to procedure to reposition chest tube. Patient remains on high flow. Have given morphine for pain/SOB as charted in JUL.
[2023-06-13] MEDS: MYCOSTATIN ORAL SUSPENSION PO (12:23)
--- NOTE | 2023-06-13 14:19 | CM ---
CM following re: discharge planning.
Discussed in Rounds, reviewed pt's chart, met with pt and pt's at bedside. Per Rounds meeting, pt requires 50 L HFNC with FIO2 100%, continue supportive care, goals of care discussion with the family.
D/C plan: TBD and will depend on pt's progress.
CM will follow with discharge plan updates as hospitalization progresses
[2023-06-13] MEDS: SOLU-MEDROL PF 40 MG IV ×2 (16:28→21:08)
--- NOTE | 2023-06-13 17:00 | PTCARENOTE ---
Returned patient from IR to floor on high flow. Obtained CXR. Patient has new right sided pneumothorax. new right anterior wall chest tube placed at bedside by Dr. Mckeon.
--- NOTE | 2023-06-13 17:07 | W.SUR.POST ---
Surgical Immediate Post Op
Note
Bedside Right-Sided Tube Thoracostomy Placement
Pre Op Diagnosis: Right Sided Pneumothorax with respiratory distress
Post Op Diagnosis: Same as above
Procedure Performed: Tube thoracostomy
Primary Surgeon/Proceduralist: Dr. Mckeon
Secondary Surgeons: N/A
Anesthesia: Local infiltration with 2% lidocaine without epi
Estimated Blood Loss: less than 5 cc
Fluids: n/a
Drains/Shunts: n/a
Specimens/Cultures: n/a
Doppler/Duplex/Angio (Y/N): n/a
Complications: No immediate complications
Operative Findings: Emergent tube thoracostomy performed with verbal consent obtained from patient in the presence of the patient's and son. Chloraprep was used to clean the right anterior chest wall at her 2nd intercostal space.
Lidocaine was infiltrated into the subcutaneous tissues and air was seen coming into the lidocaine filled syringe. A blunt incision was made at the 2nd intercostall space, and then a 8 croatian chest tube was inserted directed posteriorly and was
attached to suction. Air bubbles were seen immediately in the pleurovac. Chest tube was sutured into place, covered with xeroform, and then covered with 4x4 gauze, tegaderm and silk tape. CXr is ordered to assess for improvement in R-PTX.
[2023-06-13] MEDS: LOVENOX 40 MG SC (17:21)
--- NOTE | 2023-06-13 17:49 | W.PN.UPDATE ---
Update Note
Progress Note Update
After chest tube was placed, I discussed goals of care with the patient's and then with the patient herself. I told the that the pt has extensive emphysema and very severe COPD, and she is not a candidate for surgical or
endobronchial treatment for her pneumothoraces. Hence, if her pneumothoraces do not resolve with the chest tubes, then she will not be able to leave the hospital. I brought up hospice with the and explained what that means. He was
understandable although disappointed. I also spoke with the patient about her code status and that if she needed to be intubated even if it meant to save her life, would that be ok. She said yes, but that if her heart were to stop that she would
not want to be resuscitated. Bedside RN, Sarah Bentley, present during this conversation. I will change the code status to DNR but ok to intubate.
For tonight, AVOID positive pressure ventilation with BiPAP or high flow, and only use high- FiO2 oxygen delivery masks, preferably a non-rebreather to help resorb the PTX. The positive pressure modes of ventilation are too hgih a risk of causing
another pneumothorax or worsening of her current PTX.
--- NOTE | 2023-06-13 21:00 | PTCARENOTE ---
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 B/L CT WNL- L CT with known large air leak. R PICC WNL. prn morphine given for R shoulder pain. purewick in place, POC discussed w/pt, call marina in reach.
[2023-06-13] MEDS: SINGULAIR 10 MG PO (21:08)
[2023-06-13] MEDS: PRAVACHOL 20 MG PO (21:08)
[2023-06-14] VITALS (23 sets, daily range): BP systolic 94–145; BP diastolic 53–84; BMI 17.2
[2023-06-14] MEDS: MORPHINE SULFATE 1 MG IV ×5 (02:34→23:37)
[2023-06-14 03:07] LABS: Hematocrit 34.9 % (37.0-47.0); Hemoglobin 11.7 g/dL (12.0-16.0); Mean Corp Hgb Conc. 33.5 g/dL (33.0-37.0); Mean Corpuscular Hgb 32.1 pg (27.0-31.0); Mean Corpuscular Volume 95.6 fL (81.0-99.0); Mean Platelet Volume 11.5 fL (7.4-10.4); Platelet Count 326 10^3/uL (130-400); Red Blood Cell Count 3.65 10^6/uL (4.20-5.40); Red Cell Dist. Width 12.9 % (11.5-14.5); White Blood Cell Count 18.3 10^3/uL (4.8-10.8)
[2023-06-14 03:23] LABS: Blood Urea Nitrogen 32 mg/dl (7-17); Calcium 8.8 mg/dl (8.4-10.2); Carbon Dioxide 28 mmol/L (22-30); Chloride 96 mmol/L (98-107); Estimated Creatinine Clearance 55 ml/min; Glucose 132 mg/dl (70-99); Potassium 4.5 mmol/L (3.5-5.1); Sodium 134 mmol/L (135-145); eGFR > 60.00
[2023-06-14] MEDS: SOLU-MEDROL PF 40 MG IV ×4 (05:00→23:34)
--- NOTE | 2023-06-14 06:20 | SUR.OPER ---
no changes in assessment, pt resting comfortably on NRB t/o night, sat 100%, prn morphine per MAR x 2 overnight, pt having pain/difficulty emptying bladder, bladder scan/straight cath as documented on work list.
[2023-06-14] MEDS: SYNTHROID 50 MCG PO (06:40)
[2023-06-14] MEDS: PULMICORT 0.5 MG INH ×2 (07:12→19:52)
[2023-06-14] MEDS: ATROVENT NEBULES 0.5 MG INH ×4 (07:12→19:52)
[2023-06-14] MEDS: XOPENEX 1.25 MG INHALANT SOLUTION INH ×4 (07:12→19:52)
[2023-06-14] MEDS: MUCOMYST 10% 2 ML INH ×2 (07:12→19:52)
[2023-06-14] MEDS: NSS (PRESERVATIVE FREE) 10 ML IV (08:14)
[2023-06-14] MEDS: MIRALAX 17 GRAMS PO (08:14)
[2023-06-14] MEDS: MUCINEX 1200 MG PO ×2 (08:15→20:51)
[2023-06-14] MEDS: PROTONIX IV 40 MG IV (08:15)
[2023-06-14] MEDS: ZITHROMAX 250 MG PO (08:15)
[2023-06-14] MEDS: ZESTRIL 30 MG PO (08:15)
[2023-06-14] MEDS: PEPCID 20 MG PO (08:15)
[2023-06-14] MEDS: TESSALON PERLES 200 MG PO ×2 (08:16→20:51)
[2023-06-14] MEDS: MYCOSTATIN ORAL SUSPENSION 5 ML PO ×4 (08:16→20:51)
[2023-06-14] MEDS: FLUSH (NSS) 2 FLUSH IV ×2 (08:17→13:52)
--- NOTE | 2023-06-14 08:46 | W.PN.PUL3 ---
Today's Communication / Plan
-
Continue IV steroids - wean as tolerated
Tonight will clamp right chest tube with AM CXR
Continue negative suction on left-sided CT & obtain daily CXR
Nebulizers with mucomyst
Start Abx with blood Cx and sputum Cx, MRSA swab and urine antigens
Eventual transition to waterseal once air leak is resolved on left. Will consult CT surgery as options are surgery vs endobronchial valve placement. With her low DLco of <28% since 2019 and most recent PFT showed a DLco of 6%, it is
contraindicated for her to lose any additional lung function as this may not be compatible with life. Hence, hospice may be her best option if this air leak does not resolve. Dr. Robledo will see the patient at end of next week if pt still inpatient
and not on hospice yet at that time.
Assessment
-
77-year-old woman with history of COPD, initially admitted with acute exacerbation of COPD.� Emergently transferred to ICU on 06/07/2023 after developing acute onset shortness of breath.� Found to have a left-sided pneumothorax.� Chest tube was
placed.� Patient was intubated for hypercapnic respiratory failure.
Impression:
Acute hypercapnic respiratory failure due to severe exacerbation of COPD-transfer from floors 06/07/2023
Emergently intubated at the bedside in the ICU-06/07/2023 - extubated 06/08/2023
CT chest this admission: Severe emphysema.� No pneumonia.
Spontaneous secondary pneumothorax on the left c/b persistent air leak, appears loculated via CTA chest done 06/12/2023
Status post emergent chest tube placement 06/07/2023 but now with possible chest tube dysfunction either due to compression from partially re-expanded lung vs chest tube torsion --> repositioned by IR 06/13/2023
Right sided secondary pneumothorax (developed after returning from IR on 06/13/2023 after going down for L-sided chest tube re-positioning)
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
Very severe COPD (FEV1: 30%, DLco: 6% via PFT from 02/2023, decreased from DLco of 27% via PFT from 05/2018), on nocturnal and exertional home O2 at 2LPM, on trelegy, albuterol HFA/nebs, montelukast
Follows with Dr. Ahmadi
Air trapping also seen due to emphysema
HTN
Hypothyroidism
HLD
Assessment and plan:
On -, pt was was emergently intubated due to worsening shortness of breath-initially admitted for acute exacerbation of COPD.06/07/2023
Pt extubated the next day
-
Secondary spontaneous pneumothorax on the left and right
s/p bedside chest tube placement 06/07/2023.
Chest x-ray 06/09/2023: Persistent 5 to 10% basilar pneumothorax.
Regarding the left PTX: Airleak had initially improved earlier this week, but now it is persisting and she is more symptomatic. CT chest done yesterday shows a moderately sized left-sided partially loculated pneumothorax with near complete left
lower lobe atelectasis. No tension seen. Also a left upper lobe suspected pneumatocele. Considering patient is more symptomatic despite having a chest tube on negative suction at [id number], additional chest tube to be placed to see if this helps
her Sx.
If air leak persists she will need to be evaluated by thoracic surgery for pleurodesis - other option besides surgery is bronchoscopic valve placement; she is high risk for either of these procedures and I do not feel any loss of lung function will
be tolerated given her DLco was DLco of 27% in October 2021 (last PFT in 02/2023 shows DLco of 6% with DLco/VA 9% - unclear if this is legitimate though, may be falsely low)
Continue high-dose oxygen to help resorb PTX --> avoid all positive pressure oxygen modalities (i.e., high flow, BiPAP) as the positive pressure will only worsen her PTX
Regarding the right PTX: Chest tube placed by me at bedside on 06/13, PTX appears almost fully resolved, and no air leak as of this AM (06/14). I put chets tube to water seal this AM, and will clamp overnight with CXR in AM.
I will consult CT surgery for their opinion on if any thoracic intervention can be done. Dr Robledo is only surgeon available who does non-cardiac surgery. he is unavailable until end of next week. If patient is still inpatient then he will evaluate
the patient at that jaylon. If pt not surgical candidate, pt and family will likely pursue hospice.
-
Maintain MAP>65
-
No evidence for infection at this point.
Tracheal aspirate with normal respiratory danielle� kwaku (likely contaminant and not pathological)
-
Decreased breath sounds bilaterally.
Continue systemic steroids; initially on dexamethasone�--> reduced on 06/11 from 4 mg IV q8 hours to 4mg IV q12hr (equivalent to 53mg prednisone) --> raised back to solumedrol 40mg IV q6hr on 06/13
Nebulizers-Pulmicort/DuoNebs.
Azithromycin for anti-inflammatory properties
Prior CT chest on 06/06 without pneumonia.� Normal respiratory danielle 06/05/2023 --> however looks like she may have aspirated as per CTA chest from 06/13, and her WBC is elevated (albeit also on steroids). I will start Unasyn and give 7 days total
assuming she remains afebrile for at least 48 hrs prior to stopping ABx. she may be hospice care by that point anyway.
Re-check blood Cx, check sputum Cx, legionella and Strep pneumo urine antigens and MRSA swab
Continue mucolytics with mucinex and mucomyst given with nebulized bronchodilators
Pain control; prn morphine for air hunger
-
Tolerating diet as long as not too SOB
-
Monitor blood sugars on high-dose of steroids --> start to wean steroids tonight to 40mg IV q8hr
Insulin sliding scale
Goal BG 140-180
-
DVT prophylaxis subcu Lovenox
PPI for GI prophylaxis
Continue IMU level of care (upgraded from tele on 06/13)
Pulmonary will continue to closely follow.
Data:
CTA Chest 06-13-2023:
1. No evidence of pulmonary embolism.
2. Moderate partially loculated left-sided pneumothorax with associated complete left lower lobe atelectasis. No overt tension. Consider possibility of chest tube dysfunction and/or bronchopleural fistula.
3. Probable pneumatocele development in the left upper lobe.
4. Scattered bronchial wall thickening and mucous plugging with possible superimposed aspiration pneumonia in the left lower lobe.
CXR 06-14-2023: Small to moderate right and small left basilar pneumothoraces with bilateral chest tubes in place. Similar appearance compared to the chest radiograph from 06/13/2023.
Subjective Data
-
Date of Service:
Date of Service: June 14, 2023
Chief Complaint: Pulmonary Follow Up
Subjective:
Last night the left-sided chest tube was adjusted by IR and then when she came back she had a right-sided pneumothorax. I placed a chest tube at bedside with almost complete resolution of the right-sided pneumothorax postprocedure. She wore the
nonrebreather for the majority overnight, but did get placed back onto high flow nasal cannula for >30 mins when she had her breathing treatment.
Patient seen today. She feels much better this morning. Eating breakfast, denies any chest pain, denies worsening shortness of breath, fevers or chills. CXR this morning shows a small right-sided pneumothorax and a small left-sided pneumothorax
with bilateral chest tubes in place. There is no air leak on the right chest tube, and there was a level 1 air leak on the left chest tube.
Review of Systems
General: Other (12 point ROS performed and is negative unless mentioned above.)
Objective Data
Data Reviewed
Vital Signs / I&O / Oxygen:
Vital Signs
Temp Pulse Resp BP Pulse Ox
97.8 F 115 25 115/63 93
06/14/23 15:52 06/14/23 17:00 06/14/23 17:00 06/14/23 17:00 06/14/23 17:00
Intake and Output
06/13/23 06/14/23 06/15/23
06:59 06:59 06:59
Intake Total 240 / 240 300 / 300
Output Total 800 / 800 1225 / 1225
Balance -800 / -800 -985 / -985 300 / 300
SaO2 [CPAP/PSV] 96
SaO2 [P-A/C] 96
SaO2 93
Nasal Cannula flow liters per 15
minute
Physical Exam
General: Respiratory Distress (negative) and Chills (negative)
HEENT: Normocephalic, Anicteric and Moist Mucous Membranes
Cardiovascular: S1-S2, Murmur (n), JVD, Peripheral Edema (n), Calf Tenderness (n) and Other (Tachycardic)
Respiratory: Wheeze (negative), Crackles (negative), Rhonchi, Accessory Resp Muscle Use (positive, worsens with movement), Stridor (n), Chest Tube (Left hemithorax with persistent level 1 air leak; right chest tube with no air leak) and Other
(Grossly diminished breath sounds)
GI: Soft, Non Distended and Non Tender
Neurology: AO x 3 and No Motor Deficits
Skin: Warm and Dry
Labs/Micro/Reports
Lab Data
06/14/23 02:40
06/14/23 02:40
--- NOTE | 2023-06-14 09:00 | PTCARENOTE ---
Rec'd pt at 0800 awake alert and oriented resting in bed. Overall states she ok. Admits to some soreness at the chest tube sites 08/27 Medicated at 0815 with Morphine 1 mg IV. Speech is clear. CORDOBA. Skin is pale pink wm and dry. Respirs are shallow
but overall non-labored currently on 15L midflow after having am nebs. R ant CT to -20 cm water suction- no drainage and no air leak. Dressing is D+I. L ant/lat CT to -20 cm water suction. Level 2 air leak-with bubbling. Draining serosang
draining. Minimal amt of crepitus noted L ant chest- somewhat difficult to feel. Dressing is D+I. BS in general are sl coarse and decreased throughout. Sats currently are 94%. Monitor ST with PAC's. Denies distinct chest pain. VS as documented. +
pulses. No edema. Abd is soft with + BS. Pt states overall she is not that hungry. Denies nausea but ate only about 40% of breakfast. No stools. Denies need to void currently. Purewick in place. R arm DL picc-site wnl. Pt repositioned. Call marina in
reach. Plan of care discussed with pt. Will monitor closely.
--- NOTE | 2023-06-14 09:02 | W.PN.HOSP.TC ---
Today's Communication/Plan
-
see A/P
Assessment / Plan
Assessment / Plan
HPI: 77y F with PMH significant for COPD and hypertension who presented to ED complaining of SOB.
A/P:
# Acute hypoxic and hypercapnic respiratory failure on admission due to spontaneous pneumothorax and severe COPD exacerbation POA
see below
# severe COPD exacerbation
s/p Emergent intubation in the ICU 06/07, Extubated 06/08
GI ppx with [employer] Pepcid and added IV Protonix
IV Decadron -> methylprednisolone
cont DuoNeb with levalbuterol, Azithromycin for COPD
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
# Spontaneous L lung pneumothorax following intubation
# Spontaneous R lung pneumothorax
Status post emergent Left chest tube placement 06/07/2023
Status post emergent Right chest tube placement 06/13/2023
Laminating Machine Operator/Pulm on board, recc to AVOID positive pressure ventilation with BiPAP or high flow to avoid another pneumothorax or worsening of her current PTX, use high FiO2 oxygen delivery masks e.g. non-rebreather to help resorb the PTX.
Laminating Machine Operator discussed code status and hospice with pt and ; current plan is limited code status: Ok to intubate but DNR.
# Likely compensated shock with positive pressure ventilation and sedation S/E, resolved
Off Levophed
# Mild hyponatremia
# Mild leucocytosis likely reactive, improving
# Benign Hypertension
BP stable off Levophed support
Resumed [employer] Norvasc and Lisinopril
# Hypothyroidism, Stable.�
Continue T4 supplementation.
DVT Prophylaxis: Lovenox SQ
Code Status: Now limited code status: Ok to intubate but DNR.
DW Laminating Machine Operator
Anticipated Discharge: > 48 hours
Subjective/Interval History
-
Date of Service: June 14, 2023
Objective Data
-
Labs:
Laboratory Results
06/14/23
02:40
WBC 18.3 H
Hgb 11.7 L
Hct 34.9 L
Plt Count 326
Sodium 134 L
Potassium 4.5
Chloride 96 L
Carbon Dioxide 28
BUN 32 H
Creatinine 0.5 L
Glucose 132 H
Calcium 8.8
Vital Signs:
Vital Signs
Temp Pulse Resp BP Pulse Ox
36.8 C 101 18 137/84 93
06/13/23 20:30 06/14/23 08:15 06/14/23 07:17 06/14/23 08:15 06/14/23 07:17
I&O
06/13/23 06/14/23 06/15/23
06:59 06:59 06:59
Intake Total 240 / 240
Output Total 800 / 800 1225 / 1225
Balance -800 / -800 -985 / -985
Review of Systems
-
Respiratory: Reports Trouble Breathing (improved )
Physical Exam
-
General: Well Developed, Comfortable, Respiratory Distress, Conversant and Appears Chronically Ill
HEENT: Oxygen (15L midflow )
Respiratory: Chest Tubes (BL )
Cardiac: Regular Rhythm and S1/S2
GI: Soft, Nontender and Nondistended
Musculoskeletal: No Edema
Neuro: Awake
Psych: Calm and Intact Judgement/Insight
Data Reviewed
-
Diagnostic Radiology: Image personally visualized and interpreted and Report Reviewed by me
Labs: Labs Reviewed by me
--- NOTE | 2023-06-14 10:00 | PTCARENOTE ---
Dozing after Morphine. No changes.
--- NOTE | 2023-06-14 11:30 | PTCARENOTE ---
Remains resting. Repositioned. Overall states she is feeling better after repositioning. [place] as if she was trying to void and couldn't. Bladder scanned for 281 mls. Will monitor. Family at the bedside. Dr. Mckeon in and recommended keeping a 100%
NRB mask on unless eating for maximum O2. Changed from the 15L midflow back to 100% NRB. Sats 96%.
[2023-06-14] MEDS: FLUSH (NSS) 1 FLUSH IV ×3 (13:49→17:23)
--- NOTE | 2023-06-14 14:01 | PTCARENOTE ---
Pt was able to void a mod amt of urine on the bedpan. Bladder scanned after for 171 mls. CHG bath given. Pt turned and repositioned. Tends to like to lay on her R side. Sats have been 94% on 100% NRB mask. Ate all of lunch. No nausea. Remedicated at
1350 for 4/10 R scapular pain. R chest tube- no air leak. Still with level 2-3 air leak on the L. No other changes. Family at the bedside and updated.
--- NOTE | 2023-06-14 16:45 | PTCARENOTE ---
Has been resting. Repeat Chest Xray with R chest tube on water seal obtained. Pt just had an episode of coughing a moist non-prod cough and after felt like she couldn't get air. Sats decreased to 84%. and HR tachy up to [address] with PAC's-
repositioned and flow increased on NRB and sats back up to 90%. HR currently 112. VS as documented. Denies further need to void. Dr. Mckeon updated- will increase prn Morphine to q2hrs prn. .
--- NOTE | 2023-06-14 17:31 | PTCARENOTE ---
Remedicated with Morphine 1 mg IV for breathing and R scapular discomfort. No other changes. Does say breathing is eased and sats are 93%
[2023-06-14] MEDS: LOVENOX 40 MG SC (18:12)
[2023-06-14] MEDS: UNASYN IV ×2 (18:12→23:34)
--- NOTE | 2023-06-14 18:30 | PTCARENOTE ---
Per MD order Blood Culture sent, MRSA swab sent and pt straight cathed for 250 mls of urine and urine studies sent. Pt repositioned. Dr. Mckeon in and R chest tube clamped via the stopcock at the chest tube insertion site. L chest tube remains
with airleak around 5 with intermittent tidaling. Pt states earlier Morphine helped and currently is feeling good. Ready to eat dinner. Will continue to monitor
--- NOTE | 2023-06-14 18:37 | CONSULT.CT ---
Consultation
-
Date/Time Consultation Requested: 06/14/231744
Date/Time Consultation Performed: 06/14/239
Requesting Provider: Mike EVANS
Performing Provider: Chaparrita Robledo MD
Reason for Consultation: endobronchial valve placement
Patient History
Physicians
Family Physician: Shantelle Strickland
History of Present Illness
77-year-old female with past medical history severe COPD, anxiety/depression hypertension, hypothyroidism, skin cancer presented to [facility] on 06/04 with complaints of shortness of breath that has been worsening for the past week. She
had a cough that was productive earlier in the week and has become less productive and complaining of a 'tight' cough. She typically wears 1 L nasal cannula at home, however, she has now increased it to 2 L nasal cannula. She presented to the ER
because the shortness of breath woke her up from sleep and her SpO2 at that time was in the 80s. While in the ER she was started on DuoNebs and oxygen was increased to 4 L nasal cannula. She was also started on empiric doxycycline in the ER and
mucolytic's. On 06/07 patient was transferred to the ICU for acute hypercapnic respiratory failure and was emergently intubated at bedside. She was found to have a spontaneous left pneumothorax and received a emergent chest tube. Since the chest
tube has been placed there has been a persistent air leak despite increase chest tube suction. She was extubated on 06/08 and now on NRB to avoid poitive pressure ventilation. On 06/13, patient was found to have a right-sided pneumothorax with
respiratory distress therefore a right chest tube was placed. CT surgery was consulted for options of pleurodesis versus endobronchial valve placement.
Past Medical History
Past Medical History: COPD, HTN and Hypercholesterolemia
Social History
Alcohol: Occasional
Drug: None
Tobacco: Former Smoker
Personal:
Living: With Family
Allergies
Allergy/AdvReac Type Severity Reaction Status Date / Time
iv contrast Allergy Rash Uncoded 06/08/23 07:51
Home Medications
Medication Instructions Recorded Confirmed Type
amlodipine 10 mg tablet 10 mg PO DAILY Blood pressure 02/15/09 06/04/23 History
levothyroxine 50 mcg tablet 50 mcg PO DAILY@0600 Thyroid 02/15/09 06/04/23 History
lisinopril 30 mg tablet (Zestril) 30 mg PO DAILY Blood pressure 02/15/09 06/04/23 History
montelukast 10 mg tablet 10 mg PO HS Allergies 02/15/09 06/04/23 History
fluticasone fur. 100 mcg-umeclid 1 ea inhalation R DAILY 09/17/22 06/04/23 History
62.5 mcg-vilant 25 mcg Lung/breathing issues
inhalat.powder (Trelegy Ellipta)
pravastatin 20 mg tablet 20 mg PO HS High cholesterol 09/17/22 06/04/23 History
famotidine 20 mg tablet 20 mg PO DAILY 30 days #30 tabs 09/25/22 06/04/23 Rx
acetaminophen 500 mg tablet 1,000 mg PO HS Pain 06/04/23 06/04/23 History
(Tylenol Extra Strength)
albuterol sulfate 2.5 mg/3 mL 2.5 mg inhalation R BID SOB 06/04/23 06/04/23 History
(0.083 %) solution for nebulization
albuterol sulfate 90 mcg/actuation 2 puff inhalation R [id number] PRN sob 06/04/23 06/04/23 History
aerosol inhaler (ProAir HFA)
budesonide 0.5 mg/2 mL suspension 0.5 mg inhalation R BID SOB 06/04/23 06/04/23 History
for nebulization
guaifenesin 400 mg tablet 400 mg PO BID Cough 06/04/23 06/04/23 History
omega 9-jqy-tiv-fish oil 1,000 mg 1 cap PO DAILY Supplement 06/04/23 06/04/23 History
(120 mg-180 mg) capsule (Fish Oil)
therapeutic multivitamin 1 tab PO DAILY Supplement 06/04/23 06/04/23 History
Review of Systems
-
History Source: Patient
General: Reports Weight Loss
HEENT: Reports No Symptoms
Respiratory: Reports SOB
Cardiac: Reports No Symptoms
Abdomen/GI: Reports No Symptoms
: Reports No Symptoms
Musculoskeletal: Reports No Symptoms
Skin: Reports No Symptoms
Neurological: Reports No Symptoms
Vascular: Reports No Symptoms
Physical Exam
Vital Signs
Temp 97.8 F 06/14/23 15:52
Temp route: Axillary 06/14/23 15:52
Pulse 115 06/14/23 17:00
Rhythm: Sinus tachycardia 06/14/23 13:00
With- PAC's 06/14/23 13:00
Resp Rate 25 06/14/23 17:00
Systolic BP: 133 06/08/23 11:09
Blood pressure 115/63 06/14/23 17:00
Blood pressure extremity used: Left upper arm 06/14/23 13:00
Position: Lying 06/14/23 13:00
MAP (cuff-Keri Monitor) 79 06/14/23 17:00
SaO2 93 06/14/23 17:00
Nasal Cannula flow liters per minute 15 06/14/23 11:09
Oxygen Mode of Delivery Non-rebreather mask 06/14/23 16:00
Other oxygen comment Wears 2LO2 at homr 06/04/23 21:05
Flow liters per minute # 15 06/14/23 16:00
% Oxygen delivered 100 06/14/23 16:00
Pulse Ox at Rest 93 06/06/23 16:38
Acceptable pain level during hospitalization? 0 06/04/23 04:03
Can the patient verbally communicate their pain? Yes 06/14/23 18:13
Pain scale ratin 06/14/23 18:13
Actual Weight 42.7 kg 06/14/23 06:00
Body Mass Index (BMI) 17.2 06/14/23 06:00
Supine- Blood Pressure 144/65 06/06/23 16:38
Supine- Pulse 104 06/06/23 16:38
etC02 value 28 06/08/23 12:40
Heart rate after activity 148 06/06/23 16:38
Blood pressure after activity 161/115 06/06/23 16:38
Oxygen Saturation with Activity 90 06/06/23 16:38
Labs
06/14/23 02:40
06/14/23 02:40
PT 12.8 Sec (11.4-14.6) 06/09/23 04:12
APTT 25.1 Sec (23.4-35.0) 06/09/23 04:12
Troponin I < 0.012 ng/ml 06/09/23 14:43
Arterial Blood Gases
pH 7.44 (7.35-7.45) 06/08/23 11:59
pCO2 38 mmHg (32-35) H 06/08/23 11:59
pO2 93 mmHg (83-108) 06/08/23 11:59
HCO3 25.8 mmol/L (21-28) 06/08/23 11:59
Base Excess 1.7 mmol/L 06/08/23 11:59
ABG O2 Sat (Measured) 98.6 % (94-98) H 06/08/23 11:59
O2 Delivery Level Not Reportable 06/08/23 11:59
Urinalysis
Urine Color Yellow 06/11/23 14:23
Urine Clarity Clear (Clear) 06/11/23 14:23
Urine pH 6.0 (5.0-9.0) 06/11/23 14:23
Ur Specific [place] 1.010 (<1.030) 06/11/23 14:23
Urine Ketones Negative (Negative) 06/11/23 14:23
Ur Occult Blood Reflex Negative (Negative) 06/11/23 14:23
Urine Bilirubin Negative (Negative) 06/11/23 14:23
Leukocyte Esterase Rfl Negative (Negative) 06/11/23 14:23
Urine Glucose Negative (Negative) 06/11/23 14:23
Urine Albumin (Reflex) Negative (Neg - Trace) 06/11/23 14:23
Exam
General: No Apparent Distress
HEENT: Normocephalic
Respiratory: Clear
Cardiac: S1/S2
GI: Soft and Non Tender
Rectal: Deferred by Provider
Skin: Warm and Dry
Neuro: AO x 3
Lymph: No Lymphadenopathy
Psych: Calm
Assessment / Plan
-
77-year-old female with past medical history listed above presented to [facility] with worsening shortness of breath. Throughout her stay she has been intubated and extubated and now on a NRB to avoid positive pressure ventilation and has
developed bilateral pneumothoraxes with persistent air leaks. CT surgery was consulted for for surgery vs endobronchial valves.
#Secondary spontaneous pneumothorax on the left and right
-MDT discussion on course of action, surgical risk is extreme, and patient is not considered a candidate with current pulmonary function.
-Agree with ongoing discussion of hospice
-Could possibly be a candidate for blood patch, although low probability of success and does at the risk of empyema formation
[2023-06-14] MEDS: SINGULAIR 10 MG PO (20:51)
[2023-06-14] MEDS: PRAVACHOL 20 MG PO (20:51)
--- NOTE | 2023-06-14 21:54 | PTCARENOTE ---
Assumed care of pt at 1900. Pt is A/O x4, pleasant and cooperative with care. Denies need for any pain medication at this time, states she will ring when she feels like she needs it. Received pt on 100% NRB mask, SpO2 has been in mid 90s, will
easily/quickly drop when mask is off or with exertion. Left lateral chest tube to wall suction (-20 on chest tube, 100mmHg on wall), dressing is C/D/I, air leak +3 and tidaling noted, no crepitus. Right anterior chest tube clamped towards end of
previous shift, to remained clamped overnight with repeat CXR ordered in AM. Physical assessment completed, see nursing shift assessment flowsheet for full details. ST with PACs on monitor, HR in low 100s. Call marina and personal belongings within
reach. Pt is currently IMU level of care.
[2023-06-15] VITALS (24 sets, daily range): BP systolic 84–149; BP diastolic 44–90; BMI 17.7
[2023-06-15 05:07] LABS: Hematocrit 30.5 % (37.0-47.0); Hemoglobin 10.4 g/dL (12.0-16.0); Mean Corp Hgb Conc. 34.1 g/dL (33.0-37.0); Mean Corpuscular Hgb 31.7 pg (27.0-31.0); Mean Platelet Volume 11.1 fL (7.4-10.4); Platelet Count 308 10^3/uL (130-400); Red Blood Cell Count 3.28 10^6/uL (4.20-5.40); White Blood Cell Count 18.4 10^3/uL (4.8-10.8)
[2023-06-15] MEDS: UNASYN IV ×3 (05:24→17:03)
[2023-06-15] MEDS: SYNTHROID 50 MCG PO (05:25)
[2023-06-15 05:32] LABS: Blood Urea Nitrogen 35 mg/dl (7-17); Calcium 8.5 mg/dl (8.4-10.2); Carbon Dioxide 27 mmol/L (22-30); Chloride 98 mmol/L (98-107); Estimated Creatinine Clearance 53 ml/min; Glucose 145 mg/dl (70-99); Potassium 4.9 mmol/L (3.5-5.1); Sodium 132 mmol/L (135-145); eGFR > 60.00
[2023-06-15] MEDS: MORPHINE SULFATE 1 MG IV ×6 (05:35→22:03)
--- NOTE | 2023-06-15 06:11 | PTCARENOTE ---
Pt slept most of the shift, received Morphine x2 this shift. SpO2 has remained in high 90s-100% on NRB. R anterior CT remains clamped. L chest tube to suction, chest tube assessment unchanged. Pt only able to void 45 mL overnight, states that she
feels like she has to urinate but is unable to do so. Bladder scanned this AM for >400, straight cathed for 500mL of clear yellow urine.
--- NOTE | 2023-06-15 06:14 | PTCARENOTE ---
Pt slept most of the shift, received Morphine x2 this shift. SpO2 has remained in high 90s-100% on NRB. R anterior CT remains clamped. L chest tube to suction, chest tube assessment unchanged. Pt bladder scanned earlier in shift but did not have
enough to warrant being straight cathed. She wanted to try to void on the bedpan but was only able to void 45 mL. Pt states that she feels like she has to urinate but has been having trouble doing so. Bladder scanned this AM for >400, straight
cathed for 500mL of clear yellow urine.
[2023-06-15] MEDS: PULMICORT 0.5 MG INH ×2 (07:15→19:47)
[2023-06-15] MEDS: ATROVENT NEBULES 0.5 MG INH ×4 (07:15→19:47)
[2023-06-15] MEDS: XOPENEX 1.25 MG INHALANT SOLUTION INH ×3 (07:15→15:56)
[2023-06-15] MEDS: MUCOMYST 10% 2 ML INH (07:15)
--- NOTE | 2023-06-15 08:22 | W.PN.HOSP.TC ---
Today's Communication/Plan
-
see A/P
Assessment / Plan
Assessment / Plan
HPI: 77y F with PMH significant for COPD and hypertension who presented to ED complaining of SOB.
A/P:
# Acute hypoxic and hypercapnic respiratory failure on admission due to spontaneous pneumothorax and severe COPD exacerbation POA
see below
# severe COPD exacerbation
s/p Emergent intubation in the ICU 06/07, Extubated 06/08
GI ppx with DIAGNOSTIC IMAGING MANAGER Pepcid and added IV Protonix
IV Decadron -> methylprednisolone
cont DuoNeb with levalbuterol, Azithromycin for COPD
Sheet Metal Duct Installer/pulm on board
# Spontaneous L lung pneumothorax following intubation
# Spontaneous R lung pneumothorax
Status post emergent Left chest tube placement 06/07/2023
Status post emergent Right chest tube placement 06/13/2023
Sheet Metal Duct Installer/Pulm on board, recc to AVOID positive pressure ventilation with BiPAP or high flow to avoid another pneumothorax or worsening of her current PTX, use high FiO2 oxygen delivery masks e.g. non-rebreather to help resorb the PTX.
Sheet Metal Duct Installer discussed code status and hospice with pt and ; current plan is limited code status: Ok to intubate but DNR.
Unasyn started, follow blood Cx, MRSA screen, urine Ag negative
Check procal
CT surgery consulted, surgical risk is extreme, and patient is not considered a candidate with current pulmonary function. Agree with ongoing discussion of hospice�if air leak does not resolve
# Likely compensated shock with positive pressure ventilation and sedation S/E, resolved
Off Levophed
# Mild hyponatremia
# Mild leucocytosis likely reactive, improving
# Benign Hypertension
BP stable off Levophed support
Resumed DIAGNOSTIC IMAGING MANAGER Norvasc and Lisinopril
# Hypothyroidism, Stable.�
Continue T4 supplementation.
DVT Prophylaxis: Lovenox SQ
Code Status: Now limited code status: Ok to intubate but DNR.
DW RN
Anticipated Discharge: > 48 hours
Subjective/Interval History
-
Date of Service: June 15, 2023
Objective Data
-
Labs:
Laboratory Results
06/15/23
05:01
WBC 18.4 H
Hgb 10.4 L
Hct 30.5 L
Plt Count 308
Sodium 132 L
Potassium 4.9
Chloride 98
Carbon Dioxide 27
BUN 35 H
Creatinine 0.5 L
Glucose 145 H
Calcium 8.5
Vital Signs:
Vital Signs
Temp Pulse Resp BP Pulse Ox
36.2 C 92 20 127/58 100
06/15/23 07:50 06/15/23 07:19 06/15/23 07:19 06/15/23 06:00 06/15/23 07:19
I&O
06/14/23 06/15/23 06/16/23
06:59 06:59 06:59
Intake Total 240 / 240 1155 / 1155
Output Total 1225 / 1225 960 / 960
Balance -985 / -985 195 / 195
Review of Systems
-
Respiratory: Reports Trouble Breathing (improved )
Physical Exam
-
General: Well Developed, Comfortable, Respiratory Distress, Conversant and Appears Chronically Ill
HEENT: Oxygen (interchanging 15L midflow and NRB )
Respiratory: Chest Tubes (BL )
Cardiac: Regular Rhythm and S1/S2
GI: Soft, Nontender and Nondistended
Musculoskeletal: No Edema
Neuro: Awake
Psych: Calm and Intact Judgement/Insight
Data Reviewed
-
Diagnostic Radiology: Image personally visualized and interpreted and Report Reviewed by me
Labs: Labs Reviewed by me
[2023-06-15] MEDS: SOLU-MEDROL PF 40 MG IV ×2 (08:30→17:03)
[2023-06-15] MEDS: ZESTRIL 30 MG PO (08:30)
[2023-06-15] MEDS: PEPCID 20 MG PO (08:30)
[2023-06-15] MEDS: TESSALON PERLES 200 MG PO (08:30)
[2023-06-15] MEDS: PROTONIX 40 MG PO (08:30)
[2023-06-15] MEDS: ZITHROMAX 250 MG PO (08:30)
[2023-06-15] MEDS: MYCOSTATIN ORAL SUSPENSION 5 ML PO ×3 (08:31→21:53)
[2023-06-15] MEDS: MIRALAX 17 GRAMS PO (08:31)
[2023-06-15] MEDS: MUCINEX 1200 MG PO ×2 (08:31→19:59)
--- NOTE | 2023-06-15 10:06 | W.PN.PUL3 ---
Today's Communication / Plan
-
Continue IV steroids - wean as tolerated
Keep right sided chest tube clamped --> will remove in AM if no PTX recurrence by then on right side
I lowered the neg suction on left to -15 from -20, check AM CXR
Nebulizers with mucomyst
Continue Abx x 7 day total with blood Cx and sputum Cx, MRSA swab
Eventual transition to waterseal once air leak is resolved on left. CT surgery consulted as options are surgery vs endobronchial valve placement. With her low DLco of <28% since 2019 and most recent PFT showed a DLco of 6%, it is contraindicated
for her to lose any additional lung function as this may not be compatible with life. Hence, hospice may be her best option if this air leak does not resolve. Dr. Robledo will see the patient at end of next week if pt still inpatient and not on
hospice yet at that time.
Assessment
-
77-year-old woman with history of COPD, initially admitted with acute exacerbation of COPD.� Emergently transferred to ICU on 06/07/2023 after developing acute onset shortness of breath.� Found to have a left-sided pneumothorax.� Chest tube was
placed.� Patient was intubated for hypercapnic respiratory failure.
Impression:
Acute hypercapnic respiratory failure due to severe exacerbation of COPD-transfer from floors 06/07/2023
Emergently intubated at the bedside in the ICU-06/07/2023 - extubated 06/08/2023
CT chest this admission: Severe emphysema.� No pneumonia.
Spontaneous secondary pneumothorax on the left c/b persistent air leak, appears loculated via CTA chest done 06/12/2023
Status post emergent chest tube placement 06/07/2023 but now with possible chest tube dysfunction either due to compression from partially re-expanded lung vs chest tube torsion --> repositioned by IR 06/13/2023
Right sided secondary pneumothorax (developed after returning from IR on 06/13/2023 after going down for L-sided chest tube re-positioning) s/p bedside chest tube now clamped as of evening of 06/14
Conditions SOFTWARE QUALITY TESTER:
Very severe COPD (FEV1: 30%, DLco: 6% via PFT from 02/2023, decreased from DLco of 27% via PFT from 05/2018), on nocturnal and exertional home O2 at 2LPM, on trelegy, albuterol HFA/nebs, montelukast
Follows with Dr. Ahmadi
Air trapping also seen due to emphysema
HTN
Hypothyroidism
HLD
Assessment and plan:
On -, pt was was emergently intubated due to worsening shortness of breath-initially admitted for acute exacerbation of COPD.06/07/2023
Pt extubated the next day
-
Secondary spontaneous pneumothorax on the left and right
s/p bedside chest tube placement 06/07/2023.
Chest x-ray 06/09/2023: Persistent 5 to 10% basilar pneumothorax.
Regarding the left PTX: Airleak had initially improved earlier this week, but now it is persisting and she is more symptomatic. CT chest done yesterday shows a moderately sized left-sided partially loculated pneumothorax with near complete left
lower lobe atelectasis. No tension seen. Also a left upper lobe suspected pneumatocele. Considering patient is more symptomatic despite having a chest tube on negative suction at [id number], additional chest tube to be placed to see if this helps
her Sx.
Considering her left-sided air leak persists, she needs to be evaluated by thoracic surgery for pleurodesis - other option besides surgery is bronchoscopic valve placement; she is high risk for either of these procedures and I do not feel any loss
of lung function will be tolerated given her DLco was DLco of 27% in October 2021 (last PFT in 02/2023 shows DLco of 6% with DLco/VA 9% - unclear if this is legitimate though, may be falsely low)
Continue high-FiO2 oxygen to help resorb PTX --> avoid all positive pressure oxygen modalities (i.e., high flow, BiPAP) as the positive pressure will only worsen her PTX
Regarding the right PTX: Chest tube placed by me at bedside on 06/13, PTX appears almost fully resolved, and no air leak as of this AM (06/14). I put chest tube to water seal on AM of 06/14, and clamped in evening of 06/14. Continue to monitor and if
right PTX does not recur by tomorrow AM I will put the chest tube (right one).
I consulted CT surgery on 06/14 for their opinion on if any thoracic intervention can be done. Dr Robledo is only surgeon available who does non-cardiac surgery. He is unavailable until end of next week. If patient is still inpatient then he will
evaluate the patient at that jaylon. If pt not surgical candidate, pt and family will likely pursue hospice.
-
Maintain MAP>65
-
No evidence for infection at this point.
Tracheal aspirate with normal respiratory danielle� kwaku (likely contaminant and not pathological)
-
Decreased breath sounds bilaterally.
Continue systemic steroids; initially on dexamethasone�--> reduced on 06/11 from 4 mg IV q8 hours to 4mg IV q12hr (equivalent to 53mg prednisone) --> raised back to solumedrol 40mg IV q6hr on 06/13
Nebulizers-Pulmicort/DuoNebs.
Azithromycin for anti-inflammatory properties
Prior CT chest on 06/06 without pneumonia.� Normal respiratory danielle 06/05/2023 --> however looks like she may have aspirated as per CTA chest from 06/13, and her WBC is elevated (albeit also on steroids). I started Unasyn on 06/14 and will give 7 days
total assuming she remains afebrile for at least 48 hrs prior to stopping ABx. she may be hospice care by that point anyway.
Re-check blood Cx, check sputum Cx, legionella and Strep pneumo urine antigens are negative; MRSA swab is pending
Continue mucolytics with mucinex and mucomyst given with nebulized bronchodilators
Pain control; prn morphine for air hunger
-
Tolerating diet as long as not too SOB
-
Monitor blood sugars on high-dose of steroids --> yesterday I weaned down steroids to 40mg IV q8hr ---> tomorrow will wean to 40mg IV q12hr
Insulin sliding scale
Goal BG 140-180
-
DVT prophylaxis subcu Lovenox
PPI for GI prophylaxis
Continue IMU level of care (upgraded from tele on 06/13)
Pulmonary will continue to closely follow.
Data:
CTA Chest 06-13-2023:
1. No evidence of pulmonary embolism.
2. Moderate partially loculated left-sided pneumothorax with associated complete left lower lobe atelectasis. No overt tension. Consider possibility of chest tube dysfunction and/or bronchopleural fistula.
3. Probable pneumatocele development in the left upper lobe.
4. Scattered bronchial wall thickening and mucous plugging with possible superimposed aspiration pneumonia in the left lower lobe.
CXR 06-14-2023: Small to moderate right and small left basilar pneumothoraces with bilateral chest tubes in place. Similar appearance compared to the chest radiograph from 06/13/2023.
Subjective Data
-
Date of Service:
Date of Service: June 15, 2023
Chief Complaint: Pulmonary Follow Up
Subjective:
Patient seen this morning. CXR today shows a right-sided pleural effusion, and it appears that the right pneumothorax has completely resolved. Left pneumothorax is persistent and left-sided chest tube has a persistent level 1�3 airleak. Patient
feels well, she is on mid flow this morning after being on nonrebreather overnight. No acute events reported from overnight. and son at bedside -all questions were answered.
Review of Systems
General: Other (12 point ROS performed and is negative unless mentioned above.)
Objective Data
Data Reviewed
Vital Signs / I&O / Oxygen:
Vital Signs
Temp Pulse Resp BP Pulse Ox
98.2 F 121 19 119/71 93
06/15/23 11:26 06/15/23 14:00 06/15/23 14:00 06/15/23 14:00 06/15/23 14:00
Intake and Output
06/14/23 06/15/23 06/16/23
06:59 06:59 06:59
Intake Total 240 / 240 1155 / 1155 240 / 240
Output Total 1225 / 1225 960 / 960 700 / 700
Balance -985 / -985 195 / 195 -460 / -460
SaO2 [CPAP/PSV] 96
SaO2 [P-A/C] 96
SaO2 93
Nasal Cannula flow liters per 15
minute
Physical Exam
General: Respiratory Distress (negative) and Chills (negative)
HEENT: Normocephalic, Anicteric and Moist Mucous Membranes
Cardiovascular: S1-S2, Murmur (n), JVD, Peripheral Edema (n), Calf Tenderness (n) and Other (Tachycardic)
Respiratory: Wheeze (negative), Crackles (negative), Rhonchi (mainly on left hemithorax), Accessory Resp Muscle Use (positive, worsens with movement), Stridor (n), Chest Tube (Left hemithorax with persistent level 1-3 air leak; right chest tube
clamped) and Other (Grossly diminished breath sounds)
GI: Soft, Non Distended and Non Tender
Neurology: AO x 3 and No Motor Deficits
Skin: Warm and Dry
Labs/Micro/Reports
Lab Data
06/15/23 05:01
06/15/23 05:01
Microbiology
06/14/23 18:08 Urine Legionella Urinary Antigen - Final
Negative for Legionella pneumophila Serogroup 1 antigen.
A negative result does not rule out the possiblity of
Legionella infection due to other serogroups or species of
Legionella. Clinical correlation is recommended.
06/14/23 18:08 Urine Streptococcus pneumoniae Antigen (M - Final
Negative for Streptococcus pneumoniae antigen.
A negative result does not exclude infection with
Streptococcus pneumoniae. Clinical correlation is
recommended.
[2023-06-15] MEDS: LASIX 20 MG IV (10:48)
--- NOTE | 2023-06-15 10:59 | PTCARENOTE ---
Rec'd pt at 0700. Pt AAOx3, pleasant and cooperative. Follows commands, CORDOBA. Monitor SR/ST. Lungs dim on right, coarse on left. Right anterior chest tube with dressing C/D/I, no crepitus, clamped. Left lateral chest tube to -20cm suction. Dressing
C/D/I, no crepitus. +tidaling and air leak. Pt alternating from 100%NRB mask when resting to 15L midflow during meals. +BS, abd soft/nt. Ate 100% of breakfast. Voided 250ml yellow urine via bedpan.
[2023-06-15 11:09] LABS: Magnesium 2.3 mg/dl (1.6-2.3); Phosphorus 4.1 mg/dl (2.5-4.5)
--- NOTE | 2023-06-15 12:00 | PTCARENOTE ---
Pt with increased SOB after getting on and off bedpan, HR up 130's. C/o pain at right chest tube site. Dressing remains C/D/I, no crepitus. PRN Morphine given.
[2023-06-15] MEDS: MYCOSTATIN ORAL SUSPENSION PO (12:30)
[2023-06-15] MEDS: LOVENOX 40 MG SC (17:05)
--- NOTE | 2023-06-15 18:00 | PTCARENOTE ---
Pt with increased WOB, HR up to 150's. Pt stated that she also has to pee, unable to catch her breath in order to get on bedpan. Pt with difficulty voiding and retaining last few days. Spoke with , syed placed for retention.
[2023-06-15] MEDS: XOPENEX 1.25 MG INHALANT SOLUTION 0.630000000000000004 MG INH (19:48)
--- NOTE | 2023-06-15 21:35 | PTCARENOTE ---
Assumed care of pt at 1900. Pt is A/O x4, pleasant and cooperative with care. Received pt on 15L MFNC, and she has since transitioned to 100% NRB mask. SpO2 has been in high 90s-100%. Was ST low 100s-110s on monitor at start of shift, now HR is in
90s. PVCs and PACs noted. Right anterior chest tube remains clamped. Left lateral chest tube to wall suction and -15 on chest tube drainage system, air leak still noted, +2. Pt visibly short of breath at start of shift, SpO2 and RR were WNL but pt
had retractions and labored breathing. Morphine administered, see EMAR, pt verbalized that this did help her. Lung sounds are very diminished b/l, very little air movement on either side. Physical assessment completed, see nursing shift assessment
flowsheet for full details. Call marina and personal items within reach. Pt is currently IMU level of care.
[2023-06-15] MEDS: PRAVACHOL 20 MG PO (21:53)
[2023-06-15] MEDS: SINGULAIR 10 MG PO (21:53)
--- NOTE | 2023-06-15 22:13 | PTCARENOTE ---
Addendum entered by Silva Davey RN 06/15/23 23:06:
CXR done around 2220. Suction on chest tube drainage system turned back to -20cm at 2222 per ICU [facility]OR. Pt now resting with eyes closed, breathing not labored at this time, RR 23, SpO2 100% on 15L MF, HR in 90s (had been up to high 120s when pt was
more SOB).
Original Note:
Went into pt's room around 2200 to administer meds. Pt had been sleeping, easily awakened and sat up but became visibly more SOB. SpO2 and RR remain WNL but pt started with retractions again, visibly labored breathing. Productive cough noted and
audible congestion in upper airway, auscultated lung sounds again and still are very diminished. Chest tubes remain unchanged. Pt on NRB but switched to MFNC just because it feels more comfortable for her at this time. Discussed with Asim Lebron
WEATHERIZATION FIELD TECHNICIAN who came to bedside to evaluate pt. Stat CXR ordered at this time.
--- NOTE | 2023-06-15 22:30 | W.PN.UPDATE ---
Update Note
Progress Note Update
2200- Patient had worsening dyspnea despite dose of morphine, oxygen saturations mid 90s%, but appears more labored and more diminished on the left side. Will obtain chest xray on current suction -15 and will increase suction back up to -20.
[2023-06-16] VITALS (18 sets, daily range): BP systolic 83–126; BP diastolic 46–78; BMI 18.2
[2023-06-16] MEDS: MORPHINE SULFATE 1 MG IV ×6 (00:11→22:57)
[2023-06-16] MEDS: UNASYN IV ×5 (00:11→23:58)
[2023-06-16] MEDS: SOLU-MEDROL PF 40 MG IV ×3 (00:11→16:07)
--- NOTE | 2023-06-16 03:56 | PTCARENOTE ---
Pt awake around 0340, did AM labs at this time. Pt states that she feels comfortable. Breathing not as labored as earlier although pt does get easily winded when talking. SR 70s-80s on monitor, SpO2 97-100% on 15L MFNC, RR 15-20. Pt declined being
moved at this time because she is afraid she will not be able to get comfortable again. Chest tube assessments unchanged.
[2023-06-16 04:03] LABS: Hematocrit 30.2 % (37.0-47.0); Hemoglobin 10.1 g/dL (12.0-16.0); Mean Corp Hgb Conc. 33.4 g/dL (33.0-37.0); Mean Corpuscular Hgb 31.5 pg (27.0-31.0); Mean Corpuscular Volume 94.1 fL (81.0-99.0); Mean Platelet Volume 11.5 fL (7.4-10.4); Platelet Count 278 10^3/uL (130-400); Red Blood Cell Count 3.21 10^6/uL (4.20-5.40); Red Cell Dist. Width 12.8 % (11.5-14.5); White Blood Cell Count 26.3 10^3/uL (4.8-10.8)
[2023-06-16 04:27] LABS: Blood Urea Nitrogen 30 mg/dl (7-17); Calcium 8.2 mg/dl (8.4-10.2); Carbon Dioxide 29 mmol/L (22-30); Chloride 96 mmol/L (98-107); Estimated Creatinine Clearance 54 ml/min; Glucose 145 mg/dl (70-99); Potassium 4.6 mmol/L (3.5-5.1); Sodium 132 mmol/L (135-145); eGFR > 60.00
[2023-06-16] MEDS: SYNTHROID 50 MCG PO (06:30)
[2023-06-16] MEDS: ATROVENT NEBULES 0.5 MG INH ×3 (07:14→19:55)
[2023-06-16] MEDS: PULMICORT 0.5 MG INH ×2 (07:14→19:55)
[2023-06-16] MEDS: XOPENEX 1.25 MG INHALANT SOLUTION 0.630000000000000004 MG INH ×3 (07:15→19:55)
[2023-06-16] MEDS: MUCINEX 1200 MG PO ×2 (07:51→19:52)
[2023-06-16] MEDS: PEPCID 20 MG PO (07:51)
[2023-06-16] MEDS: ZESTRIL 30 MG PO (07:51)
[2023-06-16] MEDS: ZITHROMAX 250 MG PO (07:51)
[2023-06-16] MEDS: PROTONIX 40 MG PO (07:51)
[2023-06-16] MEDS: MYCOSTATIN ORAL SUSPENSION 5 ML PO ×4 (07:52→22:57)
[2023-06-16] MEDS: MIRALAX 17 GRAMS PO (07:52)
--- NOTE | 2023-06-16 08:22 | W.PN.HOSP.TC ---
Today's Communication/Plan
-
see A/P
Assessment / Plan
Assessment / Plan
HPI: 77y F with PMH significant for COPD and hypertension who presented to ED complaining of SOB.
A/P:
# Acute hypoxic and hypercapnic respiratory failure on admission due to spontaneous pneumothorax and severe COPD exacerbation POA
see below
# severe COPD exacerbation
s/p Emergent intubation in the ICU 06/07, Extubated 06/08
GI ppx with AUTOMATIC FOLDER SEAMER Pepcid and added IV Protonix
IV Decadron -> IV methylprednisolone
cont DuoNeb with levalbuterol, Azithromycin for COPD
Valet Parker/pulm on board
# Spontaneous L lung pneumothorax following intubation
# Spontaneous R lung pneumothorax
Status post emergent Left chest tube placement 06/07/2023
Status post emergent Right chest tube placement 06/13/2023
Valet Parker/Pulm on board, recc to AVOID positive pressure ventilation to avoid another pneumothorax or worsening of her current PTX, use high FiO2 oxygen delivery masks e.g. non-rebreather to help resorb the PTX.
Valet Parker discussed code status and hospice with pt and ; she is now limited code status- Ok to intubate but DNR.
Unasyn was started
blood Cx neg, urine Legionella/Strep Ag negative
pending MRSA screen
procal neg at 0.10
CT surgery consulted, surgical risk is extreme, and patient is not considered a candidate with current pulmonary function. Agree with ongoing discussion of hospice�if air leak does not resolve
# Likely compensated shock with positive pressure ventilation and sedation S/E, resolved
Off Levophed
# Mild hyponatremia
# Leucocytosis likely reactive
Unasyn was started. see above
# Acute urinary retention
Duran placed
# Benign Hypertension
BP stable off Levophed support
AUTOMATIC FOLDER SEAMER Lisinopril with holding parameter
Off AUTOMATIC FOLDER SEAMER Norvasc
# Hypothyroidism, Stable.�
Continue T4 supplementation.
DVT Prophylaxis: Lovenox SQ
Code Status: Now limited code status: Ok to intubate but DNR.
DW RN
Anticipated Discharge: > 48 hours
Subjective/Interval History
-
Date of Service: June 16, 2023
Objective Data
-
Labs:
Laboratory Results
06/16/23
03:41
WBC 26.3 H
Hgb 10.1 L
Hct 30.2 L
Plt Count 278
Sodium 132 L
Potassium 4.6
Chloride 96 L
Carbon Dioxide 29
BUN 30 H
Creatinine 0.6
Glucose 145 H
Calcium 8.2 L
Vital Signs:
Vital Signs
Temp Pulse Resp BP Pulse Ox
36.5 C 100 22 107/58 98
06/16/23 07:51 06/16/23 07:18 06/16/23 07:18 06/16/23 06:00 06/16/23 07:18
I&O
06/15/23 06/16/23 06/17/23
06:59 06:59 06:59
Intake Total 1155 / 1155 630 / 630
Output Total 960 / 960 1335 / 1335
Balance 195 / 195 -705 / -705
Review of Systems
-
Respiratory: Reports Trouble Breathing (improved )
Physical Exam
-
General: Well Developed, Comfortable, Respiratory Distress, Conversant and Appears Chronically Ill
HEENT: Oxygen (interchanging 15L midflow and NRB )
Respiratory: Chest Tubes (BL )
Cardiac: Regular Rhythm and S1/S2
GI: Soft, Nontender and Nondistended
Genito-urinary: Duran
Musculoskeletal: No Edema
Neuro: Awake
Psych: Calm and Intact Judgement/Insight
Data Reviewed
-
Diagnostic Radiology: Image personally visualized and interpreted and Report Reviewed by me
Labs: Labs Reviewed by me
--- NOTE | 2023-06-16 09:30 | W.PN.PUL3 ---
Today's Communication / Plan
-
IV steroids
Place right chest tube back to suction
Keep left chest tube to suction given it's PAL
Nebulizers with mucomyst
Abx for 7 day course
Eventual transition to waterseal once air leak is resolved on left. CT surgery consulted as options are surgery vs endobronchial valve placement. With her low DLco of <28% since 2019 and most recent PFT showed a DLco of 6%, it is contraindicated
for her to lose any additional lung function as this may not be compatible with life. Hence, hospice may be her best option if this air leak does not resolve. Dr. Robledo will see the patient at end of next week if pt still inpatient and not on
hospice yet at that time.
Assessment
-
77-year-old woman with history of COPD, initially admitted with acute exacerbation of COPD.� Emergently transferred to ICU on 06/07/2023 after developing acute onset shortness of breath.� Found to have a left-sided pneumothorax.� Chest tube was
placed.� Patient was intubated for hypercapnic respiratory failure.
Impression:
Acute hypercapnic respiratory failure due to severe exacerbation of COPD-transfer from floors 06/07/2023
Emergently intubated at the bedside in the ICU-06/07/2023 - extubated 06/08/2023
CT chest this admission: Severe emphysema.� No pneumonia.
Spontaneous secondary pneumothorax on the left c/b persistent air leak, appears loculated via CTA chest done 06/12/2023
Status post emergent chest tube placement 06/07/2023 but now with possible chest tube dysfunction either due to compression from partially re-expanded lung vs chest tube torsion --> repositioned by IR 06/13/2023
Right sided secondary pneumothorax (developed after returning from IR on 06/13/2023 after going down for L-sided chest tube re-positioning) s/p bedside chest tube clamped as of evening of 06/14
Conditions [employer]:
Very severe COPD (FEV1: 30%, DLco: 6% via PFT from 02/2023, decreased from DLco of 27% via PFT from 05/2018), on nocturnal and exertional home O2 at 2LPM, on trelegy, albuterol HFA/nebs, montelukast
Follows with Dr. Ahmadi
Air trapping also seen due to emphysema
HTN
Hypothyroidism
HLD
Assessment and plan:
On -, pt was was emergently intubated due to worsening shortness of breath-initially admitted for acute exacerbation of COPD.06/07/2023
Pt extubated the next day
-
Secondary spontaneous pneumothorax on the left and right
s/p bedside chest tube placement 06/07/2023.
Chest x-ray 06/09/2023: Persistent 5 to 10% basilar pneumothorax.
Regarding the left PTX: Airleak had initially improved earlier this week, but now it is persisting and she is more symptomatic. CT chest done yesterday shows a moderately sized left-sided partially loculated pneumothorax with near complete left
lower lobe atelectasis. No tension seen. Also a left upper lobe suspected pneumatocele. Considering patient is more symptomatic despite having a chest tube on negative suction at [id number], additional chest tube to be placed to see if this helps
her Sx.
Considering her left-sided air leak persists, she needs to be evaluated by thoracic surgery for pleurodesis - other option besides surgery is bronchoscopic valve placement; she is high risk for either of these procedures and I do not feel any loss
of lung function will be tolerated given her DLco was DLco of 27% in October 2021 (last PFT in 02/2023 shows DLco of 6% with DLco/VA 9% - unclear if this is legitimate though, may be falsely low)
Continue high-FiO2 oxygen to help resorb PTX --> avoid all positive pressure oxygen modalities (i.e., high flow, BiPAP) as the positive pressure will only worsen her PTX
Regarding the right PTX: Chest tube placed by me at bedside on 06/13, PTX appears almost fully resolved, and no air leak as of this AM (06/14). I put chest tube to water seal on AM of 06/14, and clamped in evening of 06/14. Considering she had
shortness of breath overnight and this morning CXR shows that her right pneumothorax has recurred, I will open up chest tube back to suction.
I consulted CT surgery on 06/14 for their opinion on if any thoracic intervention can be done. Dr Robledo is only surgeon available who does non-cardiac surgery. He is unavailable until end of next week. If patient is still inpatient then he will
evaluate the patient at that jaylon. If pt not surgical candidate, pt and family will likely pursue hospice.
-
Maintain MAP>65
-
No evidence for infection at this point.
Tracheal aspirate with normal respiratory danielle� kwaku (likely contaminant and not pathological)
-
Decreased breath sounds bilaterally.
Continue systemic steroids; initially on dexamethasone�--> reduced on 06/11 from 4 mg IV q8 hours to 4mg IV q12hr (equivalent to 53mg prednisone) --> raised back to solumedrol 40mg IV q6hr on 06/13
Nebulizers-Pulmicort/DuoNebs.
Azithromycin for anti-inflammatory properties
Prior CT chest on 06/06 without pneumonia.� Normal respiratory danielle 06/05/2023 --> however looks like she may have aspirated as per CTA chest from 06/13, and her WBC is elevated (albeit also on steroids). I started Unasyn on 06/14 and will give 7 days
total assuming she remains afebrile for at least 48 hrs prior to stopping ABx. she may be hospice care by that point anyway.
Re-check blood Cx, check sputum Cx, legionella and Strep pneumo urine antigens are negative; MRSA swab is pending
Continue mucolytics with mucinex and mucomyst given with nebulized bronchodilators
Pain control; prn morphine for air hunger
-
Tolerating diet as long as not too SOB
-
Monitor blood sugars on high-dose of steroids --> 2 days ago I weaned down steroids to 40mg IV q8hr ---> today will wean to 40mg IV q12hr
Insulin sliding scale
Goal BG 140-180
-
DVT prophylaxis subcu Lovenox
PPI for GI prophylaxis
Continue IMU level of care (upgraded from tele on 06/13)
Pulmonary will continue to closely follow.
Data:
CTA Chest 06-13-2023:
1. No evidence of pulmonary embolism.
2. Moderate partially loculated left-sided pneumothorax with associated complete left lower lobe atelectasis. No overt tension. Consider possibility of chest tube dysfunction and/or bronchopleural fistula.
3. Probable pneumatocele development in the left upper lobe.
4. Scattered bronchial wall thickening and mucous plugging with possible superimposed aspiration pneumonia in the left lower lobe.
CXR 06-16-2023: Compared to prior examination, there has been no significant interval change. Specifically, moderate right-sided pneumothorax is again noted, with a small right apical and larger right inferior pneumothorax. Hazy opacities again
demonstrated in the lower right hemithorax, likely reflecting the presence of pleural fluid.
CXR 06-14-2023: Small to moderate right and small left basilar pneumothoraces with bilateral chest tubes in place. Similar appearance compared to the chest radiograph from 06/13/2023.
Subjective Data
-
Date of Service:
Date of Service: June 16, 2023
Chief Complaint: Pulmonary Follow Up
Subjective:
Patient seen this morning. More short of breath overnight and left-sided chest tube was returned back to -20 cm water for suction. Right pleural effusion persist on morning x-ray with a moderate right-sided pneumothorax seen. Right-sided chest
tube was placed back onto suction.
When I saw the patient she was in no acute distress, eating breakfast, saying she feels well. Heart rate in the 80s. She denies chest pain currently, denies headache, fevers, chills.
Review of Systems
General: Other (12 point ROS performed and is negative unless mentioned above.)
Objective Data
Data Reviewed
Vital Signs / I&O / Oxygen:
Vital Signs
Temp Pulse Resp BP Pulse Ox
97.7 F 74 11 121/56 100
06/16/23 07:51 06/16/23 09:00 06/16/23 09:00 06/16/23 09:00 06/16/23 09:00
Intake and Output
06/15/23 06/16/23 06/17/23
06:59 06:59 06:59
Intake Total 1155 / 1155 630 / 630
Output Total 960 / 960 1335 / 1335
Balance 195 / 195 -705 / -705
SaO2 [CPAP/PSV] 96
SaO2 [P-A/C] 96
SaO2 100
Nasal Cannula flow liters per 15
minute
Physical Exam
General: Respiratory Distress (negative) and Chills (negative)
HEENT: Normocephalic, Anicteric and Moist Mucous Membranes
Cardiovascular: S1-S2, Murmur (n), JVD, Peripheral Edema (n), Calf Tenderness (n) and Other (Tachycardic)
Respiratory: Wheeze (negative), Crackles (negative), Rhonchi (mainly on left hemithorax), Accessory Resp Muscle Use (positive, worsens with movement), Stridor (n), Chest Tube (Left hemithorax with persistent level 1-3 air leak; right chest tube now
on -20 cmH2O with no persistent air leak seen) and Other (Grossly diminished breath sounds)
GI: Soft, Non Distended and Non Tender
Neurology: AO x 3 and No Motor Deficits
Skin: Warm and Dry
Labs/Micro/Reports
Lab Data
06/16/23 03:41
06/16/23 03:41
Microbiology
06/14/23 18:08 Nose MRSA Screen - Final
No Methicillin Resistant Staphylococcus aureus isolated.
06/14/23 18:08 Blood/Venous Blood Culture - Preliminary
No Growth in 24 hours- Final report to follow
06/14/23 18:08 Urine Legionella Urinary Antigen - Final
Negative for Legionella pneumophila Serogroup 1 antigen.
A negative result does not rule out the possiblity of
Legionella infection due to other serogroups or species of
Legionella. Clinical correlation is recommended.
06/14/23 18:08 Urine Streptococcus pneumoniae Antigen (M - Final
Negative for Streptococcus pneumoniae antigen.
A negative result does not exclude infection with
Streptococcus pneumoniae. Clinical correlation is
recommended.
--- NOTE | 2023-06-16 09:44 | PTCARENOTE ---
Rec'd pt at 0700. Pt AAOx3, follows commands, CORDOBA. Monitor SR. Lungs coarse on left, dim on right. +LAMBERT and orthopnea. Pox 100% on 100% NRB. Left chest tube to -20cm sx, +tidaling and air leak. Dressing C/D/I, no crepitus. Right chest tube remains
clamped, dressing C/D/I, no crepitus. +BS, abd soft/nt. Duran draining yellow urine.
--- NOTE | 2023-06-16 12:33 | PTCARENOTE ---
~1100 Dr. Mckeon unclamped right chest tube, placed to -20cm sx. For repeat PCXR in afternoon.
--- NOTE | 2023-06-16 17:00 | VATNOTE ---
MD order to remove PICC line. PICC line exchanged for Midline. PCN updated.
[2023-06-16] MEDS: LOVENOX 40 MG SC (17:46)
[2023-06-16] MEDS: PRAVACHOL 20 MG PO (22:57)
[2023-06-16] MEDS: SINGULAIR 10 MG PO (22:57)
--- NOTE | 2023-06-16 23:11 | PTCARENOTE ---
Assumed care of pt at 1900. Pt is A/O x4, pleasant and cooperative with care. Continues with left lateral chest tube to -20cm suction, air leak still present, +4. No crepitus. Dressing changed at approx 2230. Right anterior chest tube also to -20cm
suction. No airleak present, no crepitus. Sanguinous drainage noted, increased when pt moves. Pt alternating between wearing midflow NC at 15L or NRB. Has been SR 80s on monitor, will become more tachycardic into the 120s with exertion. Pt generally
has been much less dyspneic than last night, except for with exertion. Soap and water bed bath done, all linens changed at around 2300, this process did make pt more dyspneic but she was able to recover once lying still. Morphine 1mg IV given
afterwards (second dose this shift), see EMAR. See nursing shift assessment flowsheet for full physical assessment details. Call marina and personal items within reach.
[2023-06-17] VITALS (12 sets, daily range): BP systolic 95–129; BP diastolic 48–100; BMI 17.8
[2023-06-17] MEDS: MORPHINE SULFATE 1 MG IV ×6 (04:20→21:08)
[2023-06-17 04:44] LABS: Hematocrit 26.2 % (37.0-47.0); Hemoglobin 8.7 g/dL (12.0-16.0); Mean Corp Hgb Conc. 33.2 g/dL (33.0-37.0); Mean Corpuscular Hgb 32.3 pg (27.0-31.0); Mean Corpuscular Volume 97.4 fL (81.0-99.0); Mean Platelet Volume 11.8 fL (7.4-10.4); Platelet Count 262 10^3/uL (130-400); Red Blood Cell Count 2.69 10^6/uL (4.20-5.40); Red Cell Dist. Width 12.7 % (11.5-14.5); White Blood Cell Count 25.8 10^3/uL (4.8-10.8)
[2023-06-17] MEDS: SOLU-MEDROL PF 40 MG IV ×2 (05:04→16:43)
[2023-06-17] MEDS: SYNTHROID 50 MCG PO (05:04)
[2023-06-17] MEDS: UNASYN IV ×3 (05:04→18:27)
[2023-06-17 05:14] LABS: Blood Urea Nitrogen 28 mg/dl (7-17); Calcium 8.1 mg/dl (8.4-10.2); Carbon Dioxide 30 mmol/L (22-30); Chloride 98 mmol/L (98-107); Estimated Creatinine Clearance 53 ml/min; Glucose 108 mg/dl (70-99); Potassium 4.5 mmol/L (3.5-5.1); Sodium 134 mmol/L (135-145); eGFR > 60.00
[2023-06-17] MEDS: ATROVENT NEBULES 0.5 MG INH ×3 (07:23→19:49)
[2023-06-17] MEDS: PULMICORT 0.5 MG INH ×2 (07:23→19:51)
--- NOTE | 2023-06-17 07:24 | W.PN.INTV ---
Today's Communication / Plan
Recommendations
O2
Bilateral chest tubes
BDs
Atbs
CS
APAP, prn morphine IV
DNR
Assessment
-
77-year-old woman with history of COPD, initially admitted with acute exacerbation of COPD. Emergently transferred to ICU on 06/07/2023 after developing acute onset shortness of breath. Found to have a left-sided pneumothorax. Chest tube was
placed. Patient was intubated for hypercapnic respiratory failure.
Impression:
Acute hypercapnic respiratory failure due to severe exacerbation of COPD-transfer from floors 06/07/2023
Emergently intubated at the bedside in the ICU-06/07/2023 - extubated 06/08/2023
CT chest this admission: Severe emphysema. No pneumonia.
Spontaneous secondary pneumothorax on the left c/b persistent air leak, appears loculated via CTA chest done 06/12/2023
Status post emergent chest tube placement 06/07/2023 but now with possible chest tube dysfunction either due to compression from partially re-expanded lung vs chest tube torsion --> repositioned by IR 06/13/2023
Right sided secondary pneumothorax (developed after returning from IR on 06/13/2023 after going down for L-sided chest tube re-positioning) s/p bedside chest tube
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
Very severe COPD (FEV1: 30%, DLco: 6% via PFT from 02/2023, decreased from DLco of 27% via PFT from 05/2018), on nocturnal and exertional home O2 at 2LPM, on trelegy, albuterol HFA/nebs, montelukast
Follows with Dr. Ahmadi
Air trapping also seen due to emphysema
HTN
Hypothyroidism
HLD
Assessment and plan:
On 06/07/23, pt was was emergently intubated due to worsening shortness of breath-initially admitted for acute exacerbation of COPD.06/07/2023
Pt extubated the next day
-
Secondary spontaneous pneumothorax on the left and right
s/p bedside chest tube placement 06/07/2023 by IRad
Chest x-ray 06/09/2023: Persistent 5 to 10% basilar pneumothorax.
Regarding the left PTX: Airleak had initially improved earlier this week, but now it is persisting. CT chest 06-13 shows a moderately sized left-sided partially loculated pneumothorax with near complete left lower lobe atelectasis. No tension
seen. Also a left upper lobe suspected pneumatocele.
Considering her left-sided air leak persists, she needs to be evaluated by thoracic surgery for pleurodesis - other option besides surgery is bronchoscopic valve placement (not available at ); she is high risk for either of these procedures and
suspect any loss of lung function will be tolerated given her DLco was DLco of 27% in October 2021 (last PFT in 02/2023 shows DLco of 6% with DLco/VA 9% - unclear if this is legitimate though, may be falsely low)
Continue high-FiO2 oxygen to help resorb PTX --> avoid all positive pressure oxygen modalities (i.e., high flow, BiPAP) as the positive pressure will only worsen her PTX
Mild air leak
CXR 06-17 with bibasilar pntx
Regarding the right PTX: Chest tube placed by Dr Mckeon at bedside on 06/13, PTX improved initially and appeared almost fully resolved, and no air leak as of AM 06/14, put chest tube to water seal on AM of 06/14, and clamped in evening of 06/14,
pneumothorax recurred, suction resumed
Mild air leak present, CXR 06-17 with basilar pneumothorax
Consulted CT surgery on 06/14 for their opinion on if any thoracic intervention can be done. Dr Robledo is only surgeon available who does non-cardiac surgery. He is unavailable until end of next week.
Rediscussed very high risk of thoracic surgery and endobronchial valve placement (which is not available at ) in presence of her , DIL, granddaughter and EMERGENCY PLANNER on 06-17: she declines surgical or endoscopic interventions, she opted for DNR
status with continuation of conservative mgmt for now
-
Tracheal aspirate with normal respiratory danielle kwaku (likely contaminant and not pathological)
-
Decreased breath sounds bilaterally.
Continue systemic steroids; initially on dexamethasone --> reduced on 06/11 from 4 mg IV q8 hours to 4mg IV q12hr (equivalent to 53mg prednisone) --> raised back to solumedrol 40mg IV q6hr on 06/13
Nebulizers-Pulmicort/DuoNebs.
Azithromycin for anti-inflammatory properties, continue
Prior CT chest on 06/06 without pneumonia. Normal respiratory danielle 06/05/2023 --> however looks like she may have aspirated as per CTA chest from 06/13, and her WBC is elevated (albeit also on steroids). Started Unasyn on 06/14 and will give 7 days
total assuming she remains afebrile for at least 48 hrs prior to stopping ABx. she may be hospice care by that point anyway.
Re-checked blood Cx, check sputum Cx, legionella and Strep pneumo urine antigens: all are negative; MRSA swab negative
Continue mucolytics with mucinex and mucomyst given with nebulized bronchodilators
Pain control; prn morphine to continue given ongoing incisional pain
Added IV APAP at 1 g q6h
-
Tolerating diet as long as not too SOB
-
Monitor blood sugars on high-dose of steroids --> 2 days ago I weaned down steroids to 40mg IV q8hr ---> wean to 40mg IV q12hr 06-17
Insulin sliding scale
Goal BG 140-180
-
DVT prophylaxis subcu Lovenox
PPI for GI prophylaxis
Continue IMU level of care (upgraded from tele on 06/13)
Overall prognosis unfortunately guarded in setting of very severe COPD, bilateral persistent pneumothoraces and likely not candidacy for thoracic surgery and endobronchial valve placement
Code status: discussed with patient, , MARIA ISABEL, g-dgtr 06-17, decided for DNR
D/w MDT
Data:
CTA Chest 06-13-2023:
1. No evidence of pulmonary embolism.
2. Moderate partially loculated left-sided pneumothorax with associated complete left lower lobe atelectasis. No overt tension. Consider possibility of chest tube dysfunction and/or bronchopleural fistula.
3. Probable pneumatocele development in the left upper lobe.
4. Scattered bronchial wall thickening and mucous plugging with possible superimposed aspiration pneumonia in the left lower lobe.
CXR 06-16-2023: Compared to prior examination, there has been no significant interval change. Specifically, moderate right-sided pneumothorax is again noted, with a small right apical and larger right inferior pneumothorax. Hazy opacities again
demonstrated in the lower right hemithorax, likely reflecting the presence of pleural fluid.
CXR 06-14-2023: Small to moderate right and small left basilar pneumothoraces with bilateral chest tubes in place. Similar appearance compared to the chest radiograph from 06/13/2023.
Subjective Dataa
Subjective Data
Date of Service:
Date of Service: June 17, 2023
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
Subjective:
Bilateral chest tubes in place
Reports incisional pain
She decided for DNR with medical mgmt
Review of Systems
General: Fever (n), Sweats (n), Chills and Satisfactory Appetite
Cardiopulmonary: Dyspnea and Chest Pain (incisional)
GI: Abdominal Pain (n), Nausea and Vomiting
Neuro: Weakness
Objective Data
Data Reviewed
Vital Signs / I&O / Oxygen:
Vital Signs
Temp Pulse Resp BP Pulse Ox
97.6 F 75 21 126/57 100
06/17/23 05:05 06/17/23 06:00 06/17/23 06:00 06/17/23 06:00 06/17/23 02:00
Intake and Output
06/16/23 06/17/23 06/18/23
06:59 06:59 06:59
Intake Total 630 / 630 1100 / 1100
Output Total 1335 / 1335 1914 / 1914
Balance -705 / -705 -815 / -815
SaO2 [CPAP/PSV] 96
SaO2 [P-A/C] 96
SaO2 100
Nasal Cannula flow liters per 15
minute
Physical Exam
General: Comfortable and Chills (negative)
HEENT: Normocephalic and Anicteric
Cardiovascular: S1-S2, Regular Rhythm, Murmur (n), Peripheral Edema (negative) and Calf Tenderness
Respiratory: Wheeze (minimal during end-expiration), Crackles (negative), Rhonchi (negative), Accessory Resp Muscle Use (occasionally and worsened with coughing) and Chest Tube (bilateral: air leak +)
GI: Soft, Non Distended and Non Tender
Neurology: AO x 3 and No Motor Deficits
Skin: Warm, Dry and Jaundice (negative)
Labs/Micro/Reports
Lab Data
06/17/23 04:27
06/17/23 04:27
Microbiology
06/14/23 18:08 Blood/Venous Blood Culture - Preliminary
No Growth in 48 hours- Final report to follow
06/15/23 17:41 Sputum Gram Stain - Preliminary
06/14/23 18:08 Nose MRSA Screen - Final
No Methicillin Resistant Staphylococcus aureus isolated.
06/14/23 18:08 Urine Legionella Urinary Antigen - Final
Negative for Legionella pneumophila Serogroup 1 antigen.
A negative result does not rule out the possiblity of
Legionella infection due to other serogroups or species of
Legionella. Clinical correlation is recommended.
06/14/23 18:08 Urine Streptococcus pneumoniae Antigen (M - Final
Negative for Streptococcus pneumoniae antigen.
A negative result does not exclude infection with
Streptococcus pneumoniae. Clinical correlation is
recommended.
[2023-06-17] MEDS: XOPENEX 1.25 MG INHALANT SOLUTION 0.630000000000000004 MG INH ×3 (07:26→19:50)
--- NOTE | 2023-06-17 08:38 | CM ---
Patient seen at bedside. Patient confirmed that she is anticipating needing to go to a SNF or option with additional supports. Patient with bilateral chest tubes today per nursing and chart review. CM will continue to follow for discharge planing
needs.
Plan; SNF possible pending functional status
[2023-06-17] MEDS: MIRALAX 17 GRAMS PO (08:42)
[2023-06-17] MEDS: MUCINEX 1200 MG PO (08:43)
[2023-06-17] MEDS: PEPCID 20 MG PO (08:45)
[2023-06-17] MEDS: PROTONIX 40 MG PO (08:45)
[2023-06-17] MEDS: MYCOSTATIN ORAL SUSPENSION 5 ML PO ×4 (08:45→21:08)
[2023-06-17] MEDS: ZESTRIL 30 MG PO (08:46)
[2023-06-17] MEDS: ZITHROMAX 250 MG PO (08:47)
--- NOTE | 2023-06-17 09:00 | PTCARENOTE ---
Rec'd pt at 0800 awake alert and oriented resting in bed. Tearful this am- discussing about possibly wanting to go on Hospice and not wanting to have to put her family though a long illness. Also talked about possibly not wanting reintubation. Wants
to talk to her and family. Support given. BERYL. Admitted to a dull headache mostly from being upset. C/O 5/10 generalized achiness. Medicated at 0845 with Morphine 1 mg IV for pain. Skin is pale pink wm and dry. Respirs are shallow but
currently not labored. Does get LAMBERT. BS are decreased on the R and coarse/rhonchi on the L. R ant CT to -20 water suction. +1 air leak. No crepitus and draining sang drainage. L ant/lat CT to -20 water suction. +5 air leak- sometimes +7 with
tidaling. No crepitus. Dressing is D+I. Monitor ST. + pulses. No edema. VS as documented. Abd is soft with + BS. Encouraged to use the Miralax as she hasn't moved her bowels in several days. Duran intact for yellow urine. Capped Midline intact R
arm. Capped ints intact L hand and Larm. Repositioined. Call marina in reach. Breakfast ordered. Will monitor closely
--- NOTE | 2023-06-17 09:02 | W.PN.HOSP.TC ---
Today's Communication/Plan
-
await CT surgery input--apparently Dr. Robledo away this week
ongoing attempts to remove bilateral chest tubes
follow labs
Assessment / Plan
Assessment / Plan
pt is a 77 year old female
Acute hypoxic and hypercapnic respiratory failure on admission due to spontaneous pneumothorax and severe COPD exacerbation POA--s/p Emergent intubation in the ICU 06/07, Extubated 06/08--decadron to methylprednisolone--cont duonebs
Spontaneous L lung pneumothorax following intubation AND Spontaneous R lung pneumothorax--Status post emergent Left chest tube placement 06/07/2023--Status post emergent Right chest tube placement 06/13/2023--apprec practicing md anesthesiologist--avoid positive
pressure ventilation--Picture Framer discussed code status and hospice with pt and ; she is now limited code status- Ok to intubate but DNR.--cont unasyn, cultures neg--leukocytosis likely steroid induced--CT surgery consulted, surgical risk is
extreme, and patient is not considered a candidate with current pulmonary function. Agree with ongoing discussion of hospice�if air leak does not resolve
likely acute anemia due to blood from chest tube--trend H&H--consider transfusion
Likely compensated shock with positive pressure ventilation and sedation S/E, resolved--Off Levophed
Mild hyponatremia--follow
Acute urinary retention--Duran placed
Benign Hypertension--BP stable off Levophed support--cont DIATHERMY EQUIPMENT REPAIRER Lisinopril with holding parameter--Off DIATHERMY EQUIPMENT REPAIRER Norvasc
Hypothyroidism, Stable--Continue T4 supplementation.
DVT Prophylaxis: Lovenox SQ
Code Status: Now limited code status: Ok to intubate but DNR.
Anticipated Discharge: > 48 hours
Subjective/Interval History
-
Date of Service: June 17, 2023
pt having pain from chest tubes
Objective Data
-
Labs:
Laboratory Results
06/17/23
04:27
WBC 25.8 H
Hgb 8.7 L
Hct 26.2 L
Plt Count 262
Sodium 134 L
Potassium 4.5
Chloride 98
Carbon Dioxide 30
BUN 28 H
Creatinine 0.6
Glucose 108 H
Calcium 8.1 L
Vital Signs:
max temp for 24 hours
06/16/23
15:30
Temp 98.8 F
Vital Signs
Temp Pulse Resp BP Pulse Ox
96.9 F L 99 15 113/66 100
06/17/23 07:58 06/17/23 08:46 06/17/23 07:29 06/17/23 08:46 06/17/23 07:29
I&O
06/16/23 06/17/23 06/18/23
06:59 06:59 06:59
Intake Total 630 / 630 1100 / 1100
Output Total 1335 / 1335 191 / 1914
Balance -705 / -705 -815 / -815
Review of Systems
-
All other systems: Reviewed and negative
Physical Exam
-
General: Well Developed, Well Nourished and No Apparent Distress
HEENT: Atraumatic and Oxygen
Respiratory: Decreased Breath Sounds and Chest Tubes (bilateral)
Cardiac: Regular Rhythm and S1/S2; Negative Murmur
GI: Soft, Nontender, Nondistended and Normal Bowel Sounds
Musculoskeletal: No Clubbing, No Cyanosis and No Edema
Skin: Warm
Neuro: Awake
--- NOTE | 2023-06-17 10:00 | PTCARENOTE ---
States discomfort is eased after Morphine. Finishing breakfast.
--- NOTE | 2023-06-17 11:40 | PTCARENOTE ---
Remedicated with Morphine 1 mg IV for dyspnea and 4/10 discomfort.
--- NOTE | 2023-06-17 11:40 | PTCARENOTE ---
Remains resting. Visiting with family. Tearful relaying that she told her she did not want reintubation. Dr. Lara in and updated pt and family. Pt also relayed to Dr. Lara that she did not want reintubation if needed that she would just
want to be kept comfortable. Remains on 15L midlfow. sats are 95%. VS as documented. Chest tubes unchanged. Call marina in reach. Support given
[2023-06-17] MEDS: FLUSH (NSS) 1 FLUSH IV (12:18)
--- NOTE | 2023-06-17 13:30 | PTCARENOTE ---
Ate some lunch- Family in visiting. States earlier Morphine takes the edge off of the pain and eases breathing. Repositioned.
--- NOTE | 2023-06-17 15:00 | PTCARENOTE ---
Remedicated with Morphine 1 mg IV for generalized achiness but mostly R chest tube soreness. Turned and repositioned. Skin care given. Did own mouth care with help from . Call marina remains in reach. DNR bracelet applied and discussed plan of
care. Pt verbalizing that she is ok with the plan and not being reintubated or having CPR if the situation would come to that. Aware that for now we are following the chest xray and chest tubes. Call marina in reach
--- NOTE | 2023-06-17 16:10 | W.PN.UPDATE ---
Update Note
Progress Note Update
Patient continues to have bilateral air leaks (+1 on right and +3 on left). She will be unable to tolerate single lung ventilation. Therefore, patient continues to NOT be a surgical candidate. Dr. Robledo to see patient on Saturday
[2023-06-17] MEDS: OCEAN, SALINE MIST 2 SPRAYS NASAL (16:43)
[2023-06-17] MEDS: AYR SALINE NASAL GEL 1 APPLIC NASAL (16:44)
--- NOTE | 2023-06-17 17:20 | PTCARENOTE ---
Family at the bedside. Remedicated with Morphine 1 mg IV for 4/10 R chest soreness. Also medicated with [place] nasal spray and ayr ointment for dry nasal passages. Goes between 15 L midflow- moslty for eating and 100%v Non rebreather mask other times
[2023-06-17] MEDS: LOVENOX 40 MG SC (18:27)
[2023-06-17] MEDS: TYLENOL 1000 MG PO (18:27)
--- NOTE | 2023-06-17 21:00 | PTCARENOTE ---
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 R midline WNL. Sat 95% on NRB. R ant CT with bloody drainage, + small air leak, no crepitus noted. L lat CT with SS drainage, mod air leak, no crepitus. Duran draining yellow urine. POC discussed, call marina with
pt.
[2023-06-17] MEDS: PRAVACHOL 20 MG PO (21:08)
[2023-06-17] MEDS: SINGULAIR 10 MG PO (21:08)
[2023-06-18] VITALS (11 sets, daily range): BP systolic 97–165; BP diastolic 52–86; BMI 18.0
[2023-06-18] MEDS: UNASYN IV ×4 (00:19→18:33)
[2023-06-18] MEDS: TYLENOL 1000 MG PO ×4 (00:19→18:31)
[2023-06-18] MEDS: MORPHINE SULFATE 1 MG IV ×8 (00:20→21:59)
[2023-06-18] MEDS: SOLU-MEDROL PF 40 MG IV ×2 (05:00→15:30)
[2023-06-18] MEDS: SYNTHROID 50 MCG PO (05:26)
[2023-06-18 05:28] LABS: Hematocrit 23.5 % (37.0-47.0); Hemoglobin 7.9 g/dL (12.0-16.0); Mean Corp Hgb Conc. 33.6 g/dL (33.0-37.0); Mean Corpuscular Hgb 31.9 pg (27.0-31.0); Mean Corpuscular Volume 94.8 fL (81.0-99.0); Mean Platelet Volume 11.5 fL (7.4-10.4); Platelet Count 266 10^3/uL (130-400); Red Blood Cell Count 2.48 10^6/uL (4.20-5.40); Red Cell Dist. Width 12.8 % (11.5-14.5); White Blood Cell Count 20.3 10^3/uL (4.8-10.8)
[2023-06-18 06:21] LABS: ALT (SGPT) 24 U/L (0-35); AST (SGOT) 15 U/L (14-36); Albumin 2.2 g/dl (3.5-5.0); Alkaline Phosphatase 35 U/L (38-126); Blood Urea Nitrogen 23 mg/dl (7-17); Calcium 7.5 mg/dl (8.4-10.2); Carbon Dioxide 28 mmol/L (22-30); Chloride 101 mmol/L (98-107); Glucose 123 mg/dl (70-99); Magnesium 2.2 mg/dl (1.6-2.3); Potassium 4.5 mmol/L (3.5-5.1); Sodium 133 mmol/L (135-145); Total Bilirubin 0.5 mg/dl (0.2-1.3)
[2023-06-18 06:26] LABS: Estimated Creatinine Clearance 54 ml/min; eGFR > 60.00
[2023-06-18] MEDS: ATROVENT NEBULES 0.5 MG INH ×3 (07:27→19:58)
[2023-06-18] MEDS: XOPENEX 1.25 MG INHALANT SOLUTION 0.630000000000000004 MG INH ×2 (07:27→15:26)
[2023-06-18] MEDS: PULMICORT 0.5 MG INH ×2 (07:27→19:58)
--- NOTE | 2023-06-18 07:30 | W.PN.INTV ---
Today's Communication / Plan
Recommendations
Exchange R chest tube for pigtail cath
O2
BDs
Pain mgmt
Atb
Assessment
-
77-year-old woman with history of COPD, initially admitted with acute exacerbation of COPD. Emergently transferred to ICU on 06/07/2023 after developing acute onset shortness of breath. Found to have a left-sided pneumothorax. Chest tube was
placed. Patient was intubated for hypercapnic respiratory failure.
Impression:
Acute hypercapnic respiratory failure due to severe exacerbation of COPD-transfer from floors 06/07/2023
Emergently intubated at the bedside in the ICU-06/07/2023 - extubated 06/08/2023
CT chest this admission: Severe emphysema. No pneumonia.
Spontaneous secondary pneumothorax on the left c/b persistent air leak, appears loculated via CTA chest done 06/12/2023
Status post emergent chest tube placement 06/07/2023 but now with possible chest tube dysfunction either due to compression from partially re-expanded lung vs chest tube torsion --> repositioned by IR 06/13/2023
Right sided secondary pneumothorax (developed after returning from IR on 06/13/2023 after going down for L-sided chest tube re-positioning) s/p bedside chest tube
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
Very severe COPD (FEV1: 30%, DLco: 6% via PFT from 02/2023, decreased from DLco of 27% via PFT from 05/2018), on nocturnal and exertional home O2 at 2LPM, on trelegy, albuterol HFA/nebs, montelukast
Follows with Dr. Ahmadi
Air trapping also seen due to emphysema
HTN
Hypothyroidism
HLD
Assessment and plan:
On 06/07/23, pt was was emergently intubated due to worsening shortness of breath-initially admitted for acute exacerbation of COPD.06/07/2023
Pt extubated the next day
-
Secondary spontaneous pneumothorax on the left and right
s/p bedside L chest tube placement 06/07/2023 by IRad
Chest x-ray 06/09/2023: Persistent 5 to 10% basilar pneumothorax.
Regarding the left PTX: Airleak had initially improved earlier this week, but now it is persisting. CT chest 06-13 shows a moderately sized left-sided partially loculated pneumothorax with near complete left lower lobe atelectasis. No tension
seen. Also a left upper lobe suspected pneumatocele.
Considering her left-sided air leak persists, she needs to be evaluated by thoracic surgery for pleurodesis - other option besides surgery is bronchoscopic valve placement (not available at ); she is high risk for either of these procedures and
suspect any loss of lung function will be tolerated given her DLco was DLco of 27% in October 2021 (last PFT in 02/2023 shows DLco of 6% with DLco/VA 9% - unclear if this is legitimate though, may be falsely low)
Continue high-FiO2 oxygen to help resorb PTX --> avoid all positive pressure oxygen modalities (i.e., high flow, BiPAP) as the positive pressure will only worsen her PTX
Mild air leak
CXR 06-17 with bibasilar pntx
CXR 06-18 with increase R pntx and no change in small L basilar pntx
IRad consulted to exchange R chest tube 06-18 to a pigtail catheter
Regarding the right PTX: Chest tube placed by Dr Mckeon at bedside on 06/13, PTX improved initially and appeared almost fully resolved, and no air leak as of AM 06/14, put chest tube to water seal on AM of 06/14, and clamped in evening of 06/14,
pneumothorax recurred, suction resumed
Mild air leak present, CXR 06-17 with basilar pneumothorax
Consulted CT surgery on 06/14 for their opinion on if any thoracic intervention can be done. Dr Robledo is only surgeon available who does non-cardiac surgery. He will see patient on 06-19
Rediscussed very high risk of thoracic surgery and endobronchial valve placement (which is not available at ) in presence of her , DIL, granddaughter and CHARGE ACCOUNT CLERK on 06-17: she declines surgical or endoscopic interventions, she opted for DNR
status with continuation of conservative mgmt for now
-
Tracheal aspirate with normal respiratory danielle kwaku (likely contaminant and not pathological)
-
Decreased breath sounds bilaterally.
Continue systemic steroids; initially on dexamethasone --> reduced on 06/11 from 4 mg IV q8 hours to 4mg IV q12hr (equivalent to 53mg prednisone) --> raised back to solumedrol 40mg IV q6hr on 06/13. Currently at 40 mg IV q12
Nebulizers-Pulmicort, levalb/iprat tid and prn levalb.
Azithromycin for anti-inflammatory properties, continue
Prior CT chest on 06/06 without pneumonia. Normal respiratory danielle 06/05/2023 --> however looks like she may have aspirated as per CTA chest from 06/13, and her WBC is elevated (albeit also on steroids). Started Unasyn on 06/14 and will give 7 days
total assuming she remains afebrile for at least 48 hrs prior to stopping ABx. she may be hospice care by that point anyway.
Re-checked blood Cx, check sputum Cx, legionella and Strep pneumo urine antigens: all are negative; MRSA swab negative
Continue mucolytics with mucinex and mucomyst given with nebulized bronchodilators
Pain control for chest tubes induced pain; prn morphine to continue given ongoing incisional pain
Added IV APAP at 1 g q6h
Will add oral morphine ATC 06-18
-
Tolerating diet as long as not too SOB
-
Monitor blood sugars on high-dose of steroids
Insulin sliding scale
Goal BG 140-180
-
DVT prophylaxis subcu Lovenox
PPI for GI prophylaxis
Bowel regimen
Continue IMU level of care (upgraded from tele on 06/13)
Overall prognosis unfortunately guarded in setting of very severe COPD, bilateral persistent pneumothoraces and likely not candidacy for thoracic surgery and endobronchial valve placement
Code status: discussed with patient, , MARIA ISABEL, g-dgtr 06-17, decided for DNR
D/w MDT
Data:
CTA Chest 06-13-2023:
1. No evidence of pulmonary embolism.
2. Moderate partially loculated left-sided pneumothorax with associated complete left lower lobe atelectasis. No overt tension. Consider possibility of chest tube dysfunction and/or bronchopleural fistula.
3. Probable pneumatocele development in the left upper lobe.
4. Scattered bronchial wall thickening and mucous plugging with possible superimposed aspiration pneumonia in the left lower lobe.
CXR 06-16-2023: Compared to prior examination, there has been no significant interval change. Specifically, moderate right-sided pneumothorax is again noted, with a small right apical and larger right inferior pneumothorax. Hazy opacities again
demonstrated in the lower right hemithorax, likely reflecting the presence of pleural fluid.
CXR 06-14-2023: Small to moderate right and small left basilar pneumothoraces with bilateral chest tubes in place. Similar appearance compared to the chest radiograph from 06/13/2023.
Subjective Dataa
Subjective Data
Date of Service:
Date of Service: June 18, 2023
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
Subjective:
No major events reported
DNR as of 06-17
Bilateral chest tubes on suctioning, still with mild air leak
Review of Systems
General: Fever (n), Sweats (n), Chills and Satisfactory Appetite
HEENT: Epistaxis (n)
Cardiopulmonary: Dyspnea, Cough (trace), Sputum Production (n), Wheezing and Chest Pain (incisional)
GI: Abdominal Pain (n), Nausea (n) and Vomiting
Neuro: Weakness
Objective Data
Data Reviewed
Vital Signs / I&O / Oxygen:
Vital Signs
Temp Pulse Resp BP Pulse Ox
97.5 F 72 20 99/54 99
06/18/23 04:00 06/18/23 06:00 06/18/23 06:00 06/18/23 06:00 06/18/23 04:00
Intake and Output
06/17/23 06/18/23 06/19/23
06:59 06:59 06:59
Intake Total 1100 / 1100 890 / 890
Output Total 1915 / 1914
Balance -815 / -815 -1115 / -1115
SaO2 [CPAP/PSV] 96
SaO2 [P-A/C] 96
SaO2 99
Nasal Cannula flow liters per 15
minute
Physical Exam
General: Comfortable and Chills (negative)
HEENT: Normocephalic, Anicteric and Moist Mucous Membranes
Cardiovascular: S1-S2, Regular Rhythm, Murmur (n), Peripheral Edema (negative) and Calf Tenderness
Respiratory: Wheeze (minimal during end-expiration), Crackles (negative), Rhonchi (negative), Accessory Resp Muscle Use (occasionally and worsened with coughing) and Chest Tube (bilateral: air leak +, mild)
GI: Soft, Non Distended and Non Tender
Neurology: Awake, AO x 3 and No Motor Deficits
Skin: Warm, Dry and Jaundice (negative)
Labs/Micro/Reports
Lab Data
06/18/23 05:12
06/18/23 05:12
Microbiology
06/14/23 18:08 Blood/Venous Blood Culture - Preliminary
No Growth in 72 hours- Final report to follow
06/15/23 17:41 Sputum Respiratory Culture - Preliminary
Usual Respiratory Danielle
06/15/23 17:41 Sputum Gram Stain - Preliminary
06/14/23 18:08 Nose MRSA Screen - Final
No Methicillin Resistant Staphylococcus aureus isolated.
[2023-06-18] MEDS: PROTONIX 40 MG PO (08:24)
[2023-06-18] MEDS: MYCOSTATIN ORAL SUSPENSION 5 ML PO ×4 (08:24→21:37)
[2023-06-18] MEDS: ZITHROMAX 250 MG PO (08:24)
[2023-06-18] MEDS: MIRALAX 17 GRAMS PO (08:24)
[2023-06-18] MEDS: PEPCID 20 MG PO (08:24)
[2023-06-18] MEDS: ZESTRIL 30 MG PO (08:24)
--- NOTE | 2023-06-18 09:11 | CM ---
Patient seen at bedside with physician. Patient awaiting consult tomorrow and is planning to make further decisions about next steps tomorrow. CM will continue to follow for discharge planning needs.
Plan;TBD
--- NOTE | 2023-06-18 09:57 | W.PN.HOSP.TC ---
Today's Communication/Plan
-
await CT surgery eval
DNR
consider hospice after CT eval
Assessment / Plan
Assessment / Plan
pt is a 77 year old female
Acute hypoxic and hypercapnic respiratory failure on admission due to spontaneous pneumothorax and severe COPD exacerbation POA--s/p Emergent intubation in the ICU 06/07, Extubated 06/08--decadron to methylprednisolone--cont duonebs
Spontaneous L lung pneumothorax following intubation AND Spontaneous R lung pneumothorax--Status post emergent Left chest tube placement 06/07/2023--Status post emergent Right chest tube placement 06/13/2023--apprec principal technical specialist--avoid positive
pressure ventilation-- DNR--cont unasyn, cultures neg--leukocytosis likely steroid induced--CT surgery consulted, surgical risk is extreme, and patient is not considered a candidate with current pulmonary function. Agree with ongoing discussion of
hospice�if air leak does not resolve
likely acute anemia due to blood from chest tube--trend H&H--consider transfusion
Likely compensated shock with positive pressure ventilation and sedation S/E, resolved--Off Levophed
Mild hyponatremia--follow
Acute urinary retention--Duran placed
Benign Hypertension--BP stable off Levophed support--cont DIETARY MANAGER Lisinopril with holding parameter--Off DIETARY MANAGER Norvasc
Hypothyroidism, Stable--Continue T4 supplementation.
DVT Prophylaxis: Lovenox SQ
Code Status: DNR
Anticipated Discharge: > 48 hours
Subjective/Interval History
-
Date of Service: June 18, 2023
had discussion with pt re: GOC--she does not want to be intubated--waiting for CT surgery eval and considering hospice based on that eval
Objective Data
-
Labs:
Laboratory Results
06/18/23
05:12
WBC 20.3 H
Hgb 7.9 L
Hct 23.5 L
Plt Count 266
Sodium 133 L
Potassium 4.5
Chloride 101
Carbon Dioxide 28
BUN 23 H
Creatinine 0.6
Glucose 123 H
Calcium 7.5 L
Total Bilirubin 0.5
AST 15
ALT 24
Alkaline Phosphatase 35 L
Vital Signs:
max temp for 24 hours
06/17/23
11:30
Temp 98.7 F
Vital Signs
Temp Pulse Resp BP Pulse Ox
97.6 F 81 34 128/56 98
06/18/23 08:11 06/18/23 08:00 06/18/23 08:00 06/18/23 08:00 06/18/23 07:32
I&O
06/17/23 06/18/23 06/19/23
06:59 06:59 06:59
Intake Total 1100 / 1100 890 / 890 240 / 240
Output Total 1914 / 1914
Balance -815 / -815 -1115 / -1115 240 / 240
Review of Systems
-
All other systems: Reviewed and negative
Physical Exam
-
General: Well Developed, Well Nourished and No Apparent Distress
HEENT: Normocephalic, Atraumatic and Oxygen
Respiratory: Decreased Breath Sounds, Other (mild skin crepitus over left chest wall) and Chest Tubes
Cardiac: Regular Rhythm and S1/S2; Negative Murmur
GI: Soft, Nontender, Nondistended and Normal Bowel Sounds
Musculoskeletal: No Clubbing, No Cyanosis and No Edema
Skin: Warm
Neuro: Awake
--- NOTE | 2023-06-18 13:44 | PTCARENOTE ---
Addendum entered by Chinyere Smalls RN 06/18/23 16:23:
spoke with pt. Pt agreed. Pt transferred to IR.
Original Note:
Pt refusing chest tube exchange d/t cannot tolerate laying flat for procedure. Dr Lara and IR notified.
[2023-06-18] MEDS: XOPENEX 0.63 MG INHALANT SOLUTION 0.630000000000000004 MG INH ×2 (13:46→19:58)
[2023-06-18] MEDS: MORPHINE ORAL SOLUTION 10 MG PO ×3 (15:30→21:37)
[2023-06-18] MEDS: LOVENOX 30 MG SC (18:31)
--- NOTE | 2023-06-18 20:02 | PTCARENOTE ---
Assumed care of patient. Patient AOx3, family bedside. Pt on 10L midflow and NRB intermittently. Seems comfortable. Assessed patient, Chest tubes intact and hooked up to -20cm wall suction, air leaks present. Pt LAMBERT and SOB even with talking, PRN
morphine given, see MAR. Duran in place as well. Patient tachycardic but regular sounding, lungs diminished. + Bowel Sounds. Went over plan of care for tonight. Call marina within reach. No questions at this time. Will continue to monitor.
[2023-06-18] MEDS: SINGULAIR 10 MG PO (21:37)
[2023-06-18] MEDS: PRAVACHOL 20 MG PO (21:37)
[2023-06-19] VITALS (13 sets, daily range): BP systolic 92–131; BP diastolic 46–87
[2023-06-19] MEDS: TYLENOL 1000 MG PO ×5 (00:01→23:33)
[2023-06-19] MEDS: UNASYN IV ×5 (00:01→23:32)
[2023-06-19] MEDS: MORPHINE SULFATE 1 MG IV ×6 (00:02→20:11)
--- NOTE | 2023-06-19 00:37 | PTCARENOTE ---
Pt reassessed, no changes minus inadequate pain control-mostly from her right chest tube. Gave PRN morphine IV q 2 as ordered as well as 2200 dose of PO morphine, minimal relief. Notified COMPANY ACCOUNTANT covering, order placed for extra dose of 1 mg IV morphine.
Will continue to monitor.
[2023-06-19] MEDS: SOLU-MEDROL PF 40 MG IV ×2 (03:09→16:51)
[2023-06-19 04:10] LABS: Hematocrit 25.9 % (37.0-47.0); Hemoglobin 8.7 g/dL (12.0-16.0); Mean Corp Hgb Conc. 33.6 g/dL (33.0-37.0); Mean Corpuscular Hgb 32.1 pg (27.0-31.0); Mean Corpuscular Volume 95.6 fL (81.0-99.0); Mean Platelet Volume 11.7 fL (7.4-10.4); Platelet Count 321 10^3/uL (130-400); Red Blood Cell Count 2.71 10^6/uL (4.20-5.40); Red Cell Dist. Width 13.2 % (11.5-14.5); White Blood Cell Count 23.1 10^3/uL (4.8-10.8)
[2023-06-19 04:47] LABS: ALT (SGPT) 26 U/L (0-35); AST (SGOT) 20 U/L (14-36); Albumin 2.6 g/dl (3.5-5.0); Alkaline Phosphatase 41 U/L (38-126); Blood Urea Nitrogen 28 mg/dl (7-17); Calcium 8.1 mg/dl (8.4-10.2); Carbon Dioxide 30 mmol/L (22-30); Chloride 98 mmol/L (98-107); Estimated Creatinine Clearance 54 ml/min; Glucose 108 mg/dl (70-99); Magnesium 2.4 mg/dl (1.6-2.3); Potassium 4.5 mmol/L (3.5-5.1); Sodium 132 mmol/L (135-145); Total Bilirubin 0.6 mg/dl (0.2-1.3); Total Protein 4.7 g/dl (6.3-8.2); eGFR > 60.00
[2023-06-19] MEDS: SYNTHROID 50 MCG PO (05:11)
[2023-06-19] MEDS: ATROVENT NEBULES 0.5 MG INH ×3 (07:22→20:09)
[2023-06-19] MEDS: PULMICORT 0.5 MG INH ×2 (07:23→20:09)
[2023-06-19] MEDS: XOPENEX 0.63 MG INHALANT SOLUTION 0.630000000000000004 MG INH ×3 (07:23→20:09)
--- NOTE | 2023-06-19 07:53 | W.PN.INTV ---
Today's Communication / Plan
Recommendations
O2
Chest tubes mgmt
Atbs
BDs
Hospice
Assessment
-
77-year-old woman with history of COPD, initially admitted with acute exacerbation of COPD. Emergently transferred to ICU on 06/07/2023 after developing acute onset shortness of breath. Found to have a left-sided pneumothorax. Chest tube was
placed. Patient was intubated for hypercapnic respiratory failure.
Impression:
Acute hypercapnic respiratory failure due to severe exacerbation of COPD-transfer from floors 06/07/2023
Emergently intubated at the bedside in the ICU-06/07/2023 - extubated 06/08/2023
CT chest this admission: Severe emphysema. No pneumonia.
Spontaneous secondary pneumothorax on the left c/b persistent air leak, appears loculated via CTA chest done 06/12/2023
Status post emergent chest tube placement 06/07/2023 but now with possible chest tube dysfunction either due to compression from partially re-expanded lung vs chest tube torsion --> repositioned by IR 06/13/2023
Right sided secondary pneumothorax (developed after returning from IR on 06/13/2023 after going down for L-sided chest tube re-positioning) s/p bedside chest tube
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
Very severe COPD (FEV1: 30%, DLco: 6% via PFT from 02/2023, decreased from DLco of 27% via PFT from 05/2018), on nocturnal and exertional home O2 at 2LPM, on trelegy, albuterol HFA/nebs, montelukast
Follows with Dr. Ahmadi
Air trapping also seen due to emphysema
HTN
Hypothyroidism
HLD
Assessment and plan:
On 06/07/23, pt was was emergently intubated due to worsening shortness of breath-initially admitted for acute exacerbation of COPD.06/07/2023
Pt extubated the next day
-
Secondary spontaneous pneumothorax on the left and right
s/p bedside L chest tube placement 06/07/2023 by IRad
Chest x-ray 06/09/2023: Persistent 5 to 10% basilar pneumothorax.
Regarding the left PTX: Airleak had initially improved earlier this week, but now it is persisting. CT chest 06-13 shows a moderately sized left-sided partially loculated pneumothorax with near complete left lower lobe atelectasis. No tension
seen. Also a left upper lobe suspected pneumatocele.
Considering her left-sided air leak persists, she needs to be evaluated by thoracic surgery for pleurodesis - other option besides surgery is bronchoscopic valve placement (not available at ); she is high risk for either of these procedures and
suspect any loss of lung function will be tolerated given her DLco was DLco of 27% in October 2021 (last PFT in 02/2023 shows DLco of 6% with DLco/VA 9% - unclear if this is legitimate though, may be falsely low)
Continue high-FiO2 oxygen to help resorb PTX --> avoid all positive pressure oxygen modalities (i.e., high flow, BiPAP) as the positive pressure will only worsen her PTX
Still with positive leak
CXR 06-17 with bibasilar pntx
CXR 06-18 with increase R pntx and no change in small L basilar pntx
IRad consulted to exchange R chest tube 06-18, placed with no issue
Regarding the right PTX: Chest tube placed by Dr Mckeon at bedside on 06/13, PTX improved initially and appeared almost fully resolved, and no air leak as of AM 06/14, put chest tube to water seal on AM of 06/14, and clamped in evening of 06/14,
pneumothorax recurred, suction resumed
CXR 06-19: residual bilateral very small pntxs
Consulted CT surgery on 06/14 for their opinion on if any thoracic intervention can be done. Dr Robledo is only surgeon available who does non-cardiac surgery.
Seen by Dr Robledo 06-19, no candidate for surgery given severe COPD
She opted for DNR status this adm, decided for hospice 06-19, d/w Dr Emmanuel
Tracheal aspirate with normal respiratory danielle kwaku (likely contaminant and not pathological)
-
Decreased breath sounds bilaterally.
Continue systemic steroids; initially on dexamethasone --> reduced on 06/11 from 4 mg IV q8 hours to 4mg IV q12hr (equivalent to 53mg prednisone) --> raised back to solumedrol 40mg IV q6hr on 06/13. Currently at 40 mg IV q12
Nebulizers-Pulmicort, levalb/iprat tid and prn levalb.
Azithromycin for anti-inflammatory properties, continue
Prior CT chest on 06/06 without pneumonia. Normal respiratory danielle 06/05/2023 --> however looks like she may have aspirated as per CTA chest from 06/13, and her WBC is elevated (albeit also on steroids). Started Unasyn on 06/14 and will give 7 days
total assuming she remains afebrile for at least 48 hrs prior to stopping ABx
Re-checked blood Cx, check sputum Cx, legionella and Strep pneumo urine antigens: all are negative; MRSA swab negative
Continue nebulized bronchodilators
Pain control for chest tubes induced pain; prn morphine to continue given ongoing incisional pain
Added IV APAP at 1 g q6h
Added oral morphine ATC 06-18, monitor response
-
Tolerating diet as long as not too SOB
-
Monitor blood sugars on high-dose of steroids
Insulin sliding scale
Goal BG 140-180
-
DVT prophylaxis subcu Lovenox
PPI for GI prophylaxis
Bowel regimen
Continue IMU level of care (upgraded from tele on 06/13)
Code status: discussed with patient, , MARIA ISABEL, g-dgtr 06-17, decided for DNR
Decided for hospice care 06-19
D/w MDT
Data:
CTA Chest 06-13-2023:
1. No evidence of pulmonary embolism.
2. Moderate partially loculated left-sided pneumothorax with associated complete left lower lobe atelectasis. No overt tension. Consider possibility of chest tube dysfunction and/or bronchopleural fistula.
3. Probable pneumatocele development in the left upper lobe.
4. Scattered bronchial wall thickening and mucous plugging with possible superimposed aspiration pneumonia in the left lower lobe.
CXR 06-16-2023: Compared to prior examination, there has been no significant interval change. Specifically, moderate right-sided pneumothorax is again noted, with a small right apical and larger right inferior pneumothorax. Hazy opacities again
demonstrated in the lower right hemithorax, likely reflecting the presence of pleural fluid.
CXR 06-14-2023: Small to moderate right and small left basilar pneumothoraces with bilateral chest tubes in place. Similar appearance compared to the chest radiograph from 06/13/2023.
Subjective Dataa
Subjective Data
Date of Service:
Date of Service: June 19, 2023
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
Subjective:
Right chest tube replaced yesterday
No candidate for surgical intervention per assessment of the Dr. Robledo
Patient decided to embrace hospice care today
Review of Systems
General: Fever (n), Sweats (n), Chills (n) and Satisfactory Appetite (n)
HEENT: Dysphagia (n)
Cardiopulmonary: Dyspnea, Cough, Wheezing (n) and Chest Pain (incisional)
GI: Abdominal Pain (n), Nausea (n) and Vomiting
Neuro: Weakness
Objective Data
Data Reviewed
Vital Signs / I&O / Oxygen:
Vital Signs
Temp Pulse Resp BP Pulse Ox
97.7 F 96 16 127/64 97
06/19/23 07:47 06/19/23 07:24 06/19/23 07:24 06/19/23 06:00 06/19/23 07:24
Intake and Output
06/18/23 06/19/23 06/20/23
06:59 06:59 06:59
Intake Total 890 / 890 680 / 680
Output Total 2004 1840 / 1840
Balance -1115 / -1115 -1160 / -1160
SaO2 [CPAP/PSV] 96
SaO2 [P-A/C] 96
SaO2 97
Nasal Cannula flow liters per 10
minute
Physical Exam
General: Comfortable and Chills (negative)
HEENT: Normocephalic, Anicteric and Moist Mucous Membranes
Cardiovascular: S1-S2, Regular Rhythm, Murmur (n), Peripheral Edema (negative) and Calf Tenderness
Respiratory: Wheeze (minimal during end-expiration), Crackles (negative), Rhonchi (negative), Accessory Resp Muscle Use (occasionally and worsened with coughing) and Chest Tube (bilateral: air leak +)
GI: Soft, Non Distended and Non Tender
Neurology: Awake, AO x 3 and No Motor Deficits
Skin: Warm, Dry and Jaundice (negative)
Labs/Micro/Reports
Lab Data
06/19/23 03:55
06/19/23 03:55
Microbiology
06/14/23 18:08 Blood/Venous Blood Culture - Preliminary
No Growth in 4 days- Final report to follow
06/15/23 17:41 Sputum Respiratory Culture - Final
Usual Respiratory Danielle
06/15/23 17:41 Sputum Gram Stain - Final
06/14/23 18:08 Nose MRSA Screen - Final
No Methicillin Resistant Staphylococcus aureus isolated.
[2023-06-19] MEDS: PEPCID 20 MG PO (08:16)
[2023-06-19] MEDS: ZESTRIL 30 MG PO (08:16)
[2023-06-19] MEDS: ZITHROMAX 250 MG PO (08:16)
[2023-06-19] MEDS: MORPHINE ORAL SOLUTION 10 MG PO ×4 (08:16→22:10)
[2023-06-19] MEDS: PROTONIX 40 MG PO (08:16)
[2023-06-19] MEDS: MYCOSTATIN ORAL SUSPENSION 5 ML PO ×3 (08:16→22:10)
[2023-06-19] MEDS: MIRALAX PO ×2 (08:17→10:48)
--- NOTE | 2023-06-19 09:00 | PTCARENOTE ---
Rec'd pt at 0800 awake alert and oriented resting in bed. A little tearful this am- when showing me a picture of her daughter in [facility] and talking about a stepdaughter coming from [place] and the reality that she is not going to be
getting better. Cardio-Thoracic surgery in to see pt this am and had discussed per pt that surgery was not an option for her. Dr. Benitez in and Hospice consulted. Support given as pt states she just wants her and family. Skin is pale wm
and dry. Pt does admit to 5/10 R lateral chest soreness- scheduled dose of po Morphine given. Respirs are shallow and at times with talking tachypnic. Pt definately more winded with talking. Goes between 100% NRB mask and 15 L midflow cannula.
Currently on the midflow at 15L. BS are in general decreased throughout and coarse. R lat CT to -20 cm water suction. +4 air leak. No crepitus, draining sang drainage. L ant/lat CT to -20 cm water suction. +1 air leak. No crepitus. Draining serosang
drainage. Dressings intact bilaterally. VS as documented. Monitor SR-ST with PAC's. + pulses. No edema. Abd is round and soft with + BS. No stools and pt refused the Miralax this am. Informed of the concern of her getting uncomfortable from not
moving her bowels and getting Morphine-but stating 'whats the use'. Duran intact for yellow urine. R arm midline intact as well as L hand and L AC all sites wnl. Repositioned. Working on breakfast. Call marina in reach. Plan of care reviewed.
at the bedside currently
--- NOTE | 2023-06-19 09:04 | CM ---
Patient seen at bedside, plan for hospice per physician, VN management liaison consulted. CM will send referral via all scripts.
Plan; hospice assessment
--- NOTE | 2023-06-19 09:12 | W.PN.HOSP.TC ---
Today's Communication/Plan
-
consult hospice
Assessment / Plan
Assessment / Plan
pt is a 77 year old female
Acute hypoxic and hypercapnic respiratory failure on admission due to spontaneous pneumothorax and severe COPD exacerbation POA--s/p Emergent intubation in the ICU 06/07, Extubated 06/08--decadron to methylprednisolone--cont duonebs
Spontaneous L lung pneumothorax following intubation AND Spontaneous R lung pneumothorax--Status post emergent Left chest tube placement 06/07/2023--Status post emergent Right chest tube placement 06/13/2023--apprec philosophy lecturer--avoid positive
pressure ventilation-- DNR--cont unasyn, cultures neg--leukocytosis likely steroid induced--CT surgery consulted, surgical risk is extreme, and patient is not considered a candidate--pt agreeable to hospice, consult placed
likely acute anemia due to blood from chest tube--trend H&H--consider transfusion
Likely compensated shock with positive pressure ventilation and sedation S/E, resolved--Off Levophed
Mild hyponatremia--follow
Acute urinary retention--Duran placed
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
Hypothyroidism, Stable--Continue T4 supplementation.
DVT Prophylaxis: Lovenox SQ
Code Status: DNR
Anticipated Discharge: > 48 hours
Subjective/Interval History
-
Date of Service: June 19, 2023
pt spoke with Dr. Robledo, she is not a surgical candidate, agreeable to hospice
Objective Data
-
Labs:
Laboratory Results
06/19/23
03:55
WBC 23.1 H
Hgb 8.7 L
Hct 25.9 L
Plt Count 321 D
Sodium 132 L
Potassium 4.5
Chloride 98
Carbon Dioxide 30
BUN 28 H
Creatinine 0.6
Glucose 108 H
Calcium 8.1 L
Total Bilirubin 0.6
AST 20
ALT 26
Alkaline Phosphatase 41
Vital Signs:
max temp for 24 hours
06/18/23
19:30
Temp 98.1 F
Vital Signs
Temp Pulse Resp BP Pulse Ox
97.7 F 101 16 114/47 97
06/19/23 07:47 06/19/23 08:16 06/19/23 07:24 06/19/23 08:16 06/19/23 07:24
I&O
06/18/23 06/19/23 06/20/23
06:59 06:59 06:59
Intake Total 890 / 890 680 / 680
Output Total 2004 1840 / 1840
Balance -1115 / -1115 -1160 / -1160
Review of Systems
-
All other systems: Reviewed and negative
Physical Exam
-
General: Well Developed, Well Nourished and No Apparent Distress
HEENT: Normocephalic, Atraumatic and Oxygen
Respiratory: Decreased Breath Sounds and Chest Tubes
Cardiac: Regular Rhythm and S1/S2; Negative Murmur
GI: Soft, Nontender, Nondistended and Normal Bowel Sounds
Musculoskeletal: No Clubbing, No Cyanosis and No Edema
Skin: Warm
Neuro: Awake
--- NOTE | 2023-06-19 09:14 | HOSPNOTE ---
Addendum entered by Marcella Hernandez RN 06/19/23 11:28:
Spoke with family and patient at length about hospice services and the philosophy. The patient stated there is one daughter coming from [place] this evening and she would like me to touch base with them tomorrow. The patient expressed some fear
about feeling so short of breath if we clamp the chest tubes. I told the patient we will make sure that she has enough medications to be comfortable and not short of breath. Will follow up tomorrow. I left my contact information with patient and
family if they have any further questions. Gave report and update to floor ROSE Madrigal.
Original Note:
Hospice referral received. More information to follow.
[2023-06-19] MEDS: MORPHINE SULFATE 2 MG IV ×2 (10:54→14:59)
--- NOTE | 2023-06-19 10:55 | PTCARENOTE ---
Family in visiting. warp dyeing vat tender in to see pt- see note. Awaiting step daughter from [place]. at the bedside. Repositioned. Remedicated with Morphine 2 mg IV for 7/[address] site soreness/pain.
[2023-06-19] MEDS: FLUSH (NSS) 1 FLUSH IV ×2 (10:56→12:28)
--- NOTE | 2023-06-19 11:07 | W.PN.UPDATE ---
Update Note
Progress Note Update
I had a long discussion this morning with Mrs. Richardson. She understood what was going on as well as the significant consequences associate with lung surgery. She says that she does not want any operations or intubation. She understands that with
the persistent significant 3+ airleak on the right and 1+ airleak on the left, that there was likely no way to safely transition her to a Heimlich valve. She also understands that given her significant emphysema and poor pulmonary perfusion, she is
at high risk for complication and . She tells me that she would like to pursue the hospice route once her grand niece arrived in town. I believe that this is reasonable and that she has thought out her disease process for quite some time and
was aware that she would eventually succumb to her severe COPD. At this time, she is not a surgical candidate and our CT service will sign off.
Thank you for involving me in the care of this patient. Please feel free to contact me with any questions or concerns.
Tavon Robledo MD, MS
Cardiothoracic Surgeon
[facility]
This dictation was created using the Vserv dictation system. Please excuse any grammatical, typographical, or 'sound alike' errors.
--- NOTE | 2023-06-19 12:00 | PTCARENOTE ---
Repositioned. Wants to wait until after lunch to do skin care. States earlier Morphine eases the discomfort in the R chest. Chest tubes unchanged. Family at the bedside.
[2023-06-19] MEDS: OCEAN, SALINE MIST 2 SPRAYS NASAL (12:35)
[2023-06-19] MEDS: AYR SALINE NASAL GEL 1 APPLIC NASAL (12:36)
[2023-06-19] MEDS: MYCOSTATIN ORAL SUSPENSION PO (13:45)
--- NOTE | 2023-06-19 15:30 | PTCARENOTE ---
Remedicated at 1500 with Morphine 2 mg IV and then complete CHG bath given. Hair washed Linens changed. Repositioned. Currently goes between 100% NRB and will try pt on 12L midflow. Pt states she feels better. Repositioned. Chest tubes are
essentially unchanged. No crepitus noted. Dressings are D+I. +3-4 air leak on the R and +1 L. Duran draining yellow urine. Will continue to monitor.
[2023-06-19] MEDS: LOVENOX 30 MG SC (18:10)
--- NOTE | 2023-06-19 18:41 | PTCARENOTE ---
Good appetite for dinner. Visiting with family. No other changes
--- NOTE | 2023-06-19 20:13 | PTCARENOTE ---
Received patient AAOx3, following commands, complaining of pain at right chest tube site. Gave prn morphine for moderate pain. Normal sinus, 80s with PACs. BP 90s-100s/50-60s. Palpable radial pulses bilaterally, weak palpable pedal pulses
bilaterally. On nonrebreather and midflow interchangeably. Saturating 100%. Right and left anterior/lateral chest tubes, both to -20 suction. Right chest tube +3 air leak, left chest tube +1 air leak. Dressings CDI, no drainage. Lung sounds coarse
and diminished throughout. Abdomen soft, round, no bowel movement for 6 days, constipated. Patient had miralax during day shift. Duran for end of life care, patient transitioning to hospice. Midline and PIV WNL. Hourly rounding and patient safety
checks ongoing.
[2023-06-19] MEDS: SINGULAIR 10 MG PO (22:10)
[2023-06-19] MEDS: PRAVACHOL 20 MG PO (22:10)
[2023-06-20] VITALS (12 sets, daily range): BP systolic 97–132; BP diastolic 46–99
[2023-06-20] MEDS: TYLENOL 1000 MG PO ×3 (05:27→17:27)
[2023-06-20] MEDS: SOLU-MEDROL PF 40 MG IV (05:27)
[2023-06-20] MEDS: UNASYN IV ×3 (05:27→17:27)
[2023-06-20] MEDS: SYNTHROID 50 MCG PO (06:09)
[2023-06-20] MEDS: XOPENEX 0.63 MG INHALANT SOLUTION INH ×2 (07:50→15:01)
[2023-06-20] MEDS: ATROVENT NEBULES INH ×2 (07:50→15:01)
[2023-06-20] MEDS: PULMICORT INH (07:50)
--- NOTE | 2023-06-20 07:53 | W.PN.PUL3 ---
Today's Communication / Plan
-
O2
Bilat ch tube mgmt
BDs
Atbs
CS
Pending hospice consult
Assessment
-
77-year-old woman with history of COPD, initially admitted with acute exacerbation of COPD.� Emergently transferred to ICU on 06/07/2023 after developing acute onset shortness of breath.� Found to have a left-sided pneumothorax.� Chest tube was
placed.� Patient was intubated for hypercapnic respiratory failure.
Impression:
Acute hypercapnic respiratory failure due to severe exacerbation of COPD-transfer from floors 06/07/2023
Emergently intubated at the bedside in the ICU-06/07/2023 - extubated 06/08/2023
CT chest this admission: Severe emphysema.� No pneumonia.
Spontaneous secondary pneumothorax on the left c/b persistent air leak, appears loculated via CTA chest done 06/12/2023
Status post emergent chest tube placement 06/07/2023 but now with possible chest tube dysfunction either due to compression from partially re-expanded lung vs chest tube torsion --> repositioned by IR 06/13/2023
Right sided secondary pneumothorax (developed after returning from IR on 06/13/2023 after going down for L-sided chest tube re-positioning) s/p bedside chest tube clamped as of evening of 06/14
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
Very severe COPD (FEV1: 30%, DLco: 6% via PFT from 02/2023, decreased from DLco of 27% via PFT from 05/2018), on nocturnal and exertional home O2 at 2LPM, on trelegy, albuterol HFA/nebs, montelukast
Follows with Dr. Ahmadi
Air trapping also seen due to emphysema
HTN
Hypothyroidism
HLD
Assessment and plan:
On -, pt was was emergently intubated due to worsening shortness of breath-initially admitted for acute exacerbation of COPD.06/07/2023
Pt extubated the next day
-
Secondary spontaneous pneumothorax on the left and right
s/p bedside chest tube placement 06/07/2023.
Chest x-ray 06/09/2023: Persistent 5 to 10% basilar pneumothorax.
CT chest with moderately sized left-sided partially loculated pneumothorax with near complete left lower lobe atelectasis. No tension seen. Also a left upper lobe suspected pneumatocele. Considering patient is more symptomatic despite having a
chest tube on negative suction at [id number], additional chest tube to be placed to see if this helps her Sx.
Considering her left-sided air leak persists, she needs to be evaluated by thoracic surgery for pleurodesis - other option besides surgery is bronchoscopic valve placement; she is high risk for either of these procedures and I do not feel any loss
of lung function will be tolerated given her DLco was DLco of 27% in October 2021 (last PFT in 02/2023 shows DLco of 6% with DLco/VA 9% - unclear if this is legitimate though, may be falsely low)
Continue high-FiO2 oxygen to help resorb PTX --> avoid all positive pressure oxygen modalities (i.e., high flow, BiPAP) as the positive pressure will only worsen her PTX
Regarding the right PTX: Chest tube placed by me at bedside on 06/13, PTX appears almost fully resolved, and no air leak as of this AM (06/14). I put chest tube to water seal on AM of 06/14, and clamped in evening of 06/14. Considering she had
shortness of breath overnight and this morning CXR shows that her right pneumothorax has recurred
Consulted CT surgery on 06/14 for their opinion on if any thoracic intervention can be done.
Seen by Dr Robledo 06-19, no candidate for surgery, patient and family aware
Patient changed code status to DNR/DNI, she wants to embrace comfort care, hospice consulted
Tracheal aspirate with normal respiratory danielle� kwaku (likely contaminant and not pathological)
-
Decreased breath sounds bilaterally.
Continue systemic steroids; initially on dexamethasone�--> reduced on 06/11 from 4 mg IV q8 hours to 4mg IV q12hr (equivalent to 53mg prednisone) --> raised back to solumedrol 40mg IV q6hr on 06/13, slowly tapering down, change to pred 40 mg qd
starting 06-21 and taper by 10 mg q2d to off
Nebulizers-Pulmicort/levalb n tid (changed to prn 06-20).
Azithromycin for anti-inflammatory properties
Prior CT chest on 06/06 without pneumonia.� Normal respiratory danielle 06/05/2023 --> however looks like she may have aspirated as per CTA chest from 06/13, and her WBC is elevated (albeit also on steroids). Started Unasyn on 06/14 and will give 7 days
total assuming she remains afebrile for at least 48 hrs prior to stopping ABx.
Re-check blood Cx, check sputum Cx, legionella and Strep pneumo urine antigens are negative; MRSA swab is pending
Continue mucolytics with mucinex and mucomyst given with nebulized bronchodilators
Pain control; prn morphine for air hunger
-
Tolerating diet as long as not too SOB
-
Monitor blood sugars on high-dose of steroids -->
Insulin sliding scale
Goal BG 140-180
-
DVT prophylaxis subcu Lovenox
PPI for GI prophylaxis
Continue IMU level of care (upgraded from tele on 06/13)
Pulmonary will continue to follow.
Data:
CTA Chest 06-13-2023:
1. No evidence of pulmonary embolism.
2. Moderate partially loculated left-sided pneumothorax with associated complete left lower lobe atelectasis. No overt tension. Consider possibility of chest tube dysfunction and/or bronchopleural fistula.
3. Probable pneumatocele development in the left upper lobe.
4. Scattered bronchial wall thickening and mucous plugging with possible superimposed aspiration pneumonia in the left lower lobe.
CXR 06-16-2023: Compared to prior examination, there has been no significant interval change. Specifically, moderate right-sided pneumothorax is again noted, with a small right apical and larger right inferior pneumothorax. Hazy opacities again
demonstrated in the lower right hemithorax, likely reflecting the presence of pleural fluid.
CXR 06-14-2023: Small to moderate right and small left basilar pneumothoraces with bilateral chest tubes in place. Similar appearance compared to the chest radiograph from 06/13/2023.
Subjective Data
-
Date of Service:
Date of Service: June 20, 2023
Chief Complaint: Pulmonary Follow Up
Subjective:
Hospice consult placed
Denies major complaints
Review of Systems
General: Other (no major complains)
Objective Data
Data Reviewed
Vital Signs / I&O / Oxygen:
Vital Signs
Temp Pulse Resp BP Pulse Ox
97.7 F 73 12 119/54 100
06/20/23 04:00 06/20/23 06:00 06/20/23 05:30 06/20/23 06:00 06/20/23 06:00
Intake and Output
06/19/23 06/20/23 06/21/23
06:59 06:59 06:59
Intake Total 680 / 680 1040 / 1040
Output Total 1840 / 1840 1880 / 1880
Balance -1160 / -1160 -840 / -840
SaO2 [CPAP/PSV] 96
SaO2 [P-A/C] 96
SaO2 100
Nasal Cannula flow liters per 10
minute
Physical Exam
General: Respiratory Distress (negative) and Chills (negative)
HEENT: Normocephalic, Anicteric and Moist Mucous Membranes
Cardiovascular: S1-S2, Murmur (n), JVD, Peripheral Edema (n), Calf Tenderness (n) and Other (Tachycardic)
Respiratory: Wheeze (negative), Crackles (negative), Rhonchi (mainly on left hemithorax), Accessory Resp Muscle Use (positive, worsens with movement), Stridor (n) and Chest Tube (bilateral ch tubes with mild air leak)
GI: Soft, Non Distended and Non Tender
Neurology: AO x 3 and No Motor Deficits
Skin: Warm and Dry
Labs/Micro/Reports
Lab Data
06/19/23 03:55
06/19/23 03:55
Microbiology
06/14/23 18:08 Blood/Venous Blood Culture - Final
No Growth - Final Report
06/15/23 17:41 Sputum Respiratory Culture - Final
Usual Respiratory Danielle
06/15/23 17:41 Sputum Gram Stain - Final
--- NOTE | 2023-06-20 08:23 | W.PN.HOSP.TC ---
Today's Communication/Plan
-
await formal sign on to hospice
Assessment / Plan
Assessment / Plan
pt is a 77 year old female
Acute hypoxic and hypercapnic respiratory failure on admission due to spontaneous pneumothorax and severe COPD exacerbation POA--s/p Emergent intubation in the ICU 06/07, Extubated 06/08--decadron to methylprednisolone (WBC increased/increasing likely
due to steroids)--cont duonebs
Spontaneous L lung pneumothorax following intubation AND Spontaneous R lung pneumothorax--Status post emergent Left chest tube placement 06/07/2023--Status post emergent Right chest tube placement 06/13/2023--apprec global regulatory affairs manager--avoid positive
pressure ventilation-- DNR--cont unasyn, cultures neg--leukocytosis likely steroid induced--CT surgery consulted, surgical risk is extreme, and patient is not considered a candidate--pt agreeable to hospice, consult placed
likely acute anemia due to blood from chest tube--trend H&H--consider transfusion
Likely compensated shock with positive pressure ventilation and sedation S/E, resolved--Off Levophed
Mild hyponatremia--follow
Acute urinary retention--Duran placed
Benign Hypertension--BP stable off Levophed support--cont MICA WASHER GLUER Lisinopril with holding parameter--Off MICA WASHER GLUER Norvasc
Hypothyroidism, Stable--Continue T4 supplementation.
DVT Prophylaxis: Lovenox SQ
Code Status: DNR
Anticipated Discharge: 24 - 48 hours
Subjective/Interval History
-
Date of Service: June 20, 2023
pt tearful, upset kids are having tough time with hospice....
Objective Data
-
Vital Signs:
max temp for 24 hours
06/19/23
19:40
Temp 97.9 F
Vital Signs
Temp Pulse Resp BP Pulse Ox
97.9 F 73 12 119/54 100
06/20/23 07:30 06/20/23 06:00 06/20/23 05:30 06/20/23 06:00 06/20/23 06:00
I&O
06/19/23 06/20/23 06/21/23
06:59 06:59 06:59
Intake Total 680 / 680 1040 / 1040
Output Total 1840 / 1840 1880 / 1880
Balance -1160 / -1160 -840 / -840
Review of Systems
-
All other systems: Reviewed and negative
Physical Exam
-
General: Well Developed, Well Nourished and No Apparent Distress
HEENT: Normocephalic, Atraumatic and Oxygen (NRB mask--refused breathing treatments this AM)
Respiratory: Clear to Auscultation and Chest Tubes (bilateral with air leaks); Negative Wheezes, Rhonchi or Crackles
Cardiac: Regular Rhythm and S1/S2; Negative Murmur
GI: Soft, Nontender, Nondistended and Normal Bowel Sounds
Musculoskeletal: No Clubbing, No Cyanosis and No Edema
Skin: Warm
Neuro: Awake
Psych: Calm
[2023-06-20] MEDS: ZESTRIL 30 MG PO (08:36)
[2023-06-20] MEDS: PEPCID 20 MG PO (08:36)
[2023-06-20] MEDS: PROTONIX 40 MG PO (08:36)
[2023-06-20] MEDS: MORPHINE ORAL SOLUTION 10 MG PO ×4 (08:36→22:02)
[2023-06-20] MEDS: MYCOSTATIN ORAL SUSPENSION PO ×2 (08:36→08:49)
[2023-06-20] MEDS: ZITHROMAX 250 MG PO (08:36)
--- NOTE | 2023-06-20 09:00 | PTCARENOTE ---
Rec'd pt at 0800 awake alert and oriented resting in bed. Overall did say that she got some sleep last night. States she was tearful earlier this morning thinking about everything. Reemphasized with pt that our goal is to keep her comfortable. Given
standing dose of oral morphine. Does admit to 5/10 R lat chest soreness and generalized achiness. CORDOBA. Skin is pale pink wm and dry. Respirs are shallow and at times tachypnic. Does get winded with exertion. Talking intermittently will get her
winded as well. Currently on 100% NRB mask but will intermittently use 12L midflow mostly when she is eating. Sats are anywhere from 92-98%. BS are coarse and decreased throughout. R lat CT to -20 cm water suction. +3-4 airleak. No crepitus draining
sang drainage. Dsg is D+I. L lat CT to -20 cm water suction. +1 air leak. No crepitus. Drsg is D+I. Monitor SR-ST. + pulses. No edema. Vs as documented. Abd is round and soft with + BS. Aware of concern from nursing that she has not moved her bowels
in 7 days. Does not want the Miralax. Discussed with MD and pharmacy and will add Senna. Duran intact for yellow urine. R upper arm midline site wnl. Capped int intact L hand. Repositioned. Ready to eat breakfast. Call marina in reach. at the
bedside.
--- NOTE | 2023-06-20 09:38 | CM ---
Patient seen at bedside. Hospice to have discussion later today per physician. CM will continue to follow for discharge planning needs.
Plan; pending family choice; hospice
--- NOTE | 2023-06-20 11:00 | PTCARENOTE ---
Hospice in and had long discussion with pt and family regarding plan of care and goals of care. Pt aware plan is to keep her comfortable. Currently waiting for some additional family and Hospice will follow. States she is comfortable currently. Goes
between 100% NRB mask and 12 L midflow. at the bedside
[2023-06-20] MEDS: MIRALAX PO (11:08)
[2023-06-20] MEDS: SENOKOT 8.59999999999999964 MG PO ×2 (12:20→19:47)
--- NOTE | 2023-06-20 13:00 | PTCARENOTE ---
Has been visiting with family all afternoon. Did not want lunch currently. Repositioned. No changes with chest tubes
--- NOTE | 2023-06-20 15:00 | PTCARENOTE ---
Good appetite for lunch. Medicated with Morphine 1 mg IV for R chest tube site soreness and generalized achiness 08/27, also prior to turning for care Complete CHG bath given. Pt turned and repositioned. Family at the bedside. States she is very
comfortable. Intermittently can hear an audible air leak in the R chest tube. Level 4-5 bubbling. L chest tube Level 1 air leak. Dressings are D+I. Call marina in reach.
--- NOTE | 2023-06-20 15:01 | HOSPNOTE ---
Spoke with patient and spouse, offered support. The patient and the spouse know to reach out to me to answer any further questions. Will continue to follow daily.
[2023-06-20] MEDS: MORPHINE SULFATE 1 MG IV ×2 (15:07→19:46)
[2023-06-20] MEDS: LOVENOX 30 MG SC (17:27)
[2023-06-20] MEDS: FLUSH (NSS) 1 FLUSH IV (17:30)
--- NOTE | 2023-06-20 18:00 | PTCARENOTE ---
Resting visiting with family. Had one episode around 1730 when she had increased discomfort at her R chest tube site but was due for her Tylenol and Oral morphine- GIven as ordered. Pt also repositioned. No other changes.
--- NOTE | 2023-06-20 20:00 | PTCARENOTE ---
Received patient AAOx3, in bed, following commands, complaining of pain at right chest tube site, received prn morphine for moderate pain. Family at bedside. Normal sinus/sinus tach, 80s-100s. BP stable, 100s/60s. Weak palpable pedal pulses
bilaterally, palpable radial pulses bilaterally. Afebrile. On nonrebreather, saturating 100%. Lung sounds coarse and diminished throughout. Right chest tube dressing CDI, no crepitus. Set to -20 suction, +3 air leak. Left chest tube dressing CDI, no
crepitus. Set to -20 suction, +1 air leak. Abdomen round, hypoactive bowel sounds, no bowel movement for 7 days, senna given. Duran for end of life care, draining clear, yellow urine. Midline and PIV WNL. Hourly rounding and patient safety checks
ongoing, emotional support provided.
[2023-06-20] MEDS: SINGULAIR 10 MG PO (22:03)
[2023-06-20] MEDS: PRAVACHOL 20 MG PO (22:03)
[2023-06-21] VITALS (14 sets, daily range): BP systolic 69–111; BP diastolic 43–63
[2023-06-21] MEDS: TYLENOL 1000 MG PO ×2 (00:22→06:26)
[2023-06-21] MEDS: UNASYN IV ×2 (00:22→06:26)
[2023-06-21] MEDS: SYNTHROID 50 MCG PO (06:26)
--- NOTE | 2023-06-21 08:25 | W.PN.HOSP.TC ---
Today's Communication/Plan
-
awaiting final hospice decisions
Assessment / Plan
Assessment / Plan
pt is a 77 year old female
Acute hypoxic and hypercapnic respiratory failure on admission due to spontaneous pneumothorax and severe COPD exacerbation POA--s/p Emergent intubation in the ICU 06/07, Extubated 06/08--decadron to methylprednisolone (WBC increased/increasing likely
due to steroids)--cont duonebs
Spontaneous L lung pneumothorax following intubation AND Spontaneous R lung pneumothorax--Status post emergent Left chest tube placement 06/07/2023--Status post emergent Right chest tube placement 06/13/2023--apprec rehab therapist--avoid positive
pressure ventilation-- DNR--cont unasyn, cultures neg--leukocytosis likely steroid induced--CT surgery consulted, surgical risk is extreme, and patient is not considered a candidate--pt agreeable to hospice, awaiting final decisions
likely acute anemia due to blood from chest tube--trend H&H--consider transfusion
Likely compensated shock with positive pressure ventilation and sedation S/E, resolved--Off Levophed
Mild hyponatremia--follow
Acute urinary retention--Duran placed
Benign Hypertension--BP stable off Levophed support--cont POT ROOM TAPPER Lisinopril with holding parameter--Off POT ROOM TAPPER Norvasc
Hypothyroidism, Stable--Continue T4 supplementation.
DVT Prophylaxis: Lovenox SQ
Code Status: DNR
Anticipated Discharge: 24 - 48 hours
Subjective/Interval History
-
Date of Service: June 21, 2023
pt very tired and constipated
Objective Data
-
Vital Signs:
max temp for 24 hours
06/20/23
23:17
Temp 98.0 F
Vital Signs
Temp Pulse Resp BP Pulse Ox
97.3 F 74 8 90/50 100
06/21/23 04:07 06/21/23 07:30 06/21/23 07:30 06/21/23 06:00 06/21/23 06:00
I&O
06/20/23 06/21/23 06/22/23
06:59 06:59 06:59
Intake Total 1040 / 1040 1160 / 1160
Output Total 1880 / 1880 1050 / 1050
Balance -840 / -840 110 / 110
Review of Systems
-
All other systems: Reviewed and negative
Physical Exam
-
General: Well Developed, Well Nourished and No Apparent Distress
HEENT: Normocephalic and Atraumatic
Respiratory: Clear to Auscultation, Decreased Breath Sounds and Chest Tubes (bilateral); Negative Wheezes or Rhonchi
Cardiac: Regular Rhythm and S1/S2; Negative Murmur
GI: Soft, Nontender, Nondistended and Normal Bowel Sounds
Musculoskeletal: No Clubbing, No Cyanosis and No Edema
--- NOTE | 2023-06-21 08:52 | W.PN.PUL3 ---
Addendum entered and electronically signed by Bobby Lara MD 06/26/23 10:06:
CDI
CT suspicious for aspiration pneumonia cited by preceding ludlow machine operator, recommended unasyn from 06-14 to 06-21-23
Original Note:
Today's Communication / Plan
-
O2
Chest tubes mgmt
Complete atb
Pred taper
Assessment
-
77-year-old woman with history of COPD, initially admitted with acute exacerbation of COPD.� Emergently transferred to ICU on 06/07/2023 after developing acute onset shortness of breath.� Found to have a left-sided pneumothorax.� Chest tube was
placed.� Patient was intubated for hypercapnic respiratory failure.
Impression:
Acute hypercapnic respiratory failure due to severe exacerbation of COPD-transfer from floors 06/07/2023
Emergently intubated at the bedside in the ICU-06/07/2023 - extubated 06/08/2023
CT chest this admission: Severe emphysema.� No pneumonia.
Spontaneous secondary pneumothorax on the left c/b persistent air leak, appears loculated via CTA chest done 06/12/2023
Status post emergent chest tube placement 06/07/2023 but now with possible chest tube dysfunction either due to compression from partially re-expanded lung vs chest tube torsion --> repositioned by IR 06/13/2023
Right sided secondary pneumothorax (developed after returning from IR on 06/13/2023 after going down for L-sided chest tube re-positioning) s/p bedside chest tube clamped as of evening of 06/14
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
Very severe COPD (FEV1: 30%, DLco: 6% via PFT from 02/2023, decreased from DLco of 27% via PFT from 05/2018), on nocturnal and exertional home O2 at 2LPM, on trelegy, albuterol HFA/nebs, montelukast
Follows with Dr. Ahmadi
Air trapping also seen due to emphysema
HTN
Hypothyroidism
HLD
Assessment and plan:
On -, pt was was emergently intubated due to worsening shortness of breath-initially admitted for acute exacerbation of COPD
Pt extubated the next day
-
Secondary spontaneous pneumothorax on the left and right
s/p bedside chest tube placement 06/07/2023.
Chest x-ray 06/09/2023: Persistent 5 to 10% basilar pneumothorax.
CT chest with moderately sized left-sided partially loculated pneumothorax with near complete left lower lobe atelectasis. No tension seen. Also a left upper lobe suspected pneumatocele. Considering patient is more symptomatic despite having a
chest tube on negative suction at [id number], additional chest tube to be placed to see if this helps her Sx.
Considering her left-sided air leak persists, she needs to be evaluated by thoracic surgery for pleurodesis - other option besides surgery is bronchoscopic valve placement; she is high risk for either of these procedures and I do not feel any loss
of lung function will be tolerated given her DLco was DLco of 27% in October 2021 (last PFT in 02/2023 shows DLco of 6% with DLco/VA 9% - unclear if this is legitimate though, may be falsely low)
Continue high-FiO2 oxygen to help resorb PTX --> avoid all positive pressure oxygen modalities (i.e., high flow, BiPAP) as the positive pressure will only worsen her PTX
Regarding the right PTX: Chest tube placed by Dr Mckeon at bedside on 06/13, PTX appears almost fully resolved, and no air leak as of this AM (06/14), put chest tube to water seal on AM of 06/14, and clamped in evening of 06/14. CXR 06-15 showed
right pneumothorax recurred
Consulted CT surgery on 06/14 for their opinion on if any thoracic intervention can be done.
Seen by Dr Robledo 06-19, no candidate for surgery, patient and family aware
Patient changed code status to DNR/DNI 06-19, she wanted to embrace comfort care, hospice consulted
Discussed with hospice nurse 06-21, patient noted ready for hospice, this will be ongoing discussion
Anticipate a prolonged stay as bilateral chest tubes continue with persistent though mild air leak. Once air leak resolved will proceed to water seal and subsequent clamp trial with goal to remove chest tubes at some point
Tracheal aspirate with normal respiratory fang� kwaku (likely contaminant and not pathological)
-
Continue systemic steroids; initially on dexamethasone�--> reduced on 06/11 from 4 mg IV q8 hours to 4mg IV q12hr (equivalent to 53mg prednisone) --> raised back to solumedrol 40mg IV q6hr on 06/13, slowly tapering down, change to pred 40 mg qd
starting 06-21 and taper by 10 mg q2d to off
Nebulizers-Pulmicort/levalb n tid (changed to prn 06-20).
Azithromycin for anti-inflammatory properties
Prior CT chest on 06/06 without pneumonia.� Normal respiratory fang 06/05/2023 --> however looks like she may have aspirated as per CTA chest from 06/13, and her WBC is elevated (albeit also on steroids). Started Unasyn on 06/14 and will give 7 days
total through 06-21
Re-check blood Cx, check sputum Cx, legionella and Strep pneumo urine antigens are negative; MRSA swab negative
Pain control
APAP and oral morphine solution ATC
prn IV morphine
-
Tolerating diet as long as not too SOB
-
Monitor blood sugars on high-dose of steroids -->
Insulin sliding scale
Goal BG 140-180
-
DVT prophylaxis subcu Lovenox
PPI for GI prophylaxis
Continue IMU level of care (upgraded from tele on 06/13)
Pulmonary will continue to follow.
Data:
CTA Chest 06-13-2023:
1. No evidence of pulmonary embolism.
2. Moderate partially loculated left-sided pneumothorax with associated complete left lower lobe atelectasis. No overt tension. Consider possibility of chest tube dysfunction and/or bronchopleural fistula.
3. Probable pneumatocele development in the left upper lobe.
4. Scattered bronchial wall thickening and mucous plugging with possible superimposed aspiration pneumonia in the left lower lobe.
CXR 06-16-2023: Compared to prior examination, there has been no significant interval change. Specifically, moderate right-sided pneumothorax is again noted, with a small right apical and larger right inferior pneumothorax. Hazy opacities again
demonstrated in the lower right hemithorax, likely reflecting the presence of pleural fluid.
CXR 06-14-2023: Small to moderate right and small left basilar pneumothoraces with bilateral chest tubes in place. Similar appearance compared to the chest radiograph from 06/13/2023.
Subjective Data
-
Date of Service:
Date of Service: June 21, 2023
Chief Complaint: Pulmonary Follow Up
Subjective:
No major events reported overnight
Discussed with comfort nurse, patient no acute ready for hospice at this time
Review of Systems
General: Fever (n), Sweats (n), Chills (n) and Satisfactory Appetite
HEENT: Epistaxis (n)
Cardiopulmonary: Dyspnea (n), Cough (n), Chest Pain (incisional) and Hemoptysis (n)
GI: Abdominal Pain (n), Nausea and Vomiting
Neuro: Weakness
Objective Data
Data Reviewed
Vital Signs / I&O / Oxygen:
Vital Signs
Temp Pulse Resp BP Pulse Ox
97.3 F 74 8 90/50 100
06/21/23 04:07 06/21/23 07:30 06/21/23 07:30 06/21/23 06:00 06/21/23 06:00
Intake and Output
06/20/23 06/21/23 06/22/23
06:59 06:59 06:59
Intake Total 1040 / 1040 1160 / 1160
Output Total 1880 / 1880 1050 / 1050
Balance -840 / -840 110 / 110
SaO2 [CPAP/PSV] 96
SaO2 [P-A/C] 96
SaO2 100
Nasal Cannula flow liters per 10
minute
Physical Exam
General: Respiratory Distress (negative) and Chills (negative)
HEENT: Normocephalic, Anicteric and Moist Mucous Membranes
Cardiovascular: S1-S2, Murmur (n), JVD, Peripheral Edema (n), Calf Tenderness (n) and Other (Tachycardic)
Respiratory: Wheeze (negative), Crackles (negative), Rhonchi (mainly on left hemithorax), Accessory Resp Muscle Use (positive, worsens with movement), Stridor (n) and Chest Tube (bilateral ch tubes with mild air leak)
GI: Soft, Non Distended and Non Tender
Neurology: AO x 3 and No Motor Deficits
Skin: Warm and Dry
Labs/Micro/Reports
Lab Data
06/19/23 03:55
06/19/23 03:55
Microbiology
06/14/23 18:08 Blood/Venous Blood Culture - Final
No Growth - Final Report
06/15/23 17:41 Sputum Respiratory Culture - Final
Usual Respiratory Fang
06/15/23 17:41 Sputum Gram Stain - Final
--- NOTE | 2023-06-21 09:14 | CM ---
Addendum entered by Lola Lainez 06/21/23 10:58:
per supervisor garage patient is now ready to start the process for comfort care/hospice.
Original Note:
Patient seen at bedside, patient considering hospice with family supports and [facility] checking with her. CM will continue to follow for discharge planning needs.
Plan; pending, considering hospice at this time
[2023-06-21] MEDS: MORPHINE ORAL SOLUTION 10 MG PO (10:11)
[2023-06-21] MEDS: DULCOLAX 10 MG RECTAL (10:12)
[2023-06-21] MEDS: SENOKOT 8.59999999999999964 MG PO (10:13)
[2023-06-21] MEDS: DELTASONE 40 MG PO (10:15)
[2023-06-21] MEDS: PROTONIX 40 MG PO (10:15)
[2023-06-21] MEDS: ZITHROMAX 250 MG PO (10:15)
[2023-06-21] MEDS: ZESTRIL PO (10:16)
[2023-06-21] MEDS: PEPCID 20 MG PO (10:16)
--- NOTE | 2023-06-21 11:45 | HOSPNOTE ---
Spoke with patient and family about comfort care. The patient is now in agreement to start on a morphine drip for symptom management. Spoke with Attending and RN and orders will be placed and I will continue to follow and support family and patient.
[2023-06-21] MEDS: MORPHINE 100 IV (14:07)
[2023-06-21] MEDS: MORPHINE SULFATE 2 MG IV ×2 (14:17→15:47)
--- NOTE | 2023-06-21 14:23 | PTCARENOTE ---
Morphine qtt initiated Step 2 at 2mg/ml for end of life Dyspnea. via Rt midline . B/L chest tubes remain to wall suctioning .
--- NOTE | 2023-06-21 16:40 | PN.CDI ---
CDI
- -
CDI:
Physician Documentation Request
Admit Date: 06/04/23 05:41
Dear Doctor
Please review the following and provide your response in the progress notes.
Clinical Indicators:
Pt admitted with COPD exacerbation Acute hypoxic/Hypercapnic respiratory failure/Now with chest tubes due to Pneumothorax bilaterally
Documented per pulmonology notes 06/14-06/21 ,' however looks like she may have aspirated as per CTA chest from 06/13, and her WBC is elevated (albeit also on steroids). ...Unasyn and give 7 days total ...'
Please provide in your note(s) the suspected diagnosis for the above treatment of Unasyn:
Aspiration Pneumonia
Aspiration Pneumonitis
Other
Use of terms such as suspected, likely, concern for, or probable (associated with a specific diagnosis that is being evaluated, monitored, or treated as if it exists) are acceptable and can be coded in the inpatient setting, when documented at the
time of discharge.
Thank you,
Jeanie Ascencio RN
CDI Specialist
Hiram Text
Please use your independent medical judgment in providing your response.
--- NOTE | 2023-06-21 17:10 | PTCARENOTE ---
patient in bed AAO x3. Denies pain No Dyspnea noted. Morphine 2mg/2ml STep 2 end of life infusing via Rt mid-line . family
--- NOTE | 2023-06-21 20:00 | PTCARENOTE ---
Assumed care of patient at 1900. Pt. made comfort care earlier today. Morphine gtt infusing per protocol. Pt. is awake, alert, and oriented. States she is comfortable at this time. Afebrile. Heart rhythm sinus tachy. Currently Midflow nasal cannula.
BL chest tubes to suction per order. Clear liquid diet ordered. Duran catheter in place, draining without issue. Skin as documented. Discussed plan of care. Vital signs stable at this time.
[2023-06-22] VITALS: BP 100/52
[2023-06-22 02:00] VITALS: BP 87/50
[2023-06-22] MEDS: MORPHINE SULFATE 2 MG IV ×2 (03:52→08:16)
[2023-06-22 04:00] VITALS: BP 113/59
[2023-06-22 06:00] VITALS: BP 105/44
[2023-06-22 08:00] VITALS: BP 93/36
--- NOTE | 2023-06-22 08:15 | W.PN.HOSP.TC ---
Today's Communication/Plan
-
Continue with comfort measures.
Assessment / Plan
Assessment / Plan
pt is a 77 year old female
Acute hypoxic and hypercapnic respiratory failure on admission due to spontaneous pneumothorax and severe COPD exacerbation POA--s/p Emergent intubation in the ICU 06/07, Extubated 06/08--rx with steroids--cont duonebs
Spontaneous L lung pneumothorax following intubation AND Spontaneous R lung pneumothorax--Status post emergent Left chest tube placement 06/07/2023--Status post emergent Right chest tube placement 06/13/2023--apprec sat tutor--avoid positive
pressure ventilation-- DNR--cont unasyn, cultures neg--leukocytosis likely steroid induced--CT surgery consulted, surgical risk is extreme, and patient is not considered a candidate--pt agreeable to hospice, awaiting final decisions
likely acute anemia due to blood from chest tube-
Likely compensated shock with positive pressure ventilation and sedation S/E, resolved--Off Levophed
Acute urinary retention--Duran placed
Benign Hypertension--BP stable off Levophed support--cont BIOCHEMISTRY TECHNICIAN Lisinopril with holding parameter--Off BIOCHEMISTRY TECHNICIAN Norvasc
Hypothyroidism, Stable--Continue T4 supplementation.
DVT Prophylaxis: Lovenox SQ
Code Status: DNR
Increase morphine dose for comfort.
Continue with comfort measures.
Await decision on hospice.
Discussed with SQL APPLICATION DEVELOPER
Anticipated Discharge: 24 - 48 hours
Subjective/Interval History
-
Date of Service: June 22, 2023
Patient currently on comfort measures and IV morphine for comfort. She is on 2 mics of IV morphine. She says she is comfortable but still has pain in the right chest wall area.
I could see her uncomfortable - she is catching her breath while talking. She seems to be uncomfortable during conversation because of chest wall pain.
Objective Data
-
Vital Signs:
Vital Signs
Temp Pulse Resp BP Pulse Ox
98 F 103 13 105/44 96
06/22/23 07:27 06/22/23 06:00 06/22/23 06:00 06/22/23 06:00 06/22/23 00:00
I&O
06/21/23 06/22/23 06/23/23
06:59 06:59 06:59
Intake Total 1160 / 1160
Output Total 1050 / 1050 1959
Balance 110 / 110 -193 / -1932
Review of Systems
-
Constitutional: Denies Fever
Respiratory: Reports Trouble Breathing (ok)
Cardiac: Reports Chest Pain; Denies Palpitations
Abdomen/GI: Denies Abdominal Pain or Nausea
Physical Exam
-
General: No Apparent Distress
HEENT: Moist Mucous Membranes
Respiratory: Clear to Auscultation (anteriorly)
GI: Soft
Neuro: AO x 3
Data Reviewed
-
Labs: Labs Reviewed by me
--- NOTE | 2023-06-22 11:52 | W.PN.UPDATE ---
Update Note
Progress Note Update
Patient opted for hospice
Currently on morphine gtt
Will not remove chest tubes before demise
--- NOTE | 2023-06-22 12:00 | HOSPNOTE ---
Patient chart reviewed and she is [facility] for the management of pain and dyspnea with morphine drip at 2 mg /hr and 2 mg ivp q20 min of morphine for breakthrough. These symptoms could not be managed in the outpatient setting. Dr. Martinez and
Dr. Huerta agreeable. Spouse Leonard agreeable and at bedside. Patient will be admitted [facility] level of hospice care today.
== END 2023-06-22 13:33 | disposition hospice, inpatient (51) | DRG 208 ==
LOC: ICU 05:41
PROVIDERS: Internal Medicine; Internal Medicine Critical Care Medicine; Nurse Practitioner Primary Care; Radiology Vascular & Interventional Radiology; ADMITTING PHYSICIAN Hospitalist; ATTENDING PHYSICIAN Internal Medicine; EMERGENCY PHYSICIAN Emergency Medicine; FAMILY PHYSICIAN Family Medicine; OTHER PHYSICIAN Clinical Nurse Specialist Acute Care; OTHER PHYSICIAN Internal Medicine Pulmonary Disease
PROC: 0BH17EZ Insertion of Endotracheal Airway into Trachea, Via Natural or Artificial Opening (ICD-10-PCS; 2023-06-07)
PROC: 5A1945Z Respiratory Ventilation, 24-96 Consecutive Hours (ICD-10-PCS; 2023-06-07)
PROC: 0W9B30Z Drainage of Left Pleural Cavity with Drainage Device, Percutaneous Approach (ICD-10-PCS; 2023-06-07)
PROC: 0W9900Z Drainage of Right Pleural Cavity with Drainage Device, Open Approach (ICD-10-PCS; 2023-06-13)
PROC: 0W9930Z Drainage of Right Pleural Cavity with Drainage Device, Percutaneous Approach (ICD-10-PCS; 2023-06-18)
DX: J44.1 Chronic obstructive pulmonary disease with (acute) exacerbation (principal); J96.01 Acute respiratory failure with hypoxia; J96.02 Acute respiratory failure with hypercapnia; J69.0 Pneumonitis due to inhalation of food and vomit; J93.12 Secondary spontaneous pneumothorax; E87.1 Hypo-osmolality and hyponatremia; I10 Essential (primary) hypertension; E03.9 Hypothyroidism, unspecified
CPT/HCPCS: 32556; 32557; 36600; 71045; 71250; 71275; 80048; 80053; 81003; 82805; 82962; 83735; 84100; 84145; 84478; 84484; 85025; 85027; 85379; 85610; 85730; 87040; 87070; 87205; 87449; 87811; 87899; 93005; 94002; 94003; 94640; 94668; 96374; 97116; 97162; 99285; C1729; C1769; Q9967

== ENCOUNTER 2023-06-22 13:34 | Inpatient (IN) | payer OTHER, SELFPAY ==
[2023-06-22 14:04] VITALS: BMI 18.0
[2023-06-22 14:31] VITALS: BP 99/51
--- NOTE | 2023-06-22 15:17 | PTCARENOTE ---
Pt admitted to Hospice. Morphine gtts infusing at 2mg/hr for comfort. Pt drowsy, awakens easily, states that she is comfortable. Turned and repositioned, incont for small amt soft brown stool. Pericare performed. Duran draining yellow urine. Right
anterior and left lateral chest tubes in place to -20cm sx. Dressings C/D/I, no crepitus. Midflow lowered to 8L. Family at bedside.
--- NOTE | 2023-06-22 16:21 | CHAP ---
Mrs. Richardson and her family welcomed me graciously and we prayed together, thanking God and asking His blessings. I offered spiritual and emotional support, and assured the family they could always call on us.
--- NOTE | 2023-06-22 17:13 | HOSPNOTE ---
.PATIENT IS BEING ADMITTED TO HOSPICE UNDER [facility] LEVEL OF CARE WITH A TERMINAL DIAGNOSIS OF ACUTE AND CHR RESP FAILURE, UNSP W HYPOXIA OR HYPERCAPNIA. PATIENT WITH SHORTNESS OF BREATH WITH TALKING DESPITE OXYGEN INITALLY AT 15L MIDFLOW. REQUIRING
MORPHINE DRIP FOR COMFORT, TITRATED TO 2 MG/HOUR. BILATERAL CHEST TUBES DUE TO SPONTANEOUS PNEUMOTHORAX. PATIENT IS EXHAUSTED FROM RESPIRATORY STATUS AND STATES SHE IS READY TO . DISCHARGE PLANNING IN PROGRESS.
PATIENT WAS AWAKE AND ORIENTED TO PERSON, PLACE. ABLE TO ANSWER SOME ASSESSMENT QUESTIONS. MINIMAL INTAKE. SPOUSE CONRAD, DAUGHTER CHARLOTTE AND SON OSCAR PRESENT FOR VISIT. TEARFUL BUT ACCEPTING OF PATIENT'S WISH TO . HOSPICE POC REVIEWED AND ALL
QUESTIONS ANSWERED. EMOTIONAL SUPPORT PROVIDED.
INFORMAL CONFERENCE WITH BETITO
--- NOTE | 2023-06-22 17:24 | HOSPNOTE ---
CORRECTION: NURSE SALMERON
--- NOTE | 2023-06-22 19:50 | PTCARENOTE ---
Assumed care of patient at 1900. Pt. currently in bed. Lethargic, but arouses to voice. States she is comfortable at this time. Pt. on morphine gtt per end of life care. Made hospice earlier today. BL chest tubes to suction per order. Patient's
at bedside. Discussed plan of care. Vital signs stable at this time.
[2023-06-22 22:29] VITALS: BP 71/33
--- NOTE | 2023-06-23 07:05 | W.PN.DEATH ---
Pronouncement of
-
Called to see patient to pronounce.
No spontaneous heart tones or respirations noted.
Patient not responsive to verbal stimuli.
Patient is pronounced .
Time of : 06:47
Date of : 06/23/23
Cause of : acute hypoxic and hypercapnic respiratory failure due to bilateral spontaneous pneumothoraxes
Family Notified: Yes ( on way in)
--- NOTE | 2023-06-23 07:16 | W.DCSUMMARY ---
Discharge Summary
Discharge Data
Date of Admission: 06/22/23
Date of Discharge: 06/23/23
-
Pending Results: No
Hospital Course
Primary care physician : Shantelle Strickland
Principal Discharge diagnosis : Acute hypoxic and hypercapnic respiratory failure due to bilateral pneumothoraxes
Chronic Discharge diagnosis : Chronic obstructive pulmonary disease, essential hypertension, hypothyroidism
Hospital Course : Patient is a 77-year-old female who was admitted to hospice for acute hypoxic and hypercapnic respiratory failure due to bilateral pneumothoraxes from significant chronic obstructive pulmonary disease exacerbation. Unfortunately,
patient was not a surgical candidate to repair the air leaks found by persistent need for bilateral chest tubes. Patient was eventually admitted to hospice.
Morphine drip was started and titrated for comfort.
Patient on June 23, 2023 at 06:47 AM. Pronounced time of was 07:00 AM. Cause of is listed as above. on his way in.
Discharge Plan
-
Referrals:
UNKNOWN - PT NOT,INTERVIEWE [Family Provider] -
Prescriptions:
No Action
amlodipine 10 MG tablet
10 mg PO DAILY
levothyroxine 50 MCG tablet
50 mcg PO DAILY@0600
lisinopril [Zestril] 30 MG tablet
30 mg PO DAILY
montelukast 10 MG tablet
10 mg PO HS
Trelegy Ellipta 100-62.5-25 mcg blister with device
1 ea INHALATION R DAILY
pravastatin 20 mg tablet
20 mg PO HS
famotidine 20 mg Tablet
20 mg PO DAILY 30 Days Qty: 30 0RF
albuterol sulfate 2.5 mg /3 mL (0.083 %) Solution For Nebulization
2.5 mg INHALATION R BID
Theragen Tablet
1 tab PO DAILY
acetaminophen [Tylenol Extra Strength] 500 mg Tablet
1,000 mg PO HS
budesonide 0.5 mg/2 mL Suspension For Nebulization
0.5 mg INHALATION R BID
albuterol sulfate [ProAir HFA] 90 mcg/actuation Hfa Aerosol Inhaler
2 puff INHALATION R Q6HPRN PRN (Reason: sob)
guaifenesin 400 mg Tablet
400 mg PO BID
omega 2-omy-glf-fish oil [Fish Oil] 1,000 mg (120 mg-180 mg) Capsule
1 cap PO DAILY
--- NOTE | 2023-06-23 08:39 | PTCARENOTE ---
Pt at 06, Dr. Benitez notified and in to pronounce pt. Pt's called and notified by nightshift RN. at bedside at this time. Emotional support given. JUSTYNA notified.
--- NOTE | 2023-06-23 10:03 | PTCARENOTE ---
Postmortem care completed. Belongings taken home by .
== END 2023-06-23 10:10 | disposition expired | DRG 190 ==
LOC: ICU 13:34
PROVIDERS: ADMITTING PHYSICIAN Internal Medicine; ATTENDING PHYSICIAN Internal Medicine
DX: J44.1 Chronic obstructive pulmonary disease with (acute) exacerbation (principal); J96.01 Acute respiratory failure with hypoxia; J96.02 Acute respiratory failure with hypercapnia; J93.9 Pneumothorax, unspecified; I10 Essential (primary) hypertension; E03.9 Hypothyroidism, unspecified; E78.5 Hyperlipidemia, unspecified